=== PATIENT | female | born 1975 | race Caucasian/White ===

== ENCOUNTER 2018-11-28 20:16 | Emergency (ER) | payer OTHER, SELFPAY ==
[2018-11-28 20:19] VITALS: BP 180/113; PULSE 105; RESP 18; TEMP 37.1; O2SAT 98; BMI 35.2
[2018-11-28 20:44] LABS: Bacteria Urine None Seen; RBC Urine None Seen (0-5/HPF)
--- NOTE | 2018-11-28 20:52 | ED_ITS ---
HPI - Abdominal Pain General Chief Complaint: Abdominal Pain Stated Complaint: STOMACH PAIN Time Seen by Provider: 11/28/18 20:51 Source: patient Mode of arrival: ambulatory Limitations: no limitations History of Present Illness HPI narrative: 43-year-old female here for evaluation of right lower quadrant abdominal pain. Patient states that it has been going on for the past day or so. No urinary symptoms. No vaginal bleeding. Her last bowel movement was yesterday. Had some vomiting associated with the pain as well. No fevers. Has been taking Tylenol and ibuprofen for the symptoms prior to arrival. Related Data Previous Rx's Medication Instructions Recorded fluconazole [Diflucan] 100 mg PO DAILY #1 tab 11/28/18 ondansetron HCl [Zofran] 4 mg PO Q6-8H PRN #10 tab 11/28/18 Allergies Allergy/AdvReac Type Severity Reaction Status Date / Time Iodine and Iodide Containing Allergy Hives Verified 11/28/18 20:25 Produc latex Allergy Rash Verified 11/28/18 20:25 Penicillins Allergy Anaphylaxis Verified 11/28/18 20:25 hydromorphone [From Dilaudid] AdvReac Nausea Verified 11/28/18 20:25 Review of Systems Constitutional Denies fever(s) and Denies headache(s) ENT Ears, Nose, Mouth, and Throat: Denies headache(s) Cardiovascular Denies chest pain and Denies dyspnea Respiratory Denies dyspnea Gastrointestinal Gastrointestinal: Reports abdominal pain, Denies change in stool character, Reports nausea and Reports vomiting Genitourinary Denies dysuria and Denies vaginal discharge Musculoskeletal Denies myalgias and Denies arthralgias Integumentary/Breasts Denies rash Neurologic Denies headache(s) Hematologic/Lymphatic Denies easy bleeding and Denies easy bruising [facility] Medical History Patient denies medical problems (Acute) Social History Smoking Status: Former smoker Social History Smoking Status: Former smoker Exam Initial Vital Signs Initial Vital Signs: Vital Signs Temperature 98.8 F 11/28/18 20:19 Pulse Rate 105 H 11/28/18 20:19 Respiratory Rate 18 07/08/19 20:19 Blood Pressure 180/113 H 11/28/18 20:19 Pulse Oximetry 98 11/28/18 20:19 Const General: cooperative, comfortable, well developed, well groomed and No acute distress Orientation: alert, awake and oriented x3 HENMT Head: normal to inspection and normocephalic Resp Effort & Inspection: normal respiratory effort Auscultation: clear to auscultation bilaterally Cardio Rate: tachycardic Rhythm: regular rhythm Pulses: radial pulses present GI Inspection: non-distended Palpation: soft, No firm, No guarding and tender (Right lower quadrant) Back/Spine/Pelvis Back: No CVA tenderness Skin Lesions: no lesions Rashes: no rashes Neuro General: alert and awake Cognition: normal cognition Speech: speech normal Motor: muscle tone normal throughout Sensory Exam: no sensory deficits noted Extrem General: normal to inspection and capillary refill normal Course Orders Ordered: ED Orders 11/28/18 20:30 Urine Microscopic Stat 11/28/18 20:44 EKG-12 Lead Stat 11/28/18 21:09 CT abdomen pelvis wo con Stat 11/28/18 21:30 Complete Blood Count AUTO DIFF Stat Comprehensive Metabolic Panel Stat Lipase Stat Partial Thromboplastin Time Stat Prothrombin Time INR Stat Discontinued Medications Acetaminophen/Codeine Phosphate (Tylenol #3 Prepack) 1 bottle MISC SEEINSTR ONE Stop: 11/28/18 23:14 Sodium Chloride (Normal Saline 0.9%) 1,000 mls @ 1,000 mls/hr IV BOLUS ONE Stop: 11/28/18 21:54 Last Infusion: 11/28/18 23:04 Dose: 0 mls/hr Admin: 11/28/18 21:36 Dose: 1,000 mls/hr Morphine Sulfate (Morphine) 4 mg IV NOW ONE Stop: 11/28/18 20:56 Last Admin: 11/28/18 21:35 Dose: 4 mg Ondansetron HCl (Zofran) 4 mg IV NOW ONE Stop: 11/28/18 20:56 Last Admin: 11/28/18 21:35 Dose: 4 mg Ondansetron HCl (Zofran) 4 mg IV NOW ONE Stop: 11/28/18 22:58 Last Admin: 11/28/18 23:00 Dose: 4 mg Ondansetron HCl (Zofran Odt Prepack) 1 bottle MISC SEEINSTR ONE Stop: 11/28/18 23:14 Vital Signs - 8 hr 11/28/18 20:19 11/28/18 22:55 Temperature 98.8 F Pulse Rate 105 H 84 Respiratory Rate 18 19 Blood Pressure 180/113 H Blood Pressure [Left Arm] 167/98 H Pulse Oximetry 98 99 MDM - Abdominal Pain Lab Data Attestation: I reviewed the patient's lab results. Result diagrams: 11/28/18 21:30 11/28/18 21:30 Lab Results 11/28/18 11/28/18 11/28/18 Range/Units 20:30 21:30 21:30 WBC 9.3 (4.5-11.0) X10^3/uL RBC 4.88 (4.0-5.2) X10^6/uL Hgb 14.6 (12.0-16.0) g/dL Hct 42.5 (36-46) % MCV 87.2 (80-100) fL MCH 30.0 (26-34) PG MCHC 34.4 (30-36) % RDW 12.7 (11.6-14.8) % Plt Count 259 (150-400) X10^3/uL Neut % (Auto) 52.8 (50-75) % Lymph % (Auto) 37.9 (25-40) % [place] % (Auto) 7.3 (3-14) % Eos % (Auto) 1.4 L (2-4) % Baso % (Auto) 0.6 (0-2) % Neut # (Auto) 4900 (1583-0621) /uL Lymph # (Auto) 3500 (8599-8513) /uL [place] # (Auto) 700 (0-900) /uL Eos # (Auto) 100 (0-450) /uL Baso # (Auto) 100 (0-100) /uL PT 10.3 (10.1-12.7) SECONDS INR 0.9 (0.9-1.3) APTT 31 (26.4-36.2) SECONDS Sodium (137-145) mmol/L Potassium (3.4-5.1) mmol/L Chloride (98-107) mmol/L Carbon Dioxide (22-32) mmol/L BUN (7-17) mg/dL Creatinine (0.52-1.04) mg/dL Estimated GFR (>60) mL/min BUN/Creatinine Ratio (6-22) Glucose (70-100) mg/dL Calcium (8.4-10.2) mg/dL Total Bilirubin (0.2-1.3) mg/dL AST (14-36) IU/L ALT (9-52) IU/L Alkaline Phosphatase (38-126) U/L Total Protein (6.3-8.2) g/dL Albumin (3.5-5.0) g/dL Globulin (1.7-4.1) g/dL Albumin/Globulin Ratio (1.0-2.8) Lipase (23-300) U/L Urine RBC None seen (0-5/HPF) Urine WBC 0-1/hpf (0-5/HPF) Ur Squamous Epith Cells 0-1 /hpf (0-5/HPF) Urine Bacteria None seen (None) Urine Yeast 10-30/hpf H (None) Ur Culture Indicated? Cult not indicated 11/28/18 Range/Units 21:30 WBC (4.5-11.0) X10^3/uL RBC (4.0-5.2) X10^6/uL Hgb (12.0-16.0) g/dL Hct (36-46) % MCV (80-100) fL MCH (26-34) PG MCHC (30-36) % RDW (11.6-14.8) % Plt Count (150-400) X10^3/uL Neut % (Auto) (50-75) % Lymph % (Auto) (25-40) % [place] % (Auto) (3-14) % Eos % (Auto) (2-4) % Baso % (Auto) (0-2) % Neut # (Auto) (2526-8615) /uL Lymph # (Auto) (5123-6275) /uL [place] # (Auto) (0-900) /uL Eos # (Auto) (0-450) /uL Baso # (Auto) (0-100) /uL PT (10.1-12.7) SECONDS INR (0.9-1.3) APTT (26.4-36.2) SECONDS Sodium 133 L (137-145) mmol/L Potassium 4.3 (3.4-5.1) mmol/L Chloride 97 L (98-107) mmol/L Carbon Dioxide 27 (22-32) mmol/L BUN 14 (7-17) mg/dL Creatinine 0.60 (0.52-1.04) mg/dL Estimated GFR > 60.0 (>60) mL/min BUN/Creatinine Ratio 23.3 H (6-22) Glucose 434 H (70-100) mg/dL Calcium 9.5 (8.4-10.2) mg/dL Total Bilirubin 0.3 (0.2-1.3) mg/dL AST 29 (14-36) IU/L ALT 29 (9-52) IU/L Alkaline Phosphatase 158 H (38-126) U/L Total Protein 7.0 (6.3-8.2) g/dL Albumin 3.8 (3.5-5.0) g/dL Globulin 3.2 (1.7-4.1) g/dL Albumin/Globulin Ratio 1.2 (1.0-2.8) Lipase 381 H (23-300) U/L Urine RBC (0-5/HPF) Urine WBC (0-5/HPF) Ur Squamous Epith Cells (0-5/HPF) Urine Bacteria (None) Urine Yeast (None) Ur Culture Indicated? Point of care testing: Point of Care Testing Test Results Negative Urine Dip Bedside Urine Glucose 1000 mg/dl Bedside Urine Bilirubin - Negative Bedside Urine Ketone - Negative Urine Specific [place] 1.015 Bedside Urine Occult Blood +/- Bedside Urine pH 6.0 Bedside Urine Protein - Negative Bedside Urine Urobilinogen - Negative Bedside Urine Nitrite - Negative Imaging Data CT scan - abdomen: Radiologist's impression: Read by a real radiology Appendix within normal limits No renal calculi or hydronephrosis. 2.2 cm possibly complex small cyst right ovary posterior uterus. Ultrasound follow-up suggested. Moderate fecal retention. MDM Narrative Medical decision making narrative: Patient's CT scan does show a right-sided ovarian cyst which could be the potential cause of her symptoms. I do have a low suspicion for torsion given her exam. Her appendix is unremarkable. She does have yeast in her urine. She states she has had yeast infections in the past. Will prescribe a dose of Diflucan. Hold on any further workup for now. Patient also has moderate stool burden. Her last bowel movement was yesterday. She states she feel like she needs to have a bowel movement now. Patient was given return precautions and follow-up instructions she expressed understanding and agreement with plan. Discharge Plan Departure Patient Disposition: Home Clinical Impression: Abdominal pain Qualifiers: Abdominal location: right lower quadrant Qualified Code(s): R10.31 - Right lower quadrant pain Ovarian cyst Qualifiers: Laterality: right Qualified Code(s): N83.201 - Unspecified ovarian cyst, right side Instructions: DI for Abdominal Pain-Adult Activity Restrictions/Additional Instructions: Take the medications as directed. Contact her primary provider for follow-up. Return to the emergency department for any new or worsening symptoms Prescriptions: New fluconazole [Diflucan] 100 mg tablet 100 mg PO DAILY Qty: 1 RF: 0 ondansetron HCl [Zofran] 4 mg tablet 4 mg PO Q6-8H PRN (Reason: nausea and vomiting) Qty: 10 RF: 0
[2018-11-28 20:59] LABS: Culture Indicated Urine Cult Not Indicated; Squamous Epithelial Cell Urine 0-1 /HPF (0-5/HPF); WBC Urine 0-1/HPF (0-5/HPF)
--- NOTE | 2018-11-28 21:09 | DI.CT.S_ITS ---
PROCEDURE: CT ABDOMEN PELVIS WO CON INDICATIONS: Periumbilical right lower quadrant pain for 3 days TECHNIQUE: After the administration of oral contrast, 5 mm thick sections acquired from the diaphragms to the symphysis. 5 mm coronal and sagittal reformats were performed. For radiation dose reduction, the following was used: automated exposure control, adjustment of mA and/or kV according to patient size. COMPARISON: None. FINDINGS: Image quality: Excellent. ABDOMEN: Lung bases: Lung bases are clear. Heart size is normal. Solid organs: Liver is normal in size. Gallbladder is within normal limits. Pancreas is normal in size. Spleen is normal in size. No adrenal nodules. Both kidneys are normal in size, without hydronephrosis or nephrolithiasis. Peritoneum and bowel: Bowel loops demonstrate normal wall thickness and caliber. No free fluid or air. Appendix is visualized and is within normal limits the moderate amount of fecal stasis in the colon is seen. Nodes and vessels: No retroperitoneal or mesenteric adenopathy by size criteria. Aorta and inferior vena cava are normal in size. Miscellaneous: There is a small periumbilical hernia containing fat only.. PELVIS: Genitourinary: Bladder wall thickness is normal. 2.1 x 2.1 cm complex cystic structure in right adnexa is seen. Miscellaneous: No inguinal hernias or adenopathy. Bones: No suspicious bony lesions. No vertebral body compression fractures. IMPRESSION: 1. Normal appendix. No bowel obstruction. No free fluid or free air. Mild constipation. 2. No renal stone or hydronephrosis. 3. 2.1 cm complex cystic structure in right adnexa and may represent right ovarian cyst. No discrepancies. Dictated by: Marcos Mathur M.D. on 11/29/2018 at 8:19 Approved by: Marcos Mathur M.D. on 11/29/2018 at 8:22
[2018-11-28] MEDS: ONDANSETRON 4 MG/2 ML INJ IV ×2 (21:35→23:00)
[2018-11-28] MEDS: MORPHINE 4 MG/ML INJ IV (21:35)
[2018-11-28] MEDS: SODIUM CHLORIDE 0.9% 1,000 ML 1000 ML IV (21:36)
[2018-11-28 21:37] LABS: Add Manual Diff / Slide Review NO; Basophils Absolute Auto 100 /uL (0-100); Basophils Percent Auto 0.6 % (0-2); Eosinophils Absolute Auto 100 /uL (0-450); Eosinophils Percent Auto 1.4 % (2-4); Hematocrit 42.5 % (36-46); Hemoglobin 14.6 g/dL (12.0-16.0); Lymphocytes Absolute Auto 3500 /uL (1100-4500); Lymphocytes Percent Auto 37.9 % (25-40); Mean Corpuscular HGB Conc 34.4 % (30-36); Mean Corpuscular Volume 87.2 fL (80-100); Monocytes Absolute Auto 700 /uL (0-900); Monocytes Percent Auto 7.3 % (3-14); Neutrophils Absolute Auto 4900 /uL (1500-7000); Neutrophils Percent Auto 52.8 % (50-75); Platelet Count 259 X10^3/uL (150-400); Red Blood Cell Count 4.88 X10^6/uL (4.0-5.2); Red Cell Distribution Width 12.7 % (11.6-14.8); White Blood Cell Count 9.3 X10^3/uL (4.5-11.0)
[2018-11-28 21:43] LABS: INR 0.9 (0.9-1.3); Prothrombin Time 10.3 SECONDS (10.1-12.7)
[2018-11-28 21:46] LABS: PTT Partial Thromboplastin Tim 31 SECONDS (26.4-36.2)
[2018-11-28 21:48] LABS: Alanine Aminotransferase 29 IU/L (9-52); Albumin 3.8 g/dL (3.5-5.0); Albumin Globulin Ratio 1.2 (1.0-2.8); Alkaline Phosphatase 158 U/L (38-126); Aspartate Aminotransferase 29 IU/L (14-36); BUN Creatinine Ratio 23.3 (6-22); Bilirubin Total 0.3 mg/dL (0.2-1.3); Blood Urea Nitrogen 14 mg/dL (7-17); Calcium 9.5 mg/dL (8.4-10.2); Carbon Dioxide 27 mmol/L (22-32); Chloride 97 mmol/L (98-107); Estimated Glomerular Filt Rate > 60.0 mL/min (>60); Globulin 3.2 g/dL (1.7-4.1); Glucose 434 mg/dL (70-100); HEMOLYSIS < 15 (0-50); Lipase 381 U/L (23-300); Potassium 4.3 mmol/L (3.4-5.1); Sodium 133 mmol/L (137-145)
[2018-11-28 22:55] VITALS: BP 167/98; PULSE 84; RESP 19; O2SAT 99
[2018-11-28] MEDS: ONDANSETRON 4 MG ODT PREPACK 1 BOTTLE MISC (23:21)
[2018-11-28] MEDS: CODEINE/APAP 30/300 PREPACK 1 BOTTLE MISC (23:21)
[2018-11-28 23:32] VITALS: BP 167/98; PULSE 85; RESP 14; O2SAT 99
== END 2018-11-28 23:34 | disposition home or self-care (01) ==
PROVIDERS: Nurse Practitioner; Emergency Provider Emergency Medicine
DX: R10.31 Right lower quadrant pain (principal); N83.201 Unspecified ovarian cyst, right side; R00.0 Tachycardia, unspecified
CPT/HCPCS: 36591; 74176; 80053; 81003; 81015; 81025; 83690; 85025; 85610; 85730; 93005; 96361; 96374; 96375; 96376; 99283; 99285; J2270; J2405

== ENCOUNTER 2019-04-09 20:50 | Emergency (ER) | payer BC, SELFPAY ==
[2019-04-09 20:59] VITALS: BP 185/111; PULSE 100; RESP 18; TEMP 36.8; O2SAT 99
--- NOTE | 2019-04-09 21:10 | ED_ITS ---
HPI - Chest Pain General Chief Complaint: Skin/Abscess/Foreign Body Stated Complaint: pain in right breast and arm pit x 30 days Time Seen by Provider: 04/09/19 20:55 Source: patient Mode of arrival: Ambulatory Limitations: no limitations History of Present Illness HPI narrative: This is a 44-year-old female comes to the emergency department complaint of right breast pain radiating towards her armpit for the last 30 days. Patient states initially it is or was some pain in her chest and shortness of breath. The shortness of breath has improved but she continues to have pain in her right breast. She states that it gets quite tender to touch the pain has been increasing and spreading and sometimes even radiates into the nipple area. She has not had any drainage, no galactorrhea, no blood from the nipple. Patient has not appreciated any obvious redness but her boyfriend occasionally note some but not consistently. She has not noted any lumps or nodules. She denies fevers. She denies nausea or vomiting. She denies any issues with bowel movements or urination. She states that the pain does seem to radiate towards the back of chest. Related Data Previous Rx's Medication Instructions Recorded fluconazole [Diflucan] 100 mg PO DAILY #1 tab 11/28/18 ondansetron HCl [Zofran] 4 mg PO Q6-8H PRN #10 tab 11/28/18 clindamycin HCl 300 mg PO QID 10 Days #40 cap 04/09/19 ondansetron HCl [Zofran] 4 mg PO Q6H PRN #10 tab 04/09/19 oxycodone-acetaminophen [Percocet] 1 tab PO QID PRN #10 tab 04/09/19 Allergies Allergy/AdvReac Type Severity Reaction Status Date / Time Iodine and Iodide Containing Allergy Hives Verified 11/28/18 20:25 Produc latex Allergy Rash Verified 11/28/18 20:25 Penicillins Allergy Anaphylaxis Verified 11/28/18 20:25 hydromorphone [From Dilaudid] AdvReac Nausea Verified 11/28/18 20:25 Review of Systems Review of Systems ROS Unobtainable: All systems reviewed & are unremarkable except as noted in HPI and below Constitutional Constitutional: Denies chills, Denies fever(s), Denies lethargy and Denies weakness Cardiovascular Cardiovascular: Reports chest pain (right breast), Denies irregular heart rhythm, Denies lightheadedness, Denies palpitations, Denies dyspnea, Denies dyspnea on exertion and Denies orthopnea Respiratory Respiratory: Denies change in phlegm color, Denies chest congestion, Denies cough, Denies hemoptysis, Denies dyspnea, Denies dyspnea on exertion, Denies stridor and Denies wheezing Gastrointestinal Gastrointestinal: Denies abdominal pain, Denies change in bowel habits, Denies diarrhea, Denies nausea and Denies vomiting Genitourinary Genitourinary: Denies hematuria, Denies urinary frequency, Denies nipple discharge, Denies dysuria, Denies flank pain and Denies urinary urgency Musculoskeletal Musculoskeletal: Reports back pain (occasionally pain radiates to back.) and Denies limited range of motion Integumentary/Breasts Skin/Breast: Denies pruritus, Denies new lesions, Denies nipple discharge, Reports erythema (occasionally), Denies rash, Denies sores, Denies unusual bruising and Denies wounds Neurologic Neurologic: Denies focal weakness, Denies sensory deficit, Denies paresthesias and Denies weakness Endocrine Endocrine: Denies palpitations Allergic/Immunologic Allergic/Immunologic: Denies wheezing Patient History Medical History Patient denies medical problems (Acute) Social History Smoking Status: Former smoker alcohol intake frequency: 0-2 drinks per day Substance Use Type: marijuana Exam Narrative Exam Narrative: GENERAL: Alert and oriented x three, obese female in [id number] distress. HEENT: Head normocephalic, atraumatic, EOMI, pupils reactive, face symmetric, moist mucous membranes NECK: Supple, full range of motion CARDIOVASCULAR: Regular rate and rhythm without murmurs, rubs or gallops. Patient does have tenderness over the right breast particularly at the 12 o'clock position about 2 cm above the nipple but in general on the upper breast from 3:00 to 9:00 a.m. radiating toward the axilla. I am not able to palpate any discrete large lumps or fluctuant fluid collections. There is no swelling. There is no erythema or warmth. And unable to express any discharge from the nipple. There is no peau de orange. Patient does not have any right axillary lymphadenopathy. RESPIRATORY: Breath sounds equal bilaterally, no wheezes rales or rhonchi. ABDOMEN: Soft, nontender. Normoactive bowel sounds all 4 quadrants. No guarding or rebound, rigidity, no mass : No CVA tenderness EXTREMITIES: Normal range of motion, no clubbing or edema. Neurovascularly intact NEUROLOGICAL: Cranial nerves II through XII grossly intact. Moving all extremities SKIN: Warm, dry, no petechiae, no rashes or lesions. Initial Vital Signs Initial Vital Signs: Vital Signs Temperature 98.2 F 04/09/19 20:59 Pulse Rate 100 H 04/09/19 20:59 Respiratory Rate 18 04/09/19 20:59 Blood Pressure 185/111 H 04/09/19 20:59 Pulse Oximetry 99 04/09/19 20:59 Course Orders Ordered: ED Orders 04/09/19 21:10 XR chest 1V Stat 04/09/19 21:11 US breast RT limited Stat 04/09/19 21:23 Complete Blood Count AUTO DIFF Stat Comprehensive Metabolic Panel Stat Procalcitonin Stat Discontinued Medications Hydrocodone Bitart/Acetaminophen ([place] 5/325) 1 tab PO NOW ONE Stop: 04/09/19 21:55 Last Admin: 04/09/19 21:58 Dose: 1 tab Documented by: ZAC Clindamycin HCl (Cleocin) 300 mg PO NOW ONE Stop: 04/09/19 22:15 Last Admin: 04/09/19 22:21 Dose: 300 mg Documented by: ZAC Ketorolac Tromethamine (Toradol) 30 mg IM NOW ONE Stop: 04/09/19 21:11 Last Admin: 04/09/19 21:17 Dose: 30 mg Documented by: ZAC Ondansetron HCl (Zofran Odt) 4 mg SL NOW ONE Stop: 04/09/19 21:55 Last Admin: 04/09/19 21:57 Dose: 4 mg Documented by: ZAC Vital Signs Vital signs: Vital Signs - 8 hr 04/09/19 20:59 04/09/19 22:29 Temperature 98.2 F Pulse Rate 100 H 89 Respiratory Rate 18 20 Blood Pressure 185/111 H 185/117 H Pulse Oximetry 99 99 MDM - Chest Pain Lab Data Attestation: I reviewed the patient's lab results. Result diagrams: 04/09/19 21:23 04/09/19 21:23 Labs: Lab Results 04/09/19 04/09/19 04/09/19 Range/Units 21:23 21:23 21:23 WBC 11.6 H (4.5-11.0) X10^3/uL RBC 4.91 (4.0-5.2) X10^6/uL Hgb 14.9 (12.0-16.0) g/dL Hct 43.5 (36-46) % MCV 88.5 (80-100) fL MCH 30.3 (26-34) PG MCHC 34.2 (30-36) % RDW 12.7 (11.6-14.8) % Plt Count 329 (150-400) X10^3/uL Neut % (Auto) 60.9 (50-75) % Lymph % (Auto) 29.8 (25-40) % [place] % (Auto) 7.0 (3-14) % Eos % (Auto) 1.5 L (2-4) % Baso % (Auto) 0.8 (0-2) % Neut # (Auto) 7100 H (7224-3455) /uL Lymph # (Auto) 3500 (5413-4891) /uL [place] # (Auto) 800 (0-900) /uL Eos # (Auto) 200 (0-450) /uL Baso # (Auto) 100 (0-100) /uL Sodium 131 L (137-145) mmol/L Potassium 4.5 (3.4-5.1) mmol/L Chloride 95 L (98-107) mmol/L Carbon Dioxide 28 (22-32) mmol/L BUN 16 (7-17) mg/dL Creatinine 0.70 (0.52-1.04) mg/dL Estimated GFR > 60.0 (>60) mL/min BUN/Creatinine Ratio 22.9 H (6-22) Glucose 474 H (70-100) mg/dL Calcium 9.9 (8.4-10.2) mg/dL Total Bilirubin 0.5 (0.2-1.3) mg/dL AST 34 (14-36) IU/L ALT 34 (<35) IU/L Alkaline Phosphatase 178 H (38-126) U/L Total Protein 7.2 (6.3-8.2) g/dL Albumin 4.1 (3.5-5.0) g/dL Globulin 3.1 (1.7-4.1) g/dL Albumin/Globulin Ratio 1.3 (1.0-2.8) Procalcitonin < 0.05 (<0.5) ng/mL Point of Care Testing Test Results Negative Imaging Data Chest x-ray: Radiologist's impression: [address] [address] XRay Report Signed Patient: Ewa Gross MMR#: [id number] : 1975Acct:[id number] Age/Sex: 44 / FDate of Service: 04/09/19 Loc: ED Accession Number: [id number] Procedure: XR chest 1V Ordering Provider: Renetta Perry D.O. PROCEDURE: XR CHEST 1V INDICATIONS: right breast/chest pain TECHNIQUE: One view of the chest was acquired. COMPARISON: None. FINDINGS: Surgical changes and devices: None. Lungs and pleura: Lungs are clear. No pleural effusions or pneumothorax. Mediastinum: Mediastinal contours appear normal. Heart size is normal. Bones and chest wall: No suspicious bony lesions. Overlying soft tissues appear unremarkable. IMPRESSION: Normal chest. Dictated by: Aliya Smith M.D. on 04/09/2019 at 21:47 Approved by: Aliya Smith M.D. on 04/09/2019 at 21:47 breast US: Radiologist's impression: prelim negative for abscess. [address] [address] Ultrasound Report Signed Patient: Ewa Gross MMR#: [id number] : 1975Acct:[id number] Age/Sex: 44 / FDate of Service: 04/09/19 Loc: ED Accession Number: [id number] Procedure: US breast RT limited Ordering Provider: Renetta Perry D.O. PROCEDURE: US BREAST RT LIMITED COMPARISON: None. INDICATIONS: RIGHT BREAST PAIN, OCCASIONAL REDNESS x 30 DAYS WORSENING TECHNIQUE: Grayscale and color Doppler sonographic imaging of the upper inner quadrant of the right breast was performed. FINDINGS: Normal tissue without cystic or solid mass, fluid collection, or suspicious shadow. No increased vascularity. IMPRESSION: 1. No sonographic abnormality in the area of pain. 2. Completion of the workup with a diagnostic mammogram is recommended. 3. BI-RADS one-negative. Dictated by: Aliya Smith M.D. on 04/09/2019 at 21:58 Approved by: Aliya Smith M.D. on 04/09/2019 at 22:01 [facility] Narrative Medical decision making narrative: Patient has discrete tenderness in her right breast on palpation she does not have out any assist erythema or signs of mastitis but we did discuss doing a short course of antibiotics. Ultrasound did not show abscess. X-ray did not show any other changes behind the breast and lab work does not show major abnormalitiesA mildly elevated white count 11.6, sodium is 131 chloride 95. Glucose is 474 and alk-phos is 178, procalcitonin is less than 0.05 making the likelihood of bacterial infection less. I discussed with patient she does need a mammogram to rule out cancer. Patient is aware that if her symptoms resolve with the antibiotics she still needs to follow up and get a mammogram. Patient was given pain medication Toradol was not helpful although she does have the ultrasound immediately afterwards. She did request something by mouth in de ferred anything IM. She had politely refused an IV and preferred blood draw. She states she has had [place] and Percocet in the past they make her nauseated but do not cause other issues. We tried 1 dose of [place] which was mildly helpful. She requested to try Percocet for her prescription as she states it does not make her quite as nauseated but did ask for Zofran prescription. She continues to be hypertensive which she states is her normal. she is feeling more comfortable at this time. All questions were answered. Discharge Plan Departure Patient Disposition: Home Clinical Impression: Breast pain, right Discharge Date/Time: 04/09/19 22:30 Instructions: DI for Breast Pain (Mastalgia) Activity Restrictions/Additional Instructions: Follow up with your primary care physician in the next 24-48 hours for recheck and to get set up for mammogram. You need additional imaging for evaluation of your right breast pain. Even if symptoms resolve with antibiotics you need to follow up and have a mammogram. Take antibiotics until gone. Take pain medication as prescribed. This medication can make you sleepy do not drive, perform hazardous activities or make any major decisions while taking it. Return to the emergency department for fevers greater 100.4 F, new swelling, new redness, new masses, nodules, new numbness, weakness or tingling in your extremities, shortness of breath, lightheadedness or passing-out, persistent vomiting or other new or concerning symptoms. Prescriptions: New ondansetron HCl [Zofran] 4 mg tablet 4 mg PO Q6H PRN (Reason: nausea and vomiting) Qty: 10 RF: 0 oxycodone-acetaminophen [Percocet] 5-325 mg tablet 1 tab PO QID PRN (Reason: pain) Qty: 10 RF: 0 clindamycin HCl 300 mg capsule 300 mg PO QID 10 Days Qty: 40 RF: 0 No Action fluconazole [Diflucan] 100 mg tablet 100 mg PO DAILY Qty: 1 RF: 0 ondansetron HCl [Zofran] 4 mg tablet 4 mg PO Q6-8H PRN (Reason: nausea and vomiting) Qty: 10 RF: 0 Referrals: Eva Cadena PA-C [Non-Staff] - Stand Alone Forms: Work Release Note
[2019-04-09] MEDS: KETOROLAC 60 MG/2 ML VIAL 30 MG IM (21:17)
[2019-04-09 21:35] LABS: Add Manual Diff / Slide Review NO; Basophils Absolute Auto 100 /uL (0-100); Basophils Percent Auto 0.8 % (0-2); Eosinophils Absolute Auto 200 /uL (0-450); Eosinophils Percent Auto 1.5 % (2-4); Hematocrit 43.5 % (36-46); Hemoglobin 14.9 g/dL (12.0-16.0); Lymphocytes Absolute Auto 3500 /uL (1100-4500); Lymphocytes Percent Auto 29.8 % (25-40); Mean Corpuscular HGB Conc 34.2 % (30-36); Mean Corpuscular Hemoglobin 30.3 PG (26-34); Mean Corpuscular Volume 88.5 fL (80-100); Monocytes Absolute Auto 800 /uL (0-900); Neutrophils Absolute Auto 7100 /uL (1500-7000); Neutrophils Percent Auto 60.9 % (50-75); Platelet Count 329 X10^3/uL (150-400); Red Blood Cell Count 4.91 X10^6/uL (4.0-5.2); Red Cell Distribution Width 12.7 % (11.6-14.8); White Blood Cell Count 11.6 X10^3/uL (4.5-11.0)
[2019-04-09 21:46] LABS: Alanine Aminotransferase 34 IU/L (<35); Albumin 4.1 g/dL (3.5-5.0); Albumin Globulin Ratio 1.3 (1.0-2.8); Alkaline Phosphatase 178 U/L (38-126); Aspartate Aminotransferase 34 IU/L (14-36); BUN Creatinine Ratio 22.9 (6-22); Bilirubin Total 0.5 mg/dL (0.2-1.3); Blood Urea Nitrogen 16 mg/dL (7-17); Calcium 9.9 mg/dL (8.4-10.2); Carbon Dioxide 28 mmol/L (22-32); Chloride 95 mmol/L (98-107); Estimated Glomerular Filt Rate > 60.0 mL/min (>60); Globulin 3.1 g/dL (1.7-4.1); Glucose 474 mg/dL (70-100); HEMOLYSIS 15 (0-50); Potassium 4.5 mmol/L (3.4-5.1); Sodium 131 mmol/L (137-145); Total Protein 7.2 g/dL (6.3-8.2)
[2019-04-09] MEDS: ONDANSETRON 4 MG ODT SL (21:57)
[2019-04-09] MEDS: HYDROCODONE/ACET 5/325 TABLET 1 TAB PO (21:58)
[2019-04-09 22:04] LABS: Procalcitonin < 0.05 ng/mL (<0.5)
[2019-04-09] MEDS: CLINDAMYCIN 150 MG CAPSULE 300 MG PO (22:21)
[2019-04-09 22:29] VITALS: BP 185/117; PULSE 89; RESP 20; O2SAT 99
== END 2019-04-09 22:30 | disposition home or self-care (01) ==
PROVIDERS: Emergency Provider Emergency Medicine
DX: N64.4 Mastodynia (principal)
CPT/HCPCS: 36415; 71045; 76642; 80053; 81025; 84145; 85025; 96372; 99282; 99284; J1885

== ENCOUNTER 2019-12-08 14:24 | Observation (INO) | payer BC, SELFPAY ==
[2019-12-08] VITALS (20 sets, daily range): BP systolic 119–173; BP diastolic 73–99; PULSE 94–114; RESP 11–24; TEMP 36.8; O2SAT 93–100
--- NOTE | 2019-12-08 15:11 | DI.RAD.S_ITS ---
PROCEDURE: XR CHEST 1V INDICATIONS: Chest pain TECHNIQUE: One view of the chest was acquired. COMPARISON: [facility], CR, XR CHEST 1V, 04/09/2019, 21:15. FINDINGS: Surgical changes and devices: None. Lungs and pleura: Lungs are clear. No pleural effusions or pneumothorax. Mediastinum: Mediastinal contours appear normal. Heart size is normal. Bones and chest wall: No suspicious bony lesions. Overlying soft tissues appear unremarkable. IMPRESSION: No acute cardiopulmonary process demonstrated radiographically. Dictated by: Gabriel Cuenca M.D. on 12/08/2019 at 16:03 Approved by: Gabriel Cuenca M.D. on 12/08/2019 at 16:03
--- NOTE | 2019-12-08 15:35 | ED.NAVMDI ---
HPI - Nausea/Vomiting/Diarrhea <Dede Harvey DO - Last Filed: 12/09/19 07:20> General Chief complaint: Nausea/Vomiting/Diarrhea Stated complaint: Dizzy Spells, Nausea, Vomitting Time Seen by Provider: 12/08/19 15:19 Source: patient Mode of arrival: Family Vehicle Limitations: no limitations History of Present Illness HPI Narrative: Patient is a 44-year-old female who presents with sudden-onset dizziness no it started 2 nights ago. It is definitely worse when she opens her eyes and moves she has been extremely nauseous and vomited a few times. She denies chest pain or palpitations no numbness tingling or weakness. This never happened to her in the past. It has been quite persistent and not getting any better which is why they came to the emergency department today. Most of the history is from her he is only able to mumble is and give yes and no answers MD complaint: nausea Related Data Home Medications Medication Instructions Recorded Confirmed albuterol sulfate 2 puff INHALATION Q4-6H PRN 12/09/19 12/09/19 cyclobenzaprine 10 mg PO TID PRN 12/09/19 12/09/19 fluticasone propionate [Flovent 1 puff INHALATION BID PRN 12/09/19 12/09/19 HFA] glimepiride 4 mg PO DAILY 12/09/19 12/09/19 lisinopril 20 mg PO BID 12/09/19 12/09/19 Allergies Allergy/AdvReac Type Severity Reaction Status Date / Time Iodine and Iodide Containing Allergy Hives Verified 12/08/19 15:09 Produc latex Allergy Rash Verified 12/08/19 15:09 Penicillins Allergy Anaphylaxis Verified 12/08/19 15:09 hydromorphone [From Dilaudid] AdvReac Nausea Verified 12/08/19 15:09 Review of Systems <DO Tereza Bojorquez Last Filed: 12/09/19 07:20> Review of Systems Narrative: GENERAL: Denies chills, fatigue, malaise, fever, sweats, travel HEENT: Denies sinus pain, ear pain, sore throat, difficulty swallowing, neck pain RESPIRATORY: Denies dyspnea, cough, wheezing, hemoptysis, sputum. CARDIOVASCULAR: Denies chest pain, palpitations, orthopnea, edema GASTROINTESTINAL: See HPI Denies abdominal pain, diarrhea, constipation, melena. : Denies dysuria, frequency, incontinence, hematuria, urinary retention, flank pain. MUSCULOSKELETAL: Denies weakness, joint pain, or bony pain SKIN: No rash, no erythema, no pruritus NEUROLOGIC: Dizziness see HPI PSYCHIATRIC: No concerning psychosocial issues. 12 point review of systems is negative except for those stated above and HPI Patient History <Dede Harvey DO - Last Filed: 12/09/19 07:20> Medical History (Updated 12/09/19 @ 01:05 by PAIGE Clancy) Asthma (Acute) Bipolar 1 disorder (Acute) Colon polyps (Acute) Fibromyalgia (Acute) Hypertension (Acute) Type 2 diabetes mellitus (Acute) Surgical History (Updated 12/09/19 @ 01:05 by PAIGE Clancy) History of colonoscopy (Acute) Family History (Updated 12/09/19 @ 01:09 by PAIGE Clancy) Father Hypertension Bipolar disorder Mother Cancer Diabetes mellitus Daughter No significant medical problems Social History household members: significant other, family and children Smoking Status: Former smoker alcohol intake: current Smoking Status: Former smoker alcohol intake frequency: 0-2 drinks per day Substance Use Type: marijuana Exam <Dede Harvey DO - Last Filed: 12/09/19 07:20> Initial Vital Signs Initial Vital Signs: Vital Signs Temperature 98.2 F 12/08/19 15:04 Pulse Rate 114 H 12/08/19 15:04 Respiratory Rate 19 12/08/19 15:04 Blood Pressure 145/99 H 12/08/19 15:04 Pulse Oximetry 99 12/08/19 15:04 GENERAL: Overweight female with eyes closed appears to not feel well HEENT: Head atraumatic, pupils reactive, face symmetric, CARDIOVASCULAR: Tachycardic regular rhythm without murmurs, rubs or gallops. RESPIRATORY: Breath sounds equal bilaterally, no wheezes rales or rhonchi. ABDOMEN: Soft, nontender. Normoactive bowel sounds all 4 quadrants. No guarding or rebound. EXTREMITIES: Normal range of motion, no clubbing or edema. Neurovascularly intact NEUROLOGICAL: Alert tandem mill roller strength bilaterally SKIN: Warm, dry, no laceration, no petechiae, no rashes or lesions. <Mary Cooper MD - Last Filed: 12/08/19 23:04> Initial Vital Signs Initial Vital Signs: Vital Signs Temperature 98.2 F 12/08/19 15:04 Pulse Rate 114 H 12/08/19 15:04 Respiratory Rate 19 12/08/19 15:04 Blood Pressure 145/99 H 12/08/19 15:04 Pulse Oximetry 99 12/08/19 15:04 Course <Dede Harvey DO - Last Filed: 12/09/19 07:20> Orders Ordered: Albuterol (Ventolin Hfa) 2 puff INH RTQ4HR PRN PRN Reason: Shortness Of Breath Dextrose (D50w) 25 gm IV PRN PRN; Protocol PRN Reason: Hypoglycemia Dextrose (D50w) 25 gm IV PRN PRN; Protocol PRN Reason: Hypoglycemia Diphenhydramine HCl (Benadryl) 50 mg IV Q6HR PRN PRN Reason: Vertigo Heparin Sodium (Porcine) (Heparin) 5,000 unit SUBCUT BID UMU Sodium Chloride (Normal Saline 0.9%) 1,000 mls @ 125 mls/hr IV CONT UMU Last Admin: 12/09/19 01:26 Dose: 125 mls/hr Documented by: LORETTA Insulin Aspart (Novolog Flexpen) 0 unit SUBCUT Q6H UMU; Protocol Last Admin: 12/09/19 06:22 Dose: 4 unit Documented by: LORETTA Cosigned by: CAMDEN Insulin Glargine (Lantus Solostar (Pen)) 10 unit SUBCUT BID UMU Lorazepam (Ativan) 1 mg IV Q4HR PRN PRN Reason: Nausea Last Admin: 12/09/19 01:49 Dose: 1 mg Documented by: LORETTA Meclizine HCl (Antivert) 25 mg PO Q8H PRN PRN Reason: Vertigo Methylprednisolone (Solu-Medrol 125 Mg Vial) 80 mg IV Q8H UMU Metoclopramide HCl (Reglan) 10 mg IV Q6HR PRN PRN Reason: Nausea And Vomiting Naloxone HCl (Narcan) 0.2 mg IV Q2MIN PRN PRN Reason: Opiate Reversal Ondansetron HCl (Zofran) 8 mg IV Q8HR PRN PRN Reason: Nausea And Vomiting Promethazine HCl (Phenadoz) 12.5 mg PA Q6HR PRN PRN Reason: Nausea And Vomiting Discontinued Medications Diazepam (Valium) 2 mg IV NOW ONE Stop: 12/08/19 17:45 Last Admin: 12/08/19 18:00 Dose: 2 mg Documented by: JOSELITO Diphenhydramine HCl (Benadryl) 50 mg IV NOW ONE Stop: 12/08/19 19:13 Last Admin: 12/08/19 19:24 Dose: 50 mg Documented by: JOSELITO Sodium Chloride (Normal Saline 0.9%) 1,000 mls @ 1,000 mls/hr IV BOLUS ONE Stop: 12/08/19 17:39 Last Infusion: 12/08/19 22:59 Dose: 0 mls/hr Documented by: Admin: 12/08/19 16:53 Dose: 1,000 mls/hr Documented by: JOSELITO Sodium Chloride (Normal Saline 0.9%) 1,000 mls @ 1,000 mls/hr IV BOLUS ONE Stop: 12/08/19 17:57 Last Infusion: 12/08/19 18:07 Dose: 0 mls/hr Documented by: Admin: 12/08/19 18:06 Dose: 1,000 mls/hr Documented by: JOSELITO Ondansetron HCl 8 mg/ Sodium (Chloride) 54 mls @ 216 mls/hr IV NOW ONE Stop: 12/08/19 19:13 Last Infusion: 12/08/19 20:37 Dose: 0 mls/hr Documented by: Admin: 12/08/19 19:38 Dose: 216 mls/hr Documented by: YANDY Insulin Aspart (Novolog Flexpen) 0 unit SUBCUT ACHS UMU; Protocol Last Admin: 12/09/19 01:26 Dose: 9 unit Documented by: LORETTA Cosigned by: JADA Insulin Aspart (Novolog Flexpen) 5 unit SUBCUT NOW ONE Stop: 12/09/19 01:01 Last Admin: 12/09/19 02:55 Dose: Not Given Documented by: LORETTA Insulin Glargine (Lantus Solostar (Pen)) 10 unit SUBCUT BEDTIME UMU Lorazepam (Ativan) 1 mg IV NOW ONE Stop: 12/08/19 19:35 Last Admin: 12/08/19 19:38 Dose: 1 mg Documented by: YANDY Lorazepam (Ativan) 1 mg IV Q6HR PRN PRN Reason: Nausea Meclizine HCl (Antivert) 25 mg PO NOW ONE Stop: 12/08/19 16:41 Last Admin: 12/08/19 16:53 Dose: 25 mg Documented by: JOSELITO Methylprednisolone (Solu-Medrol 125 Mg Vial) 125 mg IV NOW ONE Stop: 12/08/19 19:13 Last Admin: 12/08/19 19:25 Dose: 125 mg Documented by: JOSELITO Ondansetron HCl (Zofran) 4 mg IV NOW ONE Stop: 12/08/19 16:41 Last Admin: 12/08/19 16:53 Dose: 4 mg Documented by: JOSELITO Ondansetron HCl (Zofran) 8 mg IV Q8HR PRN PRN Reason: Nausea And Vomiting Pantoprazole Sodium (Protonix) 40 mg IV NOW ONE Stop: 12/08/19 23:35 Last Admin: 12/09/19 01:33 Dose: 40 mg Documented by: LORETTA Vital Signs Vital signs: Vital Signs - 8 hr 12/08/19 15:04 12/08/19 15:27 12/08/19 15:28 Temperature 98.2 F Pulse Rate 114 H 105 H 105 H Respiratory Rate 19 13 14 Blood Pressure 145/99 H 158/98 H Pulse Oximetry 99 93 98 12/08/19 15:30 12/08/19 16:00 12/08/19 16:30 Temperature Pulse Rate 105 H 99 H 98 H Respiratory Rate 18 16 18 Blood Pressure 164/97 H 173/97 H Pulse Oximetry 98 99 97 12/08/19 17:00 12/08/19 17:30 12/08/19 18:11 Temperature Pulse Rate 104 H 101 H 94 H Respiratory Rate 22 19 Blood Pressure Pulse Oximetry 97 97 12/08/19 18:12 12/08/19 18:30 12/08/19 19:00 Temperature Pulse Rate 94 H 97 H 102 H Respiratory Rate 18 16 Blood Pressure 125/78 Pulse Oximetry 99 97 97 12/08/19 19:30 12/08/19 20:32 12/08/19 20:33 Temperature Pulse Rate 106 H 99 H 100 H Respiratory Rate 23 24 Blood Pressure 119/73 Pulse Oximetry 100 97 12/08/19 21:00 12/08/19 21:30 12/08/19 22:00 Temperature Pulse Rate 97 H 96 H 105 H Respiratory Rate 22 17 21 Blood Pressure 131/80 136/91 H Pulse Oximetry 98 97 97 12/08/19 22:30 Temperature Pulse Rate 104 H Respiratory Rate 17 Blood Pressure Pulse Oximetry 99 <Mary Cooper MD - Last Filed: 12/08/19 23:04> Orders Ordered: Albuterol (Ventolin Hfa) 2 puff INH RTQ4HR PRN PRN Reason: Shortness Of Breath Dextrose (D50w) 25 gm IV PRN PRN; Protocol PRN Reason: Hypoglycemia Dextrose (D50w) 25 gm IV PRN PRN; Protocol PRN Reason: Hypoglycemia Diphenhydramine HCl (Benadryl) 50 mg IV Q6HR PRN PRN Reason: Vertigo Heparin Sodium (Porcine) (Heparin) 5,000 unit SUBCUT BID UMU Sodium Chloride (Normal Saline 0.9%) 1,000 mls @ 125 mls/hr IV CONT UMU Last Admin: 12/09/19 01:26 Dose: 125 mls/hr Documented by: LORETTA Insulin Aspart (Novolog Flexpen) 0 unit SUBCUT Q6H UMU; Protocol Last Admin: 12/09/19 06:22 Dose: 4 unit Documented by: LORETTA Cosigned by: CAMDEN Insulin Glargine (Lantus Solostar (Pen)) 10 unit SUBCUT BID [facility] Lorazepam (Ativan) 1 mg IV Q4HR PRN PRN Reason: Nausea Last Admin: 12/09/19 01:49 Dose: 1 mg Documented by: LORETTA Meclizine HCl (Antivert) 25 mg PO Q8H PRN PRN Reason: Vertigo Methylprednisolone (Solu-Medrol 125 Mg Vial) 80 mg IV Q8H UMU Metoclopramide HCl (Reglan) 10 mg IV Q6HR PRN PRN Reason: Nausea And Vomiting Naloxone HCl (Narcan) 0.2 mg IV Q2MIN PRN PRN Reason: Opiate Reversal Ondansetron HCl (Zofran) 8 mg IV Q8HR PRN PRN Reason: Nausea And Vomiting Promethazine HCl (Phenadoz) 12.5 mg PA Q6HR PRN PRN Reason: Nausea And Vomiting Discontinued Medications Diazepam (Valium) 2 mg IV NOW ONE Stop: 12/08/19 17:45 Last Admin: 12/08/19 18:00 Dose: 2 mg Documented by: JOSELITO Diphenhydramine HCl (Benadryl) 50 mg IV NOW ONE Stop: 12/08/19 19:13 Last Admin: 12/08/19 19:24 Dose: 50 mg Documented by: JOSELITO Sodium Chloride (Normal Saline 0.9%) 1,000 mls @ 1,000 mls/hr IV BOLUS ONE Stop: 12/08/19 17:39 Last Infusion: 12/08/19 22:59 Dose: 0 mls/hr Documented by: Admin: 12/08/19 16:53 Dose: 1,000 mls/hr Documented by: JOSELITO Sodium Chloride (Normal Saline 0.9%) 1,000 mls @ 1,000 mls/hr IV BOLUS ONE Stop: 12/08/19 17:57 Last Infusion: 12/08/19 18:07 Dose: 0 mls/hr Documented by: Admin: 12/08/19 18:06 Dose: 1,000 mls/hr Documented by: JOSELITO Ondansetron HCl 8 mg/ Sodium (Chloride) 54 mls @ 216 mls/hr IV NOW ONE Stop: 12/08/19 19:13 Last Infusion: 12/08/19 20:37 Dose: 0 mls/hr Documented by: Admin: 12/08/19 19:38 Dose: 216 mls/hr Documented by: YANDY Insulin Aspart (Novolog Flexpen) 0 unit SUBCUT ACHS UMU; Protocol Last Admin: 12/09/19 01:26 Dose: 9 unit Documented by: LORETTA Cosigned by: JADA Insulin Aspart (Novolog Flexpen) 5 unit SUBCUT NOW ONE Stop: 12/09/19 01:01 Last Admin: 12/09/19 02:55 Dose: Not Given Documented by: LORETTA Insulin Glargine (Lantus Solostar (Pen)) 10 unit SUBCUT BEDTIME UMU Lorazepam (Ativan) 1 mg IV NOW ONE Stop: 12/08/19 19:35 Last Admin: 12/08/19 19:38 Dose: 1 mg Documented by: YANDY Lorazepam (Ativan) 1 mg IV Q6HR PRN PRN Reason: Nausea Meclizine HCl (Antivert) 25 mg PO NOW ONE Stop: 12/08/19 16:41 Last Admin: 12/08/19 16:53 Dose: 25 mg Documented by: JOSELITO Methylprednisolone (Solu-Medrol 125 Mg Vial) 125 mg IV NOW ONE Stop: 12/08/19 19:13 Last Admin: 12/08/19 19:25 Dose: 125 mg Documented by: JOSELITO Ondansetron HCl (Zofran) 4 mg IV NOW ONE Stop: 12/08/19 16:41 Last Admin: 12/08/19 16:53 Dose: 4 mg Documented by: JOSELITO Ondansetron HCl (Zofran) 8 mg IV Q8HR PRN PRN Reason: Nausea And Vomiting Pantoprazole Sodium (Protonix) 40 mg IV NOW ONE Stop: 12/08/19 23:35 Last Admin: 12/09/19 01:33 Dose: 40 mg Documented by: LORETTA Vital Signs Vital signs: Vital Signs - 8 hr 12/08/19 15:04 12/08/19 15:27 12/08/19 15:28 Temperature 98.2 F Pulse Rate 114 H 105 H 105 H Respiratory Rate 19 13 14 Blood Pressure 145/99 H 158/98 H Pulse Oximetry 99 93 98 12/08/19 15:30 12/08/19 16:00 12/08/19 16:30 Temperature Pulse Rate 105 H 99 H 98 H Respiratory Rate 18 16 18 Blood Pressure 164/97 H 173/97 H Pulse Oximetry 98 99 97 12/08/19 17:00 12/08/19 17:30 12/08/19 18:11 Temperature Pulse Rate 104 H 101 H 94 H Respiratory Rate 22 19 Blood Pressure Pulse Oximetry 97 97 12/08/19 18:12 12/08/19 18:30 12/08/19 19:00 Temperature Pulse Rate 94 H 97 H 102 H Respiratory Rate 18 16 Blood Pressure 125/78 Pulse Oximetry 99 97 97 12/08/19 19:30 12/08/19 20:32 12/08/19 20:33 Temperature Pulse Rate 106 H 99 H 100 H Respiratory Rate 23 24 Blood Pressure 119/73 Pulse Oximetry 100 97 12/08/19 21:00 12/08/19 21:30 12/08/19 22:00 Temperature Pulse Rate 97 H 96 H 105 H Respiratory Rate 22 17 21 Blood Pressure 131/80 136/91 H Pulse Oximetry 98 97 97 12/08/19 22:30 Temperature Pulse Rate 104 H Respiratory Rate 17 Blood Pressure Pulse Oximetry 99 MDM - Nausea/Vomiting/Diarrhea <Dede Harvey DO - Last Filed: 12/09/19 07:20> Lab Data Attestation: I reviewed the patient's lab results. Result diagrams: 12/09/19 06:30 12/09/19 06:30 Labs: Lab Results 12/08/19 12/08/19 12/08/19 Range/Units 16:15 16:15 16:15 WBC 12.3 H (4.5-11.0) X10^3/uL RBC 4.47 (4.0-5.2) X10^6/uL Hgb 13.6 (12.0-16.0) g/dL Hct 40.0 (36-46) % MCV 89.4 (80-100) fL MCH 30.4 (26-34) PG MCHC 34.0 (30-36) % RDW 12.9 (11.6-14.8) % Plt Count 348 (150-400) X10^3/uL Neut % (Auto) 76.0 H (50-75) % Lymph % (Auto) 18.1 L (25-40) % Sheridan % (Auto) 4.6 (3-14) % Eos % (Auto) 0.2 L (2-4) % Baso % (Auto) 1.1 (0-2) % Neut # (Auto) 9300 H (3206-6377) /uL Lymph # (Auto) 2200 (4882-6563) /uL Sheridan # (Auto) 600 (0-900) /uL Eos # (Auto) 0 (0-450) /uL Baso # (Auto) 100 (0-100) /uL PT 11.3 (10.1-12.7) SECONDS INR 1.0 (0.9-1.3) APTT 29 D (26.4-36.2) SECONDS Sodium 134 L (137-145) mmol/L Potassium 4.8 (3.4-5.1) mmol/L Chloride 102 (98-107) mmol/L Carbon Dioxide 19 L (22-32) mmol/L BUN 16 (7-17) mg/dL Creatinine 0.59 (0.52-1.04) mg/dL Estimated GFR > 60.0 (>60) mL/min BUN/Creatinine Ratio 27.1 H (6-22) Glucose 359 H (70-100) mg/dL Calcium 9.3 (8.4-10.2) mg/dL Magnesium (1.6-2.3) mg/dL Total Bilirubin 0.5 (0.2-1.3) mg/dL AST 28 (14-36) IU/L ALT 26 (<35) IU/L Alkaline Phosphatase 123 (38-126) U/L Total Creatine Kinase 43 (30-135) U/L CK-MB (CK-2) TNP CK-MB (CK-2) Rel Index TNP Troponin I < 0.012 (0.01-0.034) ng/mL Total Protein 7.0 (6.3-8.2) g/dL Albumin 4.0 (3.5-5.0) g/dL Globulin 3.0 (1.7-4.1) g/dL Albumin/Globulin Ratio 1.3 (1.0-2.8) Lipase 20 L (23-300) U/L Serum , Qual (Negative) 12/08/19 12/08/19 Range/Units 16:15 16:15 WBC (4.5-11.0) X10^3/uL RBC (4.0-5.2) X10^6/uL Hgb (12.0-16.0) g/dL Hct (36-46) % MCV (80-100) fL MCH (26-34) PG MCHC (30-36) % RDW (11.6-14.8) % Plt Count (150-400) X10^3/uL Neut % (Auto) (50-75) % Lymph % (Auto) (25-40) % Sheridan % (Auto) (3-14) % Eos % (Auto) (2-4) % Baso % (Auto) (0-2) % Neut # (Auto) (3540-0055) /uL Lymph # (Auto) (2688-3209) /uL Sheridan # (Auto) (0-900) /uL Eos # (Auto) (0-450) /uL Baso # (Auto) (0-100) /uL PT (10.1-12.7) SECONDS INR (0.9-1.3) APTT (26.4-36.2) SECONDS Sodium (137-145) mmol/L Potassium (3.4-5.1) mmol/L Chloride (98-107) mmol/L Carbon Dioxide (22-32) mmol/L BUN (7-17) mg/dL Creatinine (0.52-1.04) mg/dL Estimated GFR (>60) mL/min BUN/Creatinine Ratio (6-22) Glucose (70-100) mg/dL Calcium (8.4-10.2) mg/dL Magnesium 1.9 (1.6-2.3) mg/dL Total Bilirubin (0.2-1.3) mg/dL AST (14-36) IU/L ALT (<35) IU/L Alkaline Phosphatase (38-126) U/L Total Creatine Kinase (30-135) U/L CK-MB (CK-2) CK-MB (CK-2) Rel Index Troponin I (0.01-0.034) ng/mL Total Protein (6.3-8.2) g/dL Albumin (3.5-5.0) g/dL Globulin (1.7-4.1) g/dL Albumin/Globulin Ratio (1.0-2.8) Lipase (23-300) U/L Serum , Qual Negative (Negative) Point of Care Testing Glucose POC [address] scan - head: Radiologist's Impression: PROCEDURE: CT HEAD/BRAIN WO CON INDICATIONS: severe dizziness TECHNIQUE: Noncontrast 4.5 mm thick angled axial sections acquired from the foramen magnum to the vertex, with coronal and sagittal reformats. For radiation dose reduction, the following was used: automated exposure control, adjustment of mA and/or kV according to patient size. COMPARISON: None. FINDINGS: Image quality: Diagnostic. CSF spaces: Basal cisterns are patent. No extra-axial fluid collections. Ventricles are normal in size and shape. Brain: No midline shift. No intracranial masses or hemorrhage. Gordillo-white matter interface is normal. Skull and face: Calvarium and visualized facial bones are intact, without suspicious lesions. Sinuses: Visualized sinuses and mastoids are clear. IMPRESSION: Negative head CT. No acute intracranial hemorrhage. Dictated by: Ramin Dueñas M.D. on 12/08/2019 at 16:32 Approved by: Ramin Dueñas M.D. on 12/08/2019 at 16:33 Chest x-ray: Radiologist's Impression: PROCEDURE: XR CHEST 1V INDICATIONS: Chest pain TECHNIQUE: One view of the chest was acquired. COMPARISON: [facility], , XR CHEST 1V, 04/09/2019, 21:15. FINDINGS: Surgical changes and devices: None. Lungs and pleura: Lungs are clear. No pleural effusions or pneumothorax. Mediastinum: Mediastinal contours appear normal. Heart size is normal. Bones and chest wall: No suspicious bony lesions. Overlying soft tissues appear unremarkable. IMPRESSION: No acute cardiopulmonary process demonstrated radiographically. Dictated by: Gabriel Cuenca M.D. on 12/08/2019 at 16:03 [facility] Narrative Medical decision making narrative: The patient appears to be quite dizzy unable to open her eyes or participate an NIH stroke scale however she seems to be moving all of her extremities. Medications and fluids were given however then she was taken to CT and is now vomiting secondary to all movement. She remains extremely dizzy. She is given Valium. She is currently sleeping. Patient signed out to Dr. Delgado for further medical management <Mary Cooper MD - Last Filed: 12/08/19 23:04> Medical Records Attestation: I reviewed the patient's medical records. Lab Data Attestation: I reviewed the patient's lab results. Labs: Lab Results 12/08/19 12/08/19 12/08/19 Range/Units 16:15 16:15 16:15 WBC 12.3 H (4.5-11.0) X10^3/uL RBC 4.47 (4.0-5.2) X10^6/uL Hgb 13.6 (12.0-16.0) g/dL Hct 40.0 (36-46) % MCV 89.4 (80-100) fL MCH 30.4 (26-34) PG MCHC 34.0 (30-36) % RDW 12.9 (11.6-14.8) % Plt Count 348 (150-400) X10^3/uL Neut % (Auto) 76.0 H (50-75) % Lymph % (Auto) 18.1 L (25-40) % Sheridan % (Auto) 4.6 (3-14) % Eos % (Auto) 0.2 L (2-4) % Baso % (Auto) 1.1 (0-2) % Neut # (Auto) 9300 H (2965-2192) /uL Lymph # (Auto) 2200 (9613-0872) /uL Sheridan # (Auto) 600 (0-900) /uL Eos # (Auto) 0 (0-450) /uL Baso # (Auto) 100 (0-100) /uL PT 11.3 (10.1-12.7) SECONDS INR 1.0 (0.9-1.3) APTT 29 D (26.4-36.2) SECONDS Sodium 134 L (137-145) mmol/L Potassium 4.8 (3.4-5.1) mmol/L Chloride 102 (98-107) mmol/L Carbon Dioxide 19 L (22-32) mmol/L BUN 16 (7-17) mg/dL Creatinine 0.59 (0.52-1.04) mg/dL Estimated GFR > 60.0 (>60) mL/min BUN/Creatinine Ratio 27.1 H (6-22) Glucose 359 H (70-100) mg/dL Calcium 9.3 (8.4-10.2) mg/dL Magnesium (1.6-2.3) mg/dL Total Bilirubin 0.5 (0.2-1.3) mg/dL AST 28 (14-36) IU/L ALT 26 (<35) IU/L Alkaline Phosphatase 123 (38-126) U/L Total Creatine Kinase 43 (30-135) U/L CK-MB (CK-2) TNP CK-MB (CK-2) Rel Index TNP Troponin I < 0.012 (0.01-0.034) ng/mL Total Protein 7.0 (6.3-8.2) g/dL Albumin 4.0 (3.5-5.0) g/dL Globulin 3.0 (1.7-4.1) g/dL Albumin/Globulin Ratio 1.3 (1.0-2.8) Lipase 20 L (23-300) U/L Serum , Qual (Negative) 07/17/20 07/17/20 Range/Units 16:15 16:15 WBC (4.5-11.0) X10^3/uL RBC (4.0-5.2) X10^6/uL Hgb (12.0-16.0) g/dL Hct (36-46) % MCV (80-100) fL MCH (26-34) PG MCHC (30-36) % RDW (11.6-14.8) % Plt Count (150-400) X10^3/uL Neut % (Auto) (50-75) % Lymph % (Auto) (25-40) % Sheridan % (Auto) (3-14) % Eos % (Auto) (2-4) % Baso % (Auto) (0-2) % Neut # (Auto) (8338-6783) /uL Lymph # (Auto) (3805-1558) /uL Sheridan # (Auto) (0-900) /uL Eos # (Auto) (0-450) /uL Baso # (Auto) (0-100) /uL PT (10.1-12.7) SECONDS INR (0.9-1.3) APTT (26.4-36.2) SECONDS Sodium (137-145) mmol/L Potassium (3.4-5.1) mmol/L Chloride (98-107) mmol/L Carbon Dioxide (22-32) mmol/L BUN (7-17) mg/dL Creatinine (0.52-1.04) mg/dL Estimated GFR (>60) mL/min BUN/Creatinine Ratio (6-22) Glucose (70-100) mg/dL Calcium (8.4-10.2) mg/dL Magnesium 1.9 (1.6-2.3) mg/dL Total Bilirubin (0.2-1.3) mg/dL AST (14-36) IU/L ALT (<35) IU/L Alkaline Phosphatase (38-126) U/L Total Creatine Kinase (30-135) U/L CK-MB (CK-2) CK-MB (CK-2) Rel Index Troponin I (0.01-0.034) ng/mL Total Protein (6.3-8.2) g/dL Albumin (3.5-5.0) g/dL Globulin (1.7-4.1) g/dL Albumin/Globulin Ratio (1.0-2.8) Lipase (23-300) U/L Serum , Qual Negative (Negative) Point of Care Testing Glucose POC 370 Imaging Data Brain MRI: Radiologist's Impression: IMPRESSION: BRAIN MRI: Unremarkable. No evidence acute stroke, hemorrhage. BRAIN MR ANGIOGRAM: Unremarkable NECK MR ANGIOGRAM: Ectopic medial deviation the right internal carotid behind the pharynx. Otherwise unremarkable. No stenosis. Dictated by: Ancelmo Wallace M.D. on 12/08/2019 at 20:38 MDM Narrative Medical decision making narrative: Care is assumed. Chart is reviewed inpatient is independently examined. She still has such severe nausea that she is unable to open her eyes to fully evaluate any nystagmus. She has been medicated with IV Valium, meclizine, 4 mg of Zofran and fluid. CT scan and labs are reassuring. However clinical presentation remains dramatic. Will order stroke protocol With the possibility that this is vestibular neuritis will give her 125 mg of IV Solu-Medrol, IV Benadryl and 8 mg of Zofran to see if we can combat her vertiginous symptoms enough that she is able to lie still and on her back to tolerate the MRI. 1050pm MRI is reviewed with patient. She is re-examined. She is somewhat improved with all of the IV medications we have given her however still significantly dizzy. She is able to open her eyes enough to note that she has rotatory nystagmus with significant right lateral gaze. Just sitting up she is clearly dizzy and unable to maintain a sitting position without holding the edges of the bed. There are no other focal neurologic signs. Given the severe vertigo that she is unable to sit up, barely able to keep ice chips down and has difficulty with even opening her eyes my recommendation is hospitalization with fluids IV anti emetics benzos as needed until she is able to sit and make sure she can at least eat and drink without vomiting. At this time best diagnosis is this tubular neuritis with severe vertigo. There is no evidence of stroke, intracranial tumors masses blood clots or infection. Will plan on hospital admission. 1100pm Case if reviewed with PAIGE Frye. care is accepted. Discharge Plan Departure Patient Disposition: Admitted as Observation Clinical Impression: Vertigo Acute vestibular neuritis Qualifiers: Laterality: unspecified laterality Qualified Code(s): H81.20 - Vestibular neuronitis, unspecified ear Discharge Date/Time: 12/09/19 00:20 Referrals: Eva Cadena PA-C [Primary Care Provider] - Admit Date/Time: 12/08/19 23:04 Admit Provider: Godfrey Rodriguez
[2019-12-08 16:30] LABS: Add Manual Diff / Slide Review NO; Basophils Absolute Auto 100 /uL (0-100); Basophils Percent Auto 1.1 % (0-2); Eosinophils Absolute Auto 0 /uL (0-450); Eosinophils Percent Auto 0.2 % (2-4); Hemoglobin 13.6 g/dL (12.0-16.0); Lymphocytes Absolute Auto 2200 /uL (1100-4500); Lymphocytes Percent Auto 18.1 % (25-40); Mean Corpuscular Hemoglobin 30.4 PG (26-34); Mean Corpuscular Volume 89.4 fL (80-100); Monocytes Absolute Auto 600 /uL (0-900); Monocytes Percent Auto 4.6 % (3-14); Neutrophils Absolute Auto 9300 /uL (1500-7000); Platelet Count 348 X10^3/uL (150-400); Red Blood Cell Count 4.47 X10^6/uL (4.0-5.2); Red Cell Distribution Width 12.9 % (11.6-14.8); White Blood Cell Count 12.3 X10^3/uL (4.5-11.0)
[2019-12-08 16:36] LABS: Prothrombin Time 11.3 SECONDS (10.1-12.7)
[2019-12-08 16:39] LABS: PTT Partial Thromboplastin Tim 29 SECONDS (26.4-36.2)
--- NOTE | 2019-12-08 16:40 | DI.CT.S_ITS ---
PROCEDURE: CT HEAD/BRAIN WO CON INDICATIONS: severe dizziness TECHNIQUE: Noncontrast 4.5 mm thick angled axial sections acquired from the foramen magnum to the vertex, with coronal and sagittal reformats. For radiation dose reduction, the following was used: automated exposure control, adjustment of mA and/or kV according to patient size. COMPARISON: None. FINDINGS: Image quality: Diagnostic. CSF spaces: Basal cisterns are patent. No extra-axial fluid collections. Ventricles are normal in size and shape. Brain: No midline shift. No intracranial masses or hemorrhage. Gordillo-white matter interface is normal. Skull and face: Calvarium and visualized facial bones are intact, without suspicious lesions. Sinuses: Visualized sinuses and mastoids are clear. IMPRESSION: Negative head CT. No acute intracranial hemorrhage. Dictated by: Ramin Dueñas M.D. on 12/08/2019 at 16:32 Approved by: Ramin Dueñas M.D. on 12/08/2019 at 16:33
[2019-12-08 16:42] LABS: Alanine Aminotransferase 26 IU/L (<35); Albumin Globulin Ratio 1.3 (1.0-2.8); Alkaline Phosphatase 123 U/L (38-126); Aspartate Aminotransferase 28 IU/L (14-36); BUN Creatinine Ratio 27.1 (6-22); Bilirubin Total 0.5 mg/dL (0.2-1.3); Blood Urea Nitrogen 16 mg/dL (7-17); Calcium 9.3 mg/dL (8.4-10.2); Carbon Dioxide 19 mmol/L (22-32); Chloride 102 mmol/L (98-107); Creatine Kinase 43 U/L (30-135); Estimated Glomerular Filt Rate > 60.0 mL/min (>60); Glucose 359 mg/dL (70-100); HEMOLYSIS 27 (0-50); Lipase 20 U/L (23-300); Potassium 4.8 mmol/L (3.4-5.1); Sodium 134 mmol/L (137-145)
[2019-12-08] MEDS: ONDANSETRON 4 MG/2 ML INJ IV (16:53)
[2019-12-08] MEDS: MECLIZINE HCL 12.5 MG TABLET 25 MG PO (16:53)
[2019-12-08] MEDS: SODIUM CHLORIDE 0.9% 1,000 ML 1000 ML IV ×2 (16:53→18:06)
[2019-12-08 16:54] LABS: Troponin I < 0.012 ng/mL (0.01-0.034)
[2019-12-08 17:06] LABS: Pregnancy Test Serum,Qual Negative (Negative)
[2019-12-08] MEDS: diazePAM 10 MG/2 ML SYRINGE 2 MG IV (18:00)
--- NOTE | 2019-12-08 19:13 | DI.MRI.S_ITS ---
PROCEDURE: MR STROKE Pre- and post-contrast brain MRI, non-contrast brain MR angiogram, pre- and postcontrast neck MR angiogram INDICATIONS: severe vertigo, ? stroke reports hives with CT contrast TECHNIQUE: Brain: Noncontrast axial T1 spin echo, axial T2 fast spin echo, sagittal and axial FLAIR, coronal T2 fast spin echo, axial gradient echo, axial diffusion and ADC through the brain. After the administration of contrast, axial 3D VIBE of the cranial vasculature and brain. Brain MRA: Non-contrast 3-D time of flight MR angiogram, with multiple jmuoict-pnldhzsxs-dbtrovgwtr (MIP) reformats performed. Neck MRA: Axial and sagittal TruFISP through the neck. Coronal dynamic MR angiogram during administration of contrast in the arterial and venous phases, with 3-dimenstional afwwpgq-swnioosfh-dbxhwrjwqg (MIP) reformats constructed from subtraction images. COMPARISON: None. FINDINGS: Image quality: Excellent. BRAIN: CSF spaces: Ventricles are normal in size and shape. Basal cisterns are patent. No extra-axial fluid collections. Brain: No intracranial bleeds or mass effects. Gordillo-white matter interface is normal. Diffusion weighted images show no acute ischemic insults. Brainstem appears normal. Normal intravascular flow voids are present. No abnormal intracranial enhancement. Skull and face: Calvarial marrow signal is normal. Orbits appear normal. Sinuses: Sinuses and mastoids are clear. BRAIN MR ANGIOGRAM: Anterior circulation: Intracranial internal carotid arteries are normal in size and enhancement. The flow within the paired anterior cerebral arteries is normal and symmetric. The flow within the middle cerebral arteries is normal and symmetric. The anterior communicating artery is seen. No stenoses, occlusions, or aneurysms. Posterior circulation: The visualized portions of the vertebral arteries demonstrate normal caliber, and join to form a normal appearing basilar artery. The flow within the posterior cerebral arteries is normal and symmetric. No stenoses, occlusions, or aneurysms. NECK MR ANGIOGRAM: Carotids: Great vessels demonstrate a conventional anatomy as they arise from the aortic arch. The origins of the common carotid arteries appear patent. The calibers and courses of both common carotid arteries are normal. The bifurcation regions appear normal bilaterally. The internal carotid arteries demonstrate normal caliber. Incidental note is made medial deviation I cervical carotid into midline, behind pharyngeal tissues. Posterior circulation: The origins of the vertebral arteries appear patent. More superior portions of both vertebral arteries demonstrate normal course and caliber, and join to form a normal appearing basilar artery. Miscellaneous: Subclavian arteries appear patent. Pre-contrast images through the neck show no soft tissue abnormalities. IMPRESSION: BRAIN MRI: Unremarkable. No evidence acute stroke, hemorrhage. BRAIN MR ANGIOGRAM: Unremarkable NECK MR ANGIOGRAM: Ectopic medial deviation the right internal carotid behind the pharynx. Otherwise unremarkable. No stenosis. Dictated by: Ancelmo Wallace M.D. on 12/08/2019 at 20:38 Approved by: Ancelmo Wallace M.D. on 12/08/2019 at 20:48
[2019-12-08] MEDS: diphenhydrAMINE 50 MG/ML VIAL IV (19:24)
[2019-12-08] MEDS: methylPREDNISolone 125 MG/2 ML VIAL IV (19:25)
[2019-12-08] MEDS: ONDANSETRON 8 MG in SODIUM CHLORIDE 0.9% 50 ML 216 ML IV (19:38)
[2019-12-08] MEDS: LORazepam 2 MG/ML INJ 1 MG IV (19:38)
[2019-12-09 00:05] LABS: Magnesium 1.9 mg/dL (1.6-2.3)
--- NOTE | 2019-12-09 00:05 | P.HP_ITS ---
History of Present Illness History of Present Illness Date Patient Seen: 12/09/19 Time Patient Seen: 00:35 Chief complaint: Dizzy Spells, Nausea, Vomitting Narrative: Ms. Ewa Gross is a 44-year-old female with a past medical history significant for type 2 diabetes with poor control, hypertension, mild persistent asthma, fibromyalgia and bipolar 1 disorder who presents to the ER with severe dizziness. The patient presents to the ER with her significant other following abrupt onset of dizziness 2 evenings ago quickly followed by nausea and vomiting. Her symptoms have remained persistent and incapacitating. Her symptoms are made worse by opening her eyes or moving. Nothing seems to make her symptoms better. She has had prior episodes of dizziness the they have been short in duration and not requiring treatment. She reports no recent ill ness with no fevers and chills, no complaints of nasal congestion or sore throat. She does endorse a generalized headache she attributes to her vomiting. Denies complaints of ear or neck pain. She has no chest pain or palpitations. She reports no shortness of breath and has a history of asthma for which she uses albuterol and Flovent on as needed basis her last use over a week ago. Denies cough or wheezing. She has abdominal wall pain from vomiting. She endorses constipation and will use MiraLax as needed, her last bowel movement was yesterday. She reports urinary frequency but denies urgency burning or hematuria. Her last menstrual period was 1 week ago. She reports ankle swelling by the end of the day when working. Upon arrival to the ER the patient is afebrile with temperature of 98.2?, tachycardic at 114, blood pressure of 145 over 99, respirations of 18 saturating 97% on room air. A CT of the head was obtained which finds no acute inter cranial pathology. MR stroke was obtained finding no acute stroke or hemorrhage, angiogram was unremarkable, medial deviation of the right internal carotid artery behind the pharynx is noted without stenosis. Twelve lead EKG finds sinus tach at 106 without ectopy or block, no ischemic changes or infarct. On laboratory analysis she has white count of 12.3, hemoglobin of 13.6, hematocrit of 40.0 and platelets of 348. Her PT is 11.3 with an INR of 1.0 and PTT of 29. Her sodium is 143 and potassium is 4.8. She has a BUN of 16 and creatinine 0.59 her nonfasting glucose is 359. Her liver functions are all within normal limits with a lipase of 20 in an albumin of 4.0. Her total CK is 43 and her troponin is negative at less than 0.012. In the ER the patient received multiple medications for nausea including meclizine 25 mg, Valium 2 mg x 2, Benadryl 50 mg x 1, Zofran 4 mg and later 8 mg as well as normal saline bolus. The patient is admitted to the medicine team with vestibular neuritis with intractable nausea vomiting. Patient History Medical History (Updated 12/09/19 @ 01:05 by PAIGE Clancy) Asthma (Acute) Bipolar 1 disorder (Acute) Colon polyps (Acute) Fibromyalgia (Acute) Hypertension (Acute) Type 2 diabetes mellitus (Acute) Surgical History (Updated 12/09/19 @ 01:05 by PAIGE Clancy) History of colonoscopy (Acute) Family & Social History Family History (Updated 12/09/19 @ 01:09 by PAIGE Clancy) Father Hypertension Bipolar disorder Mother Cancer Diabetes mellitus Daughter No significant medical problems Safety & Behavioral: Feels Safe in Current Unwilling to Answer Environment Been Physically Hurt or Unwilling to Answer Threatened By a Person Tobacco & Substance use: Smoking Status Former smoker alcohol intake frequency 0-2 drinks per day Substance Use Type marijuana Comment: Patient has been currently living with her boyfriend in a single family home in [place]. 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 Alcohol: Patient endorses an occasional beer. Substance use: The patient endorses use of THC edibles that she has with her fi bromyalgia is unbearable the last use was a couple weeks ago. Advanced directives: The patient states her wish to be DNR but is presently under the affective multiple medications. At this time the patient's code status will be entered as FULL CODE TO BE FOLLOWED UP ON FOR CLARIFICATION. The patient designates her mother to be her surrogate decision maker. Meds Home Medications and Allergies Home Medications Medication Instructions Recorded Confirmed Type albuterol sulfate 2 puff INHALATION Q4-6H PRN 12/09/19 12/09/19 History fluticasone propionate [Flovent 1 puff INHALATION BID PRN 12/09/19 12/09/19 History HFA] glimepiride 4 mg PO DAILY 12/09/19 12/09/19 History lisinopril 20 mg PO BID 12/09/19 12/09/19 History Allergies Allergy/AdvReac Type Severity Reaction Status Date / Time Iodine and Iodide Containing Allergy Hives Verified 12/08/19 15:09 Produc latex Allergy Rash Verified 12/08/19 15:09 Penicillins Allergy Anaphylaxis Verified 12/08/19 15:09 hydromorphone [From Dilaudid] AdvReac Nausea Verified 12/08/19 15:09 Review of Systems Review of Systems ROS: Yes All systems reviewed with the patient and are negative except as otherwise documented Exam Vital Signs (past 8 hours): - 12/08/19 16:30 12/08/19 17:00 12/08/19 17:30 Pulse Rate 98 H 104 H 101 H Respiratory Rate 18 22 19 Blood Pressure Pulse Oximetry 97 97 12/08/19 18:11 12/08/19 18:12 12/08/19 18:30 Pulse Rate 94 H 94 H 97 H Respiratory Rate 18 Blood Pressure 125/78 Pulse Oximetry 97 99 97 12/08/19 19:00 12/08/19 19:30 12/08/19 20:32 Pulse Rate 102 H 106 H 99 H Respiratory Rate 16 23 Blood Pressure Pulse Oximetry 97 100 12/08/19 20:33 12/08/19 21:00 12/08/19 21:30 Pulse Rate 100 H 97 H 96 H Respiratory Rate 24 22 17 Blood Pressure 119/73 131/80 Pulse Oximetry 97 98 97 12/08/19 22:00 12/08/19 22:30 12/08/19 23:00 Pulse Rate 105 H 104 H 104 H Respiratory Rate 21 17 11 L Blood Pressure 136/91 H 130/86 Pulse Oximetry 97 99 97 Oxygen Delivery Method Room Air Narrative Exam Narrative: GENERAL APPEARANCE: well developed, obese female with a BMI of 35.2 who is ill- appearing. HEENT: Normocephalic, PERRLA, conjunctiva clear, patient with midline nystagmus with head of bed at 30?, pronounced vertigo when placed supine improved by laying left lateral and resolving with elevation of the head of the bed, slight left maxillary sinus tenderness to percussion, no rhinorrhea, slight tenderness over the left mastoid, mucous membranes are moist and pink without lesions or exudate. NECK/THYROID: neck supple, no JVD, no thyromegaly, trachea midline. LYMPH NODES: no cervical or supraclavicular lymphadenopathy. SKIN: [place], warm and dry, no visible lesions, rashes, ulcerations or petechiae. HEART: Tachycardic rate and rhythm, S1-S2, no murmur, no rubs or gallops, brisk capillary refill, no edema LUNGS: clear to auscultation bilaterally, no coarseness crackles or wheezing, no cough present CHEST: Symmetrical movement, no accessory muscle use, good tidal volume. ABDOMEN: Soft, no distention, no abdominal tenderness, no guarding or peritoneal signs, no organomegaly, no flank or suprapubic tenderness, active bowel tones. BACK: Normal curvature, nontender to palpation, no CVA tenderness on percussion EXTREMITIES: moves all extremities, strength is 5/5 and symmetrical, no deformities or joint effusions. NEUROLOGIC: AAO to person place and time, marked vertigo when lying flat, cranial nerves II-XII grossly intact, decreased sensation right foot light touch, hearing grossly normal bilaterally to speech. PSYCH: Patient resting quietly with eyes closed speaking in very soft voice with flat affect, cooperative, stable behavior Objective Labs Result Diagrams: 12/08/19 16:15 12/08/19 16:15 Labs: Laboratory Results - last 24 hr 12/08/19 12/08/19 12/08/19 16:15 16:15 16:15 WBC 12.3 H RBC 4.47 Hgb 13.6 Hct 40.0 MCV 89.4 MCH 30.4 MCHC 34.0 RDW 12.9 Plt Count 348 Neut % (Auto) 76.0 H Lymph % (Auto) 18.1 L [place] % (Auto) 4.6 Eos % (Auto) 0.2 L Baso % (Auto) 1.1 Neut # (Auto) 9300 H Lymph # (Auto) 2200 [place] # (Auto) 600 Eos # (Auto) 0 Baso # (Auto) 100 PT 11.3 INR 1.0 APTT 29 D Sodium 134 L Potassium 4.8 Chloride 102 Carbon Dioxide 19 L BUN 16 Creatinine 0.59 Estimated GFR > 60.0 BUN/Creatinine Ratio 27.1 H Glucose 359 H Calcium 9.3 Total Bilirubin 0.5 AST 28 ALT 26 Alkaline Phosphatase 123 Total Creatine Kinase 43 CK-MB (CK-2) TNP CK-MB (CK-2) Rel Index TNP Troponin I < 0.012 Total Protein 7.0 Albumin 4.0 Globulin 3.0 Albumin/Globulin Ratio 1.3 Lipase 20 L Serum , Qual 12/08/19 16:15 WBC RBC Hgb Hct MCV MCH MCHC RDW Plt Count Neut % (Auto) Lymph % (Auto) [place] % (Auto) Eos % (Auto) Baso % (Auto) Neut # (Auto) Lymph # (Auto) [place] # (Auto) Eos # (Auto) Baso # (Auto) PT INR APTT Sodium Potassium Chloride Carbon Dioxide BUN Creatinine Estimated GFR BUN/Creatinine Ratio Glucose Calcium Total Bilirubin AST ALT Alkaline Phosphatase Total Creatine Kinase CK-MB (CK-2) CK-MB (CK-2) Rel Index Troponin I Total Protein Albumin Globulin Albumin/Globulin Ratio Lipase Serum , Qual Negative Assessment & Plan Assessment & Plan narrative: This is a 44-year-old female patient with history of diabetes, hypertension and asthma who experienced an acute onset of his tubular neuritis 2 days ago that has persisted with intractable nausea and vomit ing since. 1. Vestibular neuritis, acute, present on admission, active. -upon arrival to the ER the patient was unable open eyes without vomiting describes room is spinning to the left. -both CT of the head and MR stroke protocol find no acute intracranial pathology. -in the ER the patient received Valium 2 mg x 2, meclizine 25 mg and methylprednisolone 125 mg with improvement but not resolution of symptoms. -ordered methylprednisolone 80 mg every 8 hours. -ordered meclizine 25 mg every 8 hours as needed. -ordered Benadryl 50 mg every 6 hours as needed. -ordered Ativan 1 mg every 4 hours as needed. -requested PT evaluation for vestibular evaluation. 2. Acute nausea vomiting secondary to severe vertigo, present on admission, active. -the patient states she has been unable to keep food or fluid down. -blood sugar on admission is elevated at 359, BUN is 16 and creatinine is 0.59. Sodium is slightly low 134 with a CO of 19. The patient's dehydrated with urine specific gravity 1.020 and 2+ ketones. -in the ER the patient received 2 L normal saline, will continue hydration at 125 cc/hour. -in the ER the patient received Zofran 4 mg followed by Zofran 8 mg as well as Benadryl 50 mg and Valium 2 mg x 2. -ordered Zofran 8 mg every 8 hours as needed. -ordered metoclopramide 10 mg every 6 hours as needed. -ordered promethazine 12.5 mg p.r. every 6 hours as needed. -patient is NPO except ice chips. 3. Diabetes type 2 uncontrolled with hyperglycemia, present on admission, active -The patient has a history of markedly elevated blood sugars and has been previously on insulin therapy but could not afford the medication. The patient is currently taking glimepiride 4 mg daily. -blood sugar on admission labs is 359, urine has 3+ glucose and 2+ protein. -ordered fingerstick blood sugars every 6 hours with low range correctional insulin. -ordered Lantus 10 mg daily. -requested social work consult for medication resources for diabetic control. 4. Essential hypertension, chronic, present on admission, stable. -blood pressure on admission is 145/99 and admission to the floor is 147/91. -will continue home regimen of lisinopril 20 mg twice daily. 5. Mild persistent asthma, chronic, stable -patient uses albuterol inhaler and Flovent inhaler on as needed basis. Her last use was 1 week ago. -no shortness of breath, cough or wheezing. -patient is presently receiving IV steroids, order albuterol inhaler MDI as needed. 6. Bipolar 1 disorder, chronic, stable. -patient is received Valium and Benadryl in the ER for vertigo and nausea. -patient has a flat affect related to multiple medication administration. -she takes no routine psychotropic medication. Will monitor and observe. VTE prophylaxis: SCDs, heparin. IV fluid: Normal saline 125 cc/hour. Diet: NPO except ice chips. Code status: Presently entered as FULL CODE, the patient has stated her wish to be do not resuscitate however received multiple medications with impaired decision-making. Resuscitation status will need to be clarified. She designates her mother [address] to be her surrogate decision maker. The patient is admitted to the hospital due to the severity of symptoms and required ongoing intervention and evaluation. Patient is admitted as observation status with expected length of stay to be less than 2 midnights. Scores GCS Stefanie coma scale eye opening: Spontaneous Stefanie coma scale verbal response: Orientated Stefanie coma scale motor response: Obey commands [place] coma scale total score: 15
[2019-12-09 00:15] VITALS: BP 147/91; PULSE 104; RESP 18; TEMP 36.5; O2SAT 96
[2019-12-09 00:16] VITALS: BMI 35.2
[2019-12-09 00:24] LABS: COVID19 -Nasal RAPID Negative (Negative)
[2019-12-09 00:31] LABS: Bilirubin Urine UA NEGATIVE (NEGATIVE); Color Urine UA YELLOW; Glucose Urine UA 3+ g/dL (Negative); Ketones Urine UA 2+ (NEGATIVE); Leukocyte Esterase Urine UA NEGATIVE (NEGATIVE); Nitrite Urine UA NEGATIVE (Negative); Occult Blood Urine UA 1+ (Negative); Protein Urine UA 2+ (Negative); Urobilinogen Urine UA 0.2 E.U./dL (0.2)
[2019-12-09 00:35] LABS: Appearance Urine UA Slightly Cloudy
[2019-12-09 00:43] LABS: Bacteria Urine Many (>30); RBC Urine 5-10/HPF (0-5/HPF); Squamous Epithelial Cell Urine 1-5 /HPF (0-5/HPF); WBC Urine 1-5/HPF (0-5/HPF)
[2019-12-09 00:44] LABS: Culture Indicated Urine Specimen Cultured
[2019-12-09] MEDS: INSULIN ASPART 100 UNIT/ML INSULN PEN SUBCUT ×2 (01:26→06:22)
[2019-12-09] MEDS: SODIUM CHLORIDE 0.9% 1,000 ML 125 ML IV ×2 (01:26→09:15)
[2019-12-09] MEDS: PANTOPRAZOLE 40 MG VIAL IV (01:33)
[2019-12-09] MEDS: LORazepam 2 MG/ML INJ 1 MG IV ×2 (01:49→12:17)
[2019-12-09 03:38] VITALS: BP 140/81; PULSE 106; RESP 18; TEMP 36.3; O2SAT 99
--- NOTE | 2019-12-09 04:58 | PC.ADMIT ---
[address] [facility] Admission Note: Safe hand off from Selam RN, ED. Patient came to the floor via portable stretcher at 0055. Patient alert and orientated but very dizzy and nauseated. Patient had a hard time transferring and is a 1 person assist w/ FWW. Patient is unsteady on her feet. Lung sounds clear, Patient is tachycardic and BP is elevated and hypertensive. Patient was educated about the use of call light, bed is low and locked and bed alarm is activated. The patient,Ewa Gross,44 y/o, was given written information regarding hospital policies, unit procedures and contact persons. Patient's smoking status: Former smoker. Vital Signs - 8 hr 12/08/19 21:00 12/08/19 21:30 12/08/19 22:00 Temperature Pulse Rate 97 H 96 H 105 H Respiratory Rate 22 17 21 Blood Pressure 131/80 136/91 H Pulse Oximetry 98 97 97 12/08/19 22:30 12/08/19 23:00 12/09/19 00:15 Temperature 97.7 F Pulse Rate 104 H 104 H 104 H Respiratory Rate 17 11 L 18 Blood Pressure 130/86 147/91 H Pulse Oximetry 99 97 96 12/09/19 03:38 Temperature 97.4 F L Pulse Rate 106 H Respiratory Rate 18 Blood Pressure 140/81 Pulse Oximetry 99
[2019-12-09 06:41] LABS: Add Manual Diff / Slide Review NO; Basophils Absolute Auto 100 /uL (0-100); Basophils Percent Auto 0.7 % (0-2); Eosinophils Absolute Auto 0 /uL (0-450); Hemoglobin 12.1 g/dL (12.0-16.0); Lymphocytes Absolute Auto 1800 /uL (1100-4500); Lymphocytes Percent Auto 10.6 % (25-40); Mean Corpuscular HGB Conc 32.8 % (30-36); Mean Corpuscular Hemoglobin 29.6 PG (26-34); Mean Corpuscular Volume 90.5 fL (80-100); Monocytes Absolute Auto 300 /uL (0-900); Monocytes Percent Auto 1.9 % (3-14); Neutrophils Absolute Auto 14600 /uL (1500-7000); Neutrophils Percent Auto 86.8 % (50-75); Platelet Count 352 X10^3/uL (150-400); Red Blood Cell Count 4.09 X10^6/uL (4.0-5.2); Red Cell Distribution Width 12.8 % (11.6-14.8); White Blood Cell Count 16.9 X10^3/uL (4.5-11.0)
[2019-12-09 06:51] LABS: BUN Creatinine Ratio 29.4 (6-22); Blood Urea Nitrogen 20 mg/dL (7-17); Calcium 8.5 mg/dL (8.4-10.2); Carbon Dioxide 17 mmol/L (22-32); Chloride 106 mmol/L (98-107); Estimated Glomerular Filt Rate > 60.0 mL/min (>60); Glucose 320 mg/dL (70-100); HEMOLYSIS < 15 (0-50); Potassium 4.4 mmol/L (3.4-5.1); Sodium 132 mmol/L (137-145)
[2019-12-09 07:35] VITALS: O2SAT 96
[2019-12-09 08:00] VITALS: BP 137/74; PULSE 101; RESP 16; TEMP 36.8; O2SAT 99
[2019-12-09] MEDS: HEPARIN 5,000 UNIT/ML VIAL 5000 UNIT SUBCUT (09:03)
[2019-12-09] MEDS: INSULIN GLARGINE 100 UNIT/ML 3ML PEN 10 UNIT SUBCUT (09:04)
[2019-12-09] MEDS: ONDANSETRON 4 MG/2 ML INJ 8 MG IV (09:06)
--- NOTE | 2019-12-09 10:39 | PT.IIE ---
Surgical History (Last Updated 12/09/19 @ 01:05 by PAIGE Clancy) History of colonoscopy (Acute) Medical History (Last Updated 12/09/19 @ 01:05 by PAIGE Clancy) Asthma (Acute) Bipolar 1 disorder (Acute) Colon polyps (Acute) Fibromyalgia (Acute) Hypertension (Acute) Type 2 diabetes mellitus (Acute) Physical Therapy Inpatient Evaluation/Re-Eval M1 PT/OT-IP Prior Functional Status Start: 12/09/19 10:01 Freq: NEEDED Status: Active Protocol: Document 12/09/19 10:02 [facility] (Rec: 12/09/19 10:39 [facility] [id number]) Medical Review Prior Functional Status Medical History Reviewed Yes Communication communication with nursing prior to treatment, pt has been up a few times to use the bathroom, is doing a little better and has been trying to eat some pudding this am. Her partner is present with her today and states that he helps her at home and often gives her support when walking. Mobility and Gait Pt reports that she does not use a assistive device to ambulate but often uses her partner as support Activities of Daily Living and IADL's PT states she is limited due to dizzyness, she notes she will often become very dizzy in the shower and has difficulty making it up her stairs following Social History Household Members significant other,family, children Living Arrangements RV Number of Floors (Floors) Two Floors Additional Social History Comment pt lives at home in [place] with her M2 PT-IP Current Condition Start: 12/09/19 10:01 Freq: NEEDED Status: Active Protocol: Document 12/09/19 10:02 [facility] (Rec: 12/09/19 10:39 [facility] [id number]) Physical Therapy Current Condition Current Condition Evaluation Date 12/09/19 Weight Bearing Status Weight Bearing Status Full Weight Bearing M3 PT-IP Subjective Start: 12/09/19 10:01 Freq: NEEDED Status: Active Protocol: Document 12/09/19 10:02 [facility] (Rec: 12/09/19 10:39 [facility] [id number]) Subjective Physical Therapy Visit Type Type Initial Evaluation Visit Start Time 09:40 Visit Stop Time 10:00 Total Visit Minutes 20 Notes pt's was present in the room for evaluation Physical Therapy Visit Comments Patient Comments Ewa is sitting up in bed with her rubbing her back when I walked in the room , she notes she had gotten up a few times to use the bathroom. She was able to have a conversation with me regarding her house and if she had any safety concerns about returing home. She reported often feeling dizzy when showering and that following showers she has difficulty making it up the stairs to her room. She denies using any assistive devices and her states that he often steadies her with gait. She agrees to PT this am Patient Goals Goals include returning home with her M4 PT-IP Mobility and Gait Start: 12/09/19 10:01 Freq: NEEDED Status: Active Protocol: Document 12/09/19 10:02 [facility] (Rec: 12/09/19 10:39 [facility] [id number]) PT-Bed Mobility Assessment Rolling Type of Rolling Bilateral Level of Assist Independent Supine to Sit Supine to Sit Independent Scooting Scooting to Edge of Bed Standby Assistance PT-Transfer Assessment Sit to and From Stand Sit to and from Stand Standby Assistance Equipment Transfer Assistive Device Gait Belt,Front Wheeled Walker Transfer Ability Level of Assist Contact Guard Assistance Comments Mobility Comments The patient was already sitting up in bed when PT started. She was able to transfer to sitting at the edge of the bed ind and sat to have a conversation with me. A gait belt was placed around her and she demonstrated SBA for sit-stand . No loss of balance was noted. The patient was given a FWW for ambulation and was CGA for ambulating out into the hallway. She walked approx 30 feet when she stopped and noted she was too dizzy to go on. A wheel chair was brought to her by RADIO DIRECTOR and she was wheeled back to her room. At that point she was max assist to transfer back to sitting at the edge of the bed and Max x 2 to transfer into bed. She was positioned on her right side. Nursing was present to help transfer her back to bed. Gait Assessment Gait Gait Assistance Required: Contact Guard Assist Distance (Feet) 30 Able to Maintain Weight Bearing Status Yes During Gait Assistive Devices Assistive Device Gait Belt,Front Wheeled Walker Gait Deviations General Gait Pattern Wide Based Gait Comments Gait Comments Pt became dizzy quickly with gait after 30 feet and needed a wheelchair to return back to her room. She became lethargic as if she was going to pass out and was held up by PT with gait belt while clinical nursing intern brought a wheel chair. Pt was safely transferred to the wheel chair and then transferred back to bed. PT-Balance Assessment Sitting Balance and Reactions Static Sitting Balance Ability Good Dynamic Sitting Balance Ability Good Comments Other Balance Tests/Deviations/Treatment Balance was initially good in : standing and pt was SBA only, dizziness came on quickly and then pt was not able to balance on her own M5 PT-IP Objective Assessments Start: 12/09/19 10:01 Freq: NEEDED Status: Active Protocol: Document 12/09/19 10:02 [facility] (Rec: 12/09/19 10:39 [facility] [id number]) Orientation Orientation/Cognition Level of Alertness Alert Orientation Name,Age,Situation Language Function Ability No Deficits Noted Gross Range of Motion Upper Extremity ROM Assessment Within Functional Limits Lower Extremity ROM Assessment Within Functional Limits Strength Upper Extremity Strength Assessment Within Functional Limits Lower Extremity Strength Assessment Within Functional Limits M7 PT-IP Assessment and Plan Start: 12/09/19 10:01 Freq: NEEDED Status: Active Protocol: Document 12/09/19 10:02 [facility] (Rec: 12/09/19 10:39 [facility] [id number]) PT Summary Assessment and Plan Potential Rehabilitation Potential Fair Status of Condition at Evaluation Unstable Summary Impairments Balance,Gait,Activity Tolerance Assessment Summary The patient is a 44 year old female who presented to the ER with sudden onset dizziness that began 12/06/19. She was admitted with tubular neuritis and severe vertigo. MRI is negative for stroke. She was improved this am and was sitting up in bed when PT entered the room. Her was giving her a back rub and she was long sitting in bed. She noted she was a little better this am and had been able to ambulate to the bathroom a few times. She been able to eat a small amount. She agreed to PT and was able to sit at the edge of the bed with IND. She sat at the edge of the bed without any c/o increased symptoms. A gait belt was placed around her and she was given a fww. She transfered from sit-stand with SBA and no increased c/o symptoms. She agreed to ambulation with the fww and her also came along. At 30 feet she suddenly became dizzy and went limp. I was able to support her with a gait belt. insurance sales assistant brought a wheel chair quickly and she was safely transferred to the chair. She then needed max assist to return to bed. As mentioned able pt had stated she does not use a assistive device however her notes he often supports her with gait. Further assessment is needed to determine safe return to home. Goals Bed Mobility Goal Independent Transfer Goal Independent Gait Goal Standby Assistance Gait Distance 100 feet Days to Meet Goals 5 Frequency of Treatment Frequency Of Treatment Twice a Day Treatment Plan Physical Therapy Treatment Plan Gait Training,Balance Retraining Other Recommendations and Next Treatment continue to assess balance and Focus gait Discharge Recommendations Other Discharge Recommendations further assessment needed, I did talk with patient about use of a fww for home as well as a shower chair as she had noted she often becomes dizzy in the shower. Per patient and her there is no room in their shower for a bench.
--- NOTE | 2019-12-09 10:46 | P.DS_ITS ---
History of Present Illness History of Present Illness Chief complaint: Dizzy Spells, Nausea, Vomitting Narrative: Ms. Ewa Gross is a 44-year-old female with a past medical history significant for type 2 diabetes with poor control, hypertension, mild persistent asthma, fibromyalgia and bipolar 1 disorder who presents to the ER with severe dizziness. The patient presents to the ER with her significant other following abrupt onset of dizziness 2 evenings ago quickly followed by nausea and vomiting. Her symptoms have remained persistent and incapacitating. Her symptoms are made worse by opening her eyes or moving. Nothing seems to make her symptoms better. She has had prior episodes of dizziness the they have been short in duration and not requiring treatment. She reports no recent illn ess with no fevers and chills, no complaints of nasal congestion or sore throat. She does endorse a generalized headache she attributes to her vomiting. Denies complaints of ear or neck pain. She has no chest pain or palpitations. She reports no shortness of breath and has a history of asthma for which she uses albuterol and Flovent on as needed basis her last use over a week ago. Denies cough or wheezing. She has abdominal wall pain from vomiting. She endorses constipation and will use MiraLax as needed, her last bowel movement was yesterday. She reports urinary frequency but denies urgency burning or hematuria. Her last menstrual period was 1 week ago. She reports ankle swelling by the end of the day when working. Upon arrival to the ER the patient is afebrile with temperature of 98.2?, tachycardic at 114, blood pressure of 145 over 99, respirations of 18 saturating 97% on room air. A CT of the head was obtained which finds no acute inter cranial pathology. MR stroke was obtained finding no acute stroke or hemorrhage, angiogram was unremarkable, medial deviation of the right internal carotid artery behind the pharynx is noted without stenosis. Twelve lead EKG finds sinus tach at 106 without ectopy or block, no ischemic changes or infarct. On laboratory analysis she has white count of 12.3, hemoglobin of 13.6, hematocrit of 40.0 and platelets of 348. Her PT is 11.3 with an INR of 1.0 and PTT of 29. Her sodium is 143 and potassium is 4.8. She has a BUN of 16 and creatinine 0.59 her nonfasting glucose is 359. Her liver functions are all within normal limits with a lipase of 20 in an albumin of 4.0. Her total CK is 43 and her troponin is negative at less than 0.012. In the ER the patient received multiple medications for nausea including meclizine 25 mg, Valium 2 mg x 2, Benadryl 50 mg x 1, Zofran 4 mg and later 8 mg as well as normal saline bolus. The patient is admitted to the medicine team with vestibular neuritis with intractable nausea vomiting. Discharge Providers Provider Date of admission: 12/08/19 23:04 Discharge Date: 12/09/19 Primary care physician: Eva Cadena PA-C Consults: 12/08/19 23:37 Consult to Discharge Planning Routine Comment: 12/09/19 01:07 Consult to Physical Therapy Evaluate & Treat Comment: Vestibular evaluation. Physician Instructions: Evaluate and Treat 12/09/19 01:57 Consult to WASH TUB MACHINE OPERATOR - Tool Maintenance Worker Routine Comment: Assist patient with medication access to insulin Discharge provider: Fabian Donahue MD Summary Hospital Course Discharge Diagnosis: 1. Vestibular neuritis 2. Intractable nausea and vomiting 3. Type 2 diabetes, uncontrolled with hyperglycemia 4. Essential hypertension 5. Mild persistent asthma 6. Bipolar 1 disorder, history of Hospital Course: This is a 44-year-old female patient with history of diabetes, hypertension and asthma who experienced an acute onset of vertigo 2 days ago that has persisted with intractable nausea and vomiting since. 1. Vestibular neuritis, acute, present on admission, active, improving -upon arrival to the ER the patient was unable open eyes without vomiting describes room is spinning to the left. -both CT of the head and MR stroke protocol find no acute intracranial pathology. -in the ER the patient received Valium 2 mg x 2, meclizine 25 mg and methylprednisolone 125 mg with improvement but not resolution of symptoms. -patient with modest improvement to where she can discharge home on prednisone taper, meclizine and ondansetron as needed -she is instructed to see ENT if symptoms are not improving over the next 3-4 days although she may have some degree of symptoms for the next few weeks 2. Acute nausea vomiting secondary to severe vertigo, present on admission, resolved -patient able to tolerate breakfast prior to discharge 3. Diabetes type 2 uncontrolled with hyperglycemia, present on admission, active -The patient has a history of markedly elevated blood sugars and has been previously on insulin therapy but could not afford the medication. The patient is currently taking glimepiride 4 mg daily. -blood sugar on admission labs is 359, urine has 3+ glucose and 2+ protein. -hemoglobin A1c 13.0 -agrees to discharge on insulin NPH vial 20 units subcu b.i.d. which can be obtained OTC if insurance does not cover it 4. Essential hypertension, chronic, present on admission, stable. -continue home regimen of lisinopril 5. Mild persistent asthma, chronic, stable 6. Bipolar 1 disorder, chronic, stable. -she takes no routine psychotropic medication. Status at Discharge Cognitive/behavioral status at discharge: oriented Functional status at discharge: independent ambulation Overall status at discharge: patient is progressing back to baseline Time Spent with Patient Time spent: Less than 30 minutes Exam Vital Signs (past 8 hours): - 12/09/19 03:38 12/09/19 07:35 12/09/19 08:00 Temperature 97.4 F L 98.2 F Pulse Rate 106 H 101 H Respiratory Rate 18 16 Blood Pressure 140/81 137/74 Pulse Oximetry 99 96 99 Oxygen Delivery Method Room Air Oxygen Flow Rate 0 Objective Labs Result Diagrams: 12/09/19 06:30 12/09/19 06:30 Labs: Laboratory Results - last 24 hr 12/08/19 12/08/19 12/08/19 16:15 16:15 16:15 WBC 12.3 H RBC 4.47 Hgb 13.6 Hct 40.0 MCV 89.4 MCH 30.4 MCHC 34.0 RDW 12.9 Plt Count 348 Neut % (Auto) 76.0 H Lymph % (Auto) 18.1 L Leslie % (Auto) 4.6 Eos % (Auto) 0.2 L Baso % (Auto) 1.1 Neut # (Auto) 9300 H Lymph # (Auto) 2200 Leslie # (Auto) 600 Eos # (Auto) 0 Baso # (Auto) 100 PT 11.3 INR 1.0 APTT 29 D Sodium 134 L Potassium 4.8 Chloride 102 Carbon Dioxide 19 L BUN 16 Creatinine 0.59 Estimated GFR > 60.0 BUN/Creatinine Ratio 27.1 H Glucose 359 H Hemoglobin A1c Calcium 9.3 Magnesium Total Bilirubin 0.5 AST 28 ALT 26 Alkaline Phosphatase 123 Total Creatine Kinase 43 CK-MB (CK-2) TNP CK-MB (CK-2) Rel Index TNP Troponin I < 0.012 Total Protein 7.0 Albumin 4.0 Globulin 3.0 Albumin/Globulin Ratio 1.3 Lipase 20 L Serum , Qual Urine Color Urine Appearance Urine pH Ur Specific [place] Urine Protein Urine Glucose (UA) Urine Ketones Urine Occult Blood Urine Nitrate Urine Bilirubin Urine Urobilinogen Ur Leukocyte Esterase Urine RBC Urine WBC Ur Squamous Epith Cells Urine Bacteria Urine Yeast Ur Culture Indicated? COVID-19 PCR 12/08/19 12/08/19 12/08/19 16:15 16:15 23:21 WBC RBC Hgb Hct MCV MCH MCHC RDW Plt Count Neut % (Auto) Lymph % (Auto) Leslie % (Auto) Eos % (Auto) Baso % (Auto) Neut # (Auto) Lymph # (Auto) Leslie # (Auto) Eos # (Auto) Baso # (Auto) PT INR APTT Sodium Potassium Chloride Carbon Dioxide BUN Creatinine Estimated GFR BUN/Creatinine Ratio Glucose Hemoglobin A1c Calcium Magnesium 1.9 Total Bilirubin AST ALT Alkaline Phosphatase Total Creatine Kinase CK-MB (CK-2) CK-MB (CK-2) Rel Index Troponin I Total Protein Albumin Globulin Albumin/Globulin Ratio Lipase Serum , Qual Negative Urine Color Urine Appearance Urine pH Ur Specific [place] Urine Protein Urine Glucose (UA) Urine Ketones Urine Occult Blood Urine Nitrate Urine Bilirubin Urine Urobilinogen Ur Leukocyte Esterase Urine RBC Urine WBC Ur Squamous Epith Cells Urine Bacteria Urine Yeast Ur Culture Indicated? COVID-19 PCR Negative 12/09/19 12/09/19 12/09/19 00:15 06:30 06:30 WBC 16.9 H RBC 4.09 Hgb 12.1 Hct 37.0 MCV 90.5 MCH 29.6 MCHC 32.8 RDW 12.8 Plt Count 352 Neut % (Auto) 86.8 H Lymph % (Auto) 10.6 L Leslie % (Auto) 1.9 L Eos % (Auto) 0.0 L Baso % (Auto) 0.7 Neut # (Auto) 49999 H Lymph # (Auto) 1800 Leslie # (Auto) 300 Eos # (Auto) 0 Baso # (Auto) 100 PT INR APTT Sodium 132 L Potassium 4.4 Chloride 106 Carbon Dioxide 17 L BUN 20 H Creatinine 0.68 Estimated GFR > 60.0 BUN/Creatinine Ratio 29.4 H Glucose 320 H Hemoglobin A1c Calcium 8.5 Magnesium Total Bilirubin AST ALT Alkaline Phosphatase Total Creatine Kinase CK-MB (CK-2) CK-MB (CK-2) Rel Index Troponin I Total Protein Albumin Globulin Albumin/Globulin Ratio Lipase Serum , Qual Urine Color Yellow Urine Appearance Slightly cloudy Urine pH 6.0 Ur Specific [place] 1.020 Urine Protein 2+ H Urine Glucose (UA) 3+ H Urine Ketones 2+ H Urine Occult Blood 1+ H Urine Nitrate Negative Urine Bilirubin Negative Urine Urobilinogen 0.2 Ur Leukocyte Esterase Negative Urine RBC 5-10/hpf H Urine WBC 1-5/hpf Ur Squamous Epith Cells 1-5 /hpf Urine Bacteria Many (>30) H Urine Yeast >100/hpf Ur Culture Indicated? Specimen cultured COVID-19 PCR 12/09/19 06:30 WBC RBC Hgb Hct MCV MCH MCHC RDW Plt Count Neut % (Auto) Lymph % (Auto) Leslie % (Auto) Eos % (Auto) Baso % (Auto) Neut # (Auto) Lymph # (Auto) Leslie # (Auto) Eos # (Auto) Baso # (Auto) PT INR APTT Sodium Potassium Chloride Carbon Dioxide BUN Creatinine Estimated GFR BUN/Creatinine Ratio Glucose Hemoglobin A1c 13.0 H Calcium Magnesium Total Bilirubin AST ALT Alkaline Phosphatase Total Creatine Kinase CK-MB (CK-2) CK-MB (CK-2) Rel Index Troponin I Total Protein Albumin Globulin Albumin/Globulin Ratio Lipase Serum , Qual Urine Color Urine Appearance Urine pH Ur Specific [place] Urine Protein Urine Glucose (UA) Urine Ketones Urine Occult Blood Urine Nitrate Urine Bilirubin Urine Urobilinogen Ur Leukocyte Esterase Urine RBC Urine WBC Ur Squamous Epith Cells Urine Bacteria Urine Yeast Ur Culture Indicated? COVID-19 PCR Discharge Plan Discharge Plan Patient Disposition: Home Discharge orders & Medications Prescriptions: New prednisone 10 mg tablet See Rx Instructions .ROUTE .COMPLEX Qty: 27 RF: 0 meclizine 25 mg tablet 25 mg PO TID PRN (Reason: dizziness) Qty: 30 RF: 0 ondansetron 8 mg tablet,disintegrating 8 mg PO Q8H PRN (Reason: nausea and vomiting) Qty: 20 RF: 0 insulin NPH isoph U-100 human 100 unit/mL suspension 20 unit SUBCUT BID Qty: 10 RF: 0 (DME) insulin syringe-needle U-100 [BD Insulin Syringe Ultra-Fine] 1 mL 31 gauge x 5/16 syringe See Rx Instructions .ROUTE .MEDSUPPLY Qty: 100 RF: 0 Continued lisinopril 20 mg tablet 20 mg PO BID RF: 0 glimepiride 4 mg tablet 4 mg PO DAILY RF: 0 albuterol sulfate 90 mcg/actuation Hfa Aerosol Inhaler 2 puff INHALATION Q4-6H PRN (Reason: Shortness Of Breath Or Wheezing) RF: 0 Flovent HFA 110 mcg/actuation Hfa Aerosol Inhaler 1 puff INHALATION BID PRN (Reason: Shortness Of Breath Or Wheezing) RF: 0 cyclobenzaprine 10 mg tablet 10 mg PO TID PRN (Reason: Muscle Spasm) RF: 0 Follow up/Referrals: Eva Cadena PA-C [Primary Care Provider] - (PLEASE CALL DR. CADENA'S OFFICE TO SCHEDULE YOUR FOLLOW UP APPOINTMENT.) Visit Report/Discharge Packet Instructions: DI for Vertigo, How to Prevent Falls Visit Report Forms: Patient Portal/API, Stroke Signs & Symptoms Discharge Data Primary Care Provider: Eva Cadena Attending Provider: Godfrey Rodriguez Admeloisa Date/Time: 12/08/19 23:04
[2019-12-09 12:00] VITALS: BP 131/73; PULSE 93; RESP 16; TEMP 36.3; O2SAT 97
--- NOTE | 2019-12-09 12:54 | PC.NURSE ---
Discharge instructions, medications, and home care handouts reviewed with patient and her significant other, they state understanding and have no further questions or concerns at this time. IV removed intact. Patient escorted out via wheelchair with all belongings by SET UP AND CHARGER. Patient will call on Wednesday to schedule her follow up appointment.
--- NOTE | 2019-12-09 16:00 | CM.DPNOTE ---
INTERVENTIONAL PHYSIATRIST Note INTERVENTIONAL PHYSIATRIST consult received on this 44 yo female, PMH includes type II diabetes, presents to the ED with dizziness. INTERVENTIONAL PHYSIATRIST consult request states assist w/obtaining insulin. Spoke w/ Dr Donahue who explains the issue of getting insurance coverage for patient's medication is being worked on extensively by patient and her PCP office, Dr Donahue feels patient has no needs this INTERVENTIONAL PHYSIATRIST can address today and patient will return home w/her bf. Met w/patient and her bf introduced role and reviewed DCP. Patient agrees that she has no needs from this INTERVENTIONAL PHYSIATRIST but admits it has been a struggle to get the correct medication and she feels exhausted by it. Bf able to be present w/patient over the w/e to assist as needed, assist w/med management. Home with no INTERVENTIONAL PHYSIATRIST needs as expected JW
== END 2019-12-09 13:00 | disposition home or self-care (01) ==
LOC: ED 22:55 → AC 23:06
PROVIDERS: Emergency Medicine; Admitting Provider Nurse Practitioner Adult Health; Emergency Provider Emergency Medicine; PCP Physician Assistant Medical; Visit Provider Nurse Practitioner Adult Health
DX: H81.20 Vestibular neuronitis, unspecified ear (principal); R11.2 Nausea with vomiting, unspecified; R19.7 Diarrhea, unspecified; I10 Essential (primary) hypertension; J45.909 Unspecified asthma, uncomplicated; M79.7 Fibromyalgia; F31.9 Bipolar disorder, unspecified; E11.65 Type 2 diabetes mellitus with hyperglycemia; Z79.4 Long term (current) use of insulin; Z11.59 Encounter for screening for other viral diseases
CPT/HCPCS: 36415; 70450; 70548; 70553; 71045; 80048; 80053; 81001; 82550; 82962; 83036; 83690; 83735; 84484; 84703; 85025; 85610; 85730; 87086; 87635; 93005; 93010; 94762; 96361; 96365; 96372; 96375; 96376; 97161; 99285; G0378; A9579; C9113; J1200; J1644; J2060; J2405; J2930; J3360

== ENCOUNTER 2019-12-20 17:07 | Observation (INO) | payer BC, SELFPAY ==
[2019-12-20 17:15] VITALS: BP 133/58; PULSE 124; RESP 16; TEMP 36.5; O2SAT 99; BMI 36.0
[2019-12-20 20:12] VITALS: BP 122/74; PULSE 105; RESP 17; O2SAT 100
--- NOTE | 2019-12-20 21:13 | ED.DIZZY ---
HPI - Dizziness General Chief Complaint: Dizziness Stated Complaint: vertigo Time Seen by Provider: 12/20/19 21:12 Source: patient Mode of arrival: Wheelchair History of Present Illness HPI Narrative: 44-year-old woman with a history of poorly controlled type 2 diabetes, hyperlipidemia, mild persistent asthma, fibromyalgia, bipolar type 1 seen on December 07 with similar symptoms and diagnosed with vestibular neuritis. CT and MRI did not show acute stroke. She was admitted overnight with steroids Valium and fluid hydration. Discharged home the next day with a steroid taper, started insulin, oral meclizine and oral ondansetron. She states that since going home she has continued to have significant vertigo can get out of bed and vomits anything that she is eating including all of her medication. She is utterly miserable and comes back for further evaluation. Related Data Home Medications Medication Instructions Recorded Confirmed Flovent HFA 1 puff INHALATION BID PRN 12/09/19 12/09/19 albuterol sulfate 2 puff INHALATION Q4-6H PRN 12/09/19 12/09/19 cyclobenzaprine 10 mg PO TID PRN 12/09/19 12/09/19 glimepiride 4 mg PO DAILY 12/09/19 12/09/19 lisinopril 20 mg PO BID 12/09/19 12/09/19 Previous Rx's Medication Instructions Recorded insulin NPH isoph U-100 human 20 unit SUBCUT BID #10 ml 12/09/19 insulin syringe-needle U-100 [BD #100 each 12/09/19 Insulin Syringe Ultra-Fine] meclizine 25 mg PO TID PRN #30 tab 12/09/19 ondansetron 8 mg PO Q8H PRN #20 tab 12/09/19 prednisone See Rx Instructions .ROUTE 12/09/19 .COMPLEX #27 tab Allergies Allergy/AdvReac Type Severity Reaction Status Date / Time Iodine and Iodide Containing Allergy Hives Verified 12/20/19 17:15 Produc latex Allergy Rash Verified 12/20/19 17:15 Penicillins Allergy Anaphylaxis Verified 12/20/19 17:15 hydromorphone [From Dilaudid] AdvReac Nausea Verified 12/20/19 17:15 Review of Systems Review of Systems Narrative: Pertinent positive and negative findings as per HPI Remainder of review of systems is otherwise unremarkable for Constitutional: Fevers, chills, ENT: No sore throat, neck pain, ear pain CV: Chest pain, palpitations, dyspnea on exertion Respiratory: Cough, wheeze, dyspnea : Dysuria, hematuria, flank pain Skin: Rashes, nonhealing lesions Patient History Medical History Acute vestibular neuritis (Acute) Asthma (Acute) Bipolar 1 disorder (Acute) Colon polyps (Acute) Fibromyalgia (Acute) Hypertension (Acute) Type 2 diabetes mellitus (Acute) Surgical History History of colonoscopy (Acute) Family History Father Hypertension Bipolar disorder Mother Cancer Diabetes mellitus Daughter No significant medical problems Social History household members: significant other, family and children Smoking Status: Former smoker alcohol intake: current Smoking Status: Former smoker alcohol intake frequency: 0-2 drinks per day Substance Use Type: marijuana Exam Narrative Exam Narrative: General: Lying on her side with eyes closed as cooperative as she is able to be but unable to elaborate on history details HEENT: Moist mucous membranes, normal sclera with reactive pupils, mild rotatory nystagmus with significant leftward gaze Neck: supple Respiratory: Lungs are clear to auscultation, no wheezing no rales no rhonchi. Full and symmetrical air movement Cardiac: Regular rate and rhythm no murmurs no bruits Abdomen: Soft nontender good bowel tones, no flank pain Skin: Warm and dry, no rashes Neurologic: Grossly neurologically intact aside from noted nystagmus with no obvious asymmetries or abnormalities Extremities: No trauma, well perfused Initial Vital Signs Initial Vital Signs: Vital Signs Temperature 97.7 F 12/20/19 17:15 Pulse Rate 124 H 12/20/19 17:15 Respiratory Rate 16 12/20/19 17:15 Blood Pressure 133/58 L 12/20/19 17:15 Pulse Oximetry 99 12/20/19 17:15 Course Orders Ordered: ED Orders 12/20/19 21:40 Complete Blood Count AUTO DIFF Stat Comprehensive Metabolic Panel Stat Discontinued Medications Diazepam (Valium) 2 mg IV NOW ONE Stop: 12/20/19 21:25 Last Admin: 12/20/19 21:36 Dose: 2 mg Documented by: NANCIE Sodium Chloride (Normal Saline 0.9%) 1,000 mls @ 1,000 mls/hr IV BOLUS ONE Stop: 12/20/19 22:23 Last Infusion: 12/20/19 22:24 Dose: 0 mls/hr Documented by: Admin: 12/20/19 21:36 Dose: 1,000 mls/hr Documented by: NANCIE Ondansetron HCl (Zofran) 4 mg IV NOW ONE Stop: 12/20/19 21:25 Last Admin: 12/20/19 21:36 Dose: 4 mg Documented by: NANCIE Prochlorperazine (Compazine) 10 mg IV NOW ONE Stop: 12/20/19 21:25 Last Admin: 12/20/19 21:36 Dose: 10 mg Documented by: NANCIE Vital Signs Vital signs: Vital Signs - 8 hr 12/20/19 17:15 12/20/19 20:12 12/20/19 23:30 Temperature 97.7 F Pulse Rate 124 H 105 H 99 H Respiratory Rate 16 17 15 Blood Pressure 133/58 L 122/74 126/73 Pulse Oximetry 99 100 99 MDM - Dizziness Lab Data Result diagrams: 12/20/19 21:40 12/20/19 21:40 Labs: Lab Results 12/20/19 12/20/19 Range/Units 21:40 21:40 WBC 15.8 H (4.5-11.0) X10^3/uL RBC 4.33 (4.0-5.2) X10^6/uL Hgb 13.2 (12.0-16.0) g/dL Hct 39.3 (36-46) % MCV 90.7 (80-100) fL MCH 30.4 (26-34) PG MCHC 33.5 (30-36) % RDW 12.7 (11.6-14.8) % Plt Count 304 (150-400) X10^3/uL Neut % (Auto) 73.3 (50-75) % Lymph % (Auto) 18.2 L (25-40) % [place] % (Auto) 6.8 (3-14) % Eos % (Auto) 0.8 L (2-4) % Baso % (Auto) 0.9 (0-2) % Neut # (Auto) 79213 H (9584-0644) /uL Lymph # (Auto) 2900 (3418-0298) /uL [place] # (Auto) 1100 H (0-900) /uL Eos # (Auto) 100 (0-450) /uL Baso # (Auto) 100 (0-100) /uL Sodium 132 L (137-145) mmol/L Potassium 4.0 (3.4-5.1) mmol/L Chloride 99 (98-107) mmol/L Carbon Dioxide 24 (22-32) mmol/L BUN 26 H (7-17) mg/dL Creatinine 1.93 H (0.52-1.04) mg/dL Estimated GFR 28.5 L (>60) mL/min BUN/Creatinine Ratio 13.5 (6-22) Glucose 273 H (70-100) mg/dL Calcium 8.7 (8.4-10.2) mg/dL Total Bilirubin 0.5 (0.2-1.3) mg/dL AST 19 (14-36) IU/L ALT 19 (<35) IU/L Alkaline Phosphatase 125 (38-126) U/L Total Protein 6.7 (6.3-8.2) g/dL Albumin 3.6 (3.5-5.0) g/dL Globulin 3.1 (1.7-4.1) g/dL Albumin/Globulin Ratio 1.2 (1.0-2.8) MDM Narrative Medical decision making narrative: 44-year-old woman with acute vestibular neuritis and vertigo unable to eat and drink due to the nausea from the vertigo. She has been vomiting so much that over the last 10 days her creatinine has jumped from 0.68-1.93. She will need to be admitted for hydration for acute renal insufficiency secondary to dehydration as well as more aggressive management of her vertigo symptoms. There is no evidence for infection or other neurologic pathology at this time. Case is reviewed with Jatinder Alvarenga, hospitalist nurse-practitioner will accept the patient for admission. Discharge Plan Departure Patient Disposition: Admitted as Observation Clinical Impression: Acute vestibular neuritis Qualifiers: Laterality: unspecified laterality Qualified Code(s): H81.20 - Vestibular neuronitis, unspecified ear Acute renal failure Qualifiers: Acute renal failure type: unspecified Qualified Code(s): N17.9 - Acute kidney failure, unspecified Intractable vomiting Qualifiers: Vomiting type: unspecified Nausea presence: with nausea Qualified Code(s): R11.2 - Nausea with vomiting, unspecified Admit Date/Time: 12/21/19 00:16 Admit Provider: Briana Alvarenga
[2019-12-20] MEDS: PROCHLORPERAZINE 10 MG/2 ML VIAL IV (21:36)
[2019-12-20] MEDS: diazePAM 10 MG/2 ML SYRINGE 2 MG IV (21:36)
[2019-12-20] MEDS: ONDANSETRON 4 MG/2 ML INJ IV (21:36)
[2019-12-20] MEDS: SODIUM CHLORIDE 0.9% 1,000 ML 1000 ML IV (21:36)
[2019-12-20 21:52] LABS: Add Manual Diff / Slide Review NO; Basophils Absolute Auto 100 /uL (0-100); Basophils Percent Auto 0.9 % (0-2); Eosinophils Absolute Auto 100 /uL (0-450); Eosinophils Percent Auto 0.8 % (2-4); Hematocrit 39.3 % (36-46); Hemoglobin 13.2 g/dL (12.0-16.0); Lymphocytes Absolute Auto 2900 /uL (1100-4500); Lymphocytes Percent Auto 18.2 % (25-40); Mean Corpuscular HGB Conc 33.5 % (30-36); Mean Corpuscular Hemoglobin 30.4 PG (26-34); Mean Corpuscular Volume 90.7 fL (80-100); Monocytes Absolute Auto 1100 /uL (0-900); Monocytes Percent Auto 6.8 % (3-14); Neutrophils Absolute Auto 11600 /uL (1500-7000); Neutrophils Percent Auto 73.3 % (50-75); Platelet Count 304 X10^3/uL (150-400); Red Blood Cell Count 4.33 X10^6/uL (4.0-5.2); Red Cell Distribution Width 12.7 % (11.6-14.8); White Blood Cell Count 15.8 X10^3/uL (4.5-11.0)
[2019-12-20 22:08] LABS: Alanine Aminotransferase 19 IU/L (<35); Albumin 3.6 g/dL (3.5-5.0); Albumin Globulin Ratio 1.2 (1.0-2.8); Alkaline Phosphatase 125 U/L (38-126); Aspartate Aminotransferase 19 IU/L (14-36); BUN Creatinine Ratio 13.5 (6-22); Bilirubin Total 0.5 mg/dL (0.2-1.3); Blood Urea Nitrogen 26 mg/dL (7-17); Calcium 8.7 mg/dL (8.4-10.2); Carbon Dioxide 24 mmol/L (22-32); Chloride 99 mmol/L (98-107); Estimated Glomerular Filt Rate 28.5 mL/min (>60); Globulin 3.1 g/dL (1.7-4.1); Glucose 273 mg/dL (70-100); HEMOLYSIS < 15 (0-50); Sodium 132 mmol/L (137-145); Total Protein 6.7 g/dL (6.3-8.2)
[2019-12-20 23:30] VITALS: BP 126/73; PULSE 99; RESP 15; O2SAT 99
[2019-12-21 00:30] VITALS: BP 125/66; PULSE 101; RESP 17; O2SAT 99
[2019-12-21 01:05] VITALS: BP 135/72; PULSE 103; RESP 18; TEMP 36.8; O2SAT 99
[2019-12-21] MEDS: SODIUM CHLORIDE 0.45% 1,000 ML 100 ML IV (01:30)
[2019-12-21 01:32] VITALS: BMI 35.4
[2019-12-21 01:37] LABS: COVID19 -Nasal RAPID Negative (Negative)
[2019-12-21] MEDS: INSULIN ASPART 100 UNIT/ML INSULN PEN SUBCUT ×3 (01:51→13:37)
[2019-12-21] MEDS: ONDANSETRON 4 MG/2 ML INJ IV (02:05)
[2019-12-21] MEDS: MECLIZINE HCL 12.5 MG TABLET 25 MG PO ×2 (02:10→10:08)
[2019-12-21 02:18] LABS: Influenza A - CEPHEID Flu A NEGATIVE (NEGATIVE); Influenza B - CEPHEID Flu B NEGATIVE (NEGATIVE)
--- NOTE | 2019-12-21 02:24 | PC.ADMIT ---
Addendum entered by Danna Santos R.N. 12/21/19 06:09: Denies nausea this morning so given ice chips and will order clear liquids for breakfast. Still complains of dizziness Addendum entered by Danna Santos R.N. 12/21/19 05:52: Correction of previous documentation: earlier voided only 50cc not 100cc. Original Note: Patient admitted to room 217 per stretcher from ER. Patient very drowsy and keeps eyes closed throughout assessment. Significant other, Brian, helped to provide answers to assessment questions. Patient came in to ER due to intractable nausea/vomiting and dizziness. States she has not been able to keep anything down for several days. Describes a ringing/whoosing sound in left ear. Breath sounds CTA with RA sat of 98%; placed on continuous oximetry. HRR but tachy in low 100's. Complains of continued nausea but without emesis and medicated with Zofran. BT hypoactive; abdomen is soft and non tender. States she has not had much for urinary output and describes some burning with urination. Up to BSC with 1 assist and voided 100cc with PVR of 11cc on bladder scan. No open, red or rash areas noted. Bilateral calf SCD's applied. CBG was 190 and SS coverage administered per order. Fall risk score is moderate; bed alarm is activated. Significant other instructed to bring in list of patient home meds as neither knew dosages. Oriented to call light and bed controls. [address] [facility] Admission Note: The patient,Ewa Gross,44 y/o, was given written information regarding hospital policies, unit procedures and contact persons. Patient's smoking status: Current every day smoker. Vital Signs - 8 hr 12/20/19 20:12 12/20/19 23:30 12/21/19 00:30 Temperature Pulse Rate 105 H 99 H 101 H Respiratory Rate 17 15 17 Blood Pressure 122/74 126/73 125/66 Pulse Oximetry 100 99 99 12/21/19 01:05 Temperature 98.2 F Pulse Rate 103 H Respiratory Rate 18 Blood Pressure 135/72 Pulse Oximetry 99
[2019-12-21 02:26] LABS: Appearance Urine UA SL CLOUDY; Color Urine UA YELLOW; Glucose Urine UA 1+ g/dL (Negative); Ketones Urine UA TRACE (NEGATIVE); Leukocyte Esterase Urine UA TRACE (NEGATIVE); Nitrite Urine UA NEGATIVE (Negative); Occult Blood Urine UA 1+ (Negative); Protein Urine UA 2+ (Negative); Specific Gravity Urine UA >=1.030 (1.000-1.035); Urobilinogen Urine UA 0.2 E.U./dL (0.2)
[2019-12-21 02:42] LABS: RBC Urine 5-10/HPF (0-5/HPF); WBC Urine 1-5/HPF (0-5/HPF)
[2019-12-21 02:43] LABS: Amorphous Sediment Urine 1+; Bacteria Urine Moderate (10-30); Squamous Epithelial Cell Urine 5-10 /HPF (0-5/HPF)
[2019-12-21 02:46] LABS: Ictotest Urine Negative (Negative)
[2019-12-21 02:47] LABS: Bilirubin Urine UA 1+ (NEGATIVE); Culture Indicated Urine Cult Not Indicated
--- NOTE | 2019-12-21 04:26 | P.HP_ITS ---
History of Present Illness History of Present Illness Date Patient Seen: 12/21/19 Time Patient Seen: 02:00 Chief complaint: vertigo Narrative: Ms. Ewa Gross is a 44-year-old female with a past medical history significant for type 2 diabetes with poor control, hypertension, mild persistent asthma, fibromyalgia and bipolar 1 disorder discharged on December 08 for severe dizziness associated with acute vestibular neuritis. The patient is providing much of the history. When she was discharged she improved over 2 days and had been taking a prednisone taper which she completed yesterday. And then after 2 days she started to decline again having incapacitating dizzy spells, nausea and vomiting. Her symptoms have remained persistent and incapacitating. Her symptoms are made worse by opening her eyes or moving. Nothing seems to make her symptoms better. She has had prior episodes of dizziness the they have been short in duration and not requiring treatment. She reports no recent illness with no fevers and chills, no complaints of nasal congestion or sore throat. She continues to complain of a generalized headache she attributes to her vomiting. Denies complaints of ear or neck pain. Denies chest pain or palpitations, shortness of breath but has a history of asthma for which she uses albuterol and Flovent on as needed basis. Denies fever, chills, sweats, cough or wheezing. She has abdominal wall pain from vomiting. She endorses constipation and will use MiraLax as needed, her last bowel movement was yesterday. She reports urinary frequency and did endorse burning. In the ED, they morgan her labs and she does have a jump in her creatinine from a normal range to 1.9 likely caused by dehydration. Patient has it is reported that she has been unable to keep anything down. No imaging studies were done during this visit in the ED . Patient is afebrile with a temp of 98.2?, blood pressure 135/72, heart rate of 1 03, respiratory rate of 18, oxygen saturation of 99%, she weighs 102.5 kilos with a BMI of 35.4. WBC is 15.8 with a left shift, RBC 4.33, hemoglobin 13.2, hematocrit 39.3, platelet count 304, sodium 132, potassium 4.0, chloride 99, CO2 24, creatinine 1.93, BUN 26, GFR 28.5, glucose 273, calcium 8.7, liver enzymes are normal, she had moderate bacteria and yeast however, culture was not indicated, COVID-19 and flu was negative. Patient History Medical History Acute vestibular neuritis (Acute) Asthma (Acute) Bipolar 1 disorder (Acute) Colon polyps (Acute) Fibromyalgia (Acute) Hypertension (Acute) Type 2 diabetes mellitus (Acute) Surgical History History of colonoscopy (Acute) Family & Social History Family History Father Hypertension Bipolar disorder Mother Cancer Diabetes mellitus Daughter No significant medical problems Social History: household members significant other,family,children Prior Living Arrangements RV Safety & Behavioral: Feels Safe in Current Yes Environment Been Physically Hurt or No Threatened By a Person Suicidal Ideation Description None Tobacco & Substance use: Smoking Status Current every day smoker alcohol intake current alcohol intake frequency holiday/special occasion Substance Use Type marijuana Meds Home Medications and Allergies Home Medications Medication Instructions Recorded Confirmed Type Flovent HFA 1 puff INHALATION BID PRN 12/09/19 12/21/19 History albuterol sulfate 2 puff INHALATION Q4-6H PRN 12/09/19 12/21/19 History cyclobenzaprine 10 mg PO TID PRN 12/09/19 12/21/19 History glimepiride 4 mg PO DAILY 12/09/19 12/21/19 History insulin NPH isoph U-100 human 20 unit SUBCUT BID #10 ml 12/09/19 12/21/19 Rx insulin syringe-needle U-100 [BD #100 each 12/09/19 12/21/19 Rx Insulin Syringe Ultra-Fine] lisinopril 20 mg PO BID 12/09/19 12/21/19 History meclizine 25 mg PO TID PRN #30 tab 12/09/19 12/21/19 Rx ondansetron 8 mg PO Q8H PRN #20 tab 12/09/19 12/21/19 Rx Allergies Allergy/AdvReac Type Severity Reaction Status Date / Time Iodine and Iodide Containing Allergy Hives Verified 12/20/19 17:15 Produc latex Allergy Rash Verified 12/20/19 17:15 Penicillins Allergy Anaphylaxis Verified 12/20/19 17:15 hydromorphone [From Dilaudid] AdvReac Nausea Verified 12/20/19 17:15 Review of Systems Review of Systems ROS: Yes All systems reviewed with the patient and are negative except as otherwise documented Exam Vital Signs (past 8 hours): - 12/20/19 23:30 12/21/19 00:30 12/21/19 01:05 Temperature 98.2 F Pulse Rate 99 H 101 H 103 H Respiratory Rate 15 17 18 Blood Pressure 126/73 125/66 135/72 Pulse Oximetry 99 99 99 Oxygen Delivery Method Room Air Oxygen Flow Rate 0 Narrative Exam Narrative: Gen: Alert, oriented, obese 44 y.o. female, appears ill HEENT: normocephalic, atraumatic, conjunctiva clear, sclera non-icteric, oral mucosa pink and moist Neck: supple, full ROM, no JVD, trachea is midline Resp: Lungs CTA, non-labored breathing CV: RRR, no murmur or rubs Abd: soft, non-tender, normoactive BTs Skin: no lesions or rashes, dry and intact Neuro: Alert and oriented X 4 w/no focal deficits. Speech clear and coherent. Extremities: moves all 4 extremities, is ambulatory, negative Ronak?s sign Psyche: Flat affect. Objective Labs Result Diagrams: 12/20/19 21:40 12/20/19 21:40 Labs: Laboratory Results - last 24 hr 12/20/19 12/20/19 12/21/19 21:40 21:40 00:32 WBC 15.8 H RBC 4.33 Hgb 13.2 Hct 39.3 MCV 90.7 MCH 30.4 MCHC 33.5 RDW 12.7 Plt Count 304 Neut % (Auto) 73.3 Lymph % (Auto) 18.2 L [place] % (Auto) 6.8 Eos % (Auto) 0.8 L Baso % (Auto) 0.9 Neut # (Auto) 33107 H Lymph # (Auto) 2900 [place] # (Auto) 1100 H Eos # (Auto) 100 Baso # (Auto) 100 Sodium 132 L Potassium 4.0 Chloride 99 Carbon Dioxide 24 BUN 26 H Creatinine 1.93 H Estimated GFR 28.5 L BUN/Creatinine Ratio 13.5 Glucose 273 H Calcium 8.7 Total Bilirubin 0.5 AST 19 ALT 19 Alkaline Phosphatase 125 Total Protein 6.7 Albumin 3.6 Globulin 3.1 Albumin/Globulin Ratio 1.2 Urine Color Urine Appearance Urine pH Ur Specific [place] Urine Protein Urine Glucose (UA) Urine Ketones Urine Occult Blood Urine Nitrate Urine Bilirubin Ur Bilirubin Confirm Urine Urobilinogen Ur Leukocyte Esterase Urine RBC Urine WBC Ur Squamous Epith Cells Amorphous Sediment Urine Bacteria Urine Yeast Ur Culture Indicated? COVID-19 PCR Influenza A (RT-PCR) Flu a negative Influenza B (RT-PCR) Flu b negative 12/21/19 12/21/19 00:32 02:15 WBC RBC Hgb Hct MCV MCH MCHC RDW Plt Count Neut % (Auto) Lymph % (Auto) [place] % (Auto) Eos % (Auto) Baso % (Auto) Neut # (Auto) Lymph # (Auto) [place] # (Auto) Eos # (Auto) Baso # (Auto) Sodium Potassium Chloride Carbon Dioxide BUN Creatinine Estimated GFR BUN/Creatinine Ratio Glucose Calcium Total Bilirubin AST ALT Alkaline Phosphatase Total Protein Albumin Globulin Albumin/Globulin Ratio Urine Color Yellow Urine Appearance Sl cloudy Urine pH 5.0 Ur Specific [place] >=1.030 H Urine Protein 2+ H Urine Glucose (UA) 1+ H Urine Ketones Trace H Urine Occult Blood 1+ H Urine Nitrate Negative Urine Bilirubin 1+ H Ur Bilirubin Confirm Negative Urine Urobilinogen 0.2 Ur Leukocyte Esterase Trace H Urine RBC 5-10/hpf H Urine WBC 1-5/hpf Ur Squamous Epith Cells 5-10 /hpf H Amorphous Sediment 1+ Urine Bacteria Moderate (10-30) H Urine Yeast 10-30/hpf H Ur Culture Indicated? Cult not indicated COVID-19 PCR Negative Influenza A (RT-PCR) Influenza B (RT-PCR) Assessment & Plan Assessment & Plan narrative: Ewa Gross will be placed into observation for symptomatic control of her nausea and vomiting associated with acute vestibular neuritis Acute vestibular neuritis, present on admission -patient had completed a prednisone taper the day before admission and will receive a current dose of prednisone 60 mg in the morning -Zofran, IV Compazine for nausea and vomiting -patient did state that she takes oral THC buds however per her she has not had any THC for month and a half so it is unlikely this is a cyclical vomiting syndrome picture -recommend referral to Ear Nose and Throat prior to discharge. This was done at [facility] however they had not heard back from ENT. Acute kidney injury, present on admission with a creatinine of 1.93, and a GFR of 28 -patient had normal creatinines and a normal GFR prior to this admission -the patient will be hydrated with normal saline at 125 mL/hour. She did receive half-normal saline for several hours due to incorrect entry -monitor electrolytes daily Diabetes type 2 poorly controlled, present on admission -currently she is NPO advanced to clears in the morning -Q 6 hour glucose checks with medium correctional dosing -holding oral anti diabetics -it is unclear upon discharge whether she was able to obtain generic insulin Essential hypertension chronic, present on admission -due to her acute kidney injury of held her lisinopril and have administered metoprolol Leukocytosis unknown if acute, present on admission -WBC was 15.8, this may be elevated due to the patient taking steroids over the past week -continue monitoring for signs of infection, this does not appear to be the case at this point Consults: Recommend setting up patient with outpatient appointment with the ENT unless ENT can see her here in the hospital Patient is observation status as her stay is not likely to exceed 2 midnights. FEN: Normal saline at 125 mL/hour, NPO to clears this morning, BMP and magnesium in the am. VTE prophylaxis: Bilateral SCDs Dispo: Probable discharge home Code Status: as discussed with surrogate,
[2019-12-21 05:00] VITALS: BP 115/70; PULSE 103; RESP 18; TEMP 36.7; O2SAT 97
[2019-12-21] MEDS: SODIUM CHLORIDE 0.9% 1,000 ML 125 ML IV (05:41)
[2019-12-21 08:39] LABS: Add Manual Diff / Slide Review NO; Basophils Absolute Auto 0 /uL (0-100); Basophils Percent Auto 0.4 % (0-2); Eosinophils Absolute Auto 200 /uL (0-450); Eosinophils Percent Auto 1.4 % (2-4); Hematocrit 32.3 % (36-46); Lymphocytes Absolute Auto 3300 /uL (1100-4500); Mean Corpuscular HGB Conc 33.9 % (30-36); Mean Corpuscular Hemoglobin 30.4 PG (26-34); Mean Corpuscular Volume 89.8 fL (80-100); Monocytes Absolute Auto 1000 /uL (0-900); Monocytes Percent Auto 8.1 % (3-14); Neutrophils Absolute Auto 8100 /uL (1500-7000); Neutrophils Percent Auto 64.1 % (50-75); Platelet Count 265 X10^3/uL (150-400); Red Cell Distribution Width 12.6 % (11.6-14.8); White Blood Cell Count 12.7 X10^3/uL (4.5-11.0)
[2019-12-21 08:45] VITALS: BP 121/68
[2019-12-21] MEDS: METOPROLOL ER 25 MG TABLET 12.5 MG PO (08:45)
[2019-12-21 08:47] LABS: BUN Creatinine Ratio 20.3 (6-22); Blood Urea Nitrogen 26 mg/dL (7-17); Calcium 7.7 mg/dL (8.4-10.2); Carbon Dioxide 21 mmol/L (22-32); Chloride 106 mmol/L (98-107); Estimated Glomerular Filt Rate 45.7 mL/min (>60); Glucose 133 mg/dL (70-100); HEMOLYSIS < 15 (0-50); Magnesium 1.7 mg/dL (1.6-2.3); Potassium 3.5 mmol/L (3.4-5.1); Sodium 132 mmol/L (137-145)
[2019-12-21] MEDS: predniSONE 20 MG TABLET 60 MG PO (08:47)
[2019-12-21 09:00] VITALS: BP 121/68; PULSE 101; RESP 16; TEMP 37.7; O2SAT 96
[2019-12-21] MEDS: POTASSIUM CHLORIDE 40 MEQ in SODIUM CHLORIDE 0.9% 500 ML 130 ML IV (09:14)
[2019-12-21] MEDS: INSULIN NPH 100 UNIT/ML VIAL 20 UNIT SUBCUT (09:22)
[2019-12-21] MEDS: ACETAMINOPHEN 325 MG TABLET 650 MG PO (09:50)
[2019-12-21] MEDS: MAGNESIUM CHLORIDE 64 MG TABLET 128 MG PO (11:32)
[2019-12-21] MEDS: POTASSIUM CHLORIDE 20 MEQ TAB 40 MEQ PO (11:32)
--- NOTE | 2019-12-21 12:15 | OT.IP.TRT ---
Occupational Therapy Treatment Note M3 OT- IP Subjective and Pain Start: 12/21/19 12:48 Freq: Status: Active Protocol: Document 12/21/19 12:48 [facility] (Rec: 12/21/19 12:55 [facility] [id number]) OT- Subjective Occupational Therapy Visit Type Type Treatment Note Visit Start Time 12:05 Visit Stop Time 12:15 Total Visit Minutes 10 Notes Pt's in the room during OT treatment. Pt eating lunch and open to talking to OT regarding OT needs. Pt was here here in mid November and discharged on December 08 for similar complaints of nausea and dizziness. PT seth at the time had suggested her to get a FWW and shower chair. When asked about the prior safety suggestions,pt states would rather use her to assist to walk versus FWW and also did not look into getting a shower chair yet. M4 OT- IP ADL's Start: 12/21/19 12:48 Freq: Status: Active Protocol: Document 12/21/19 12:48 [facility] (Rec: 12/21/19 12:55 [facility] [id number]) OT ADL-Bathing Comments OT Bathing Comments Recommended that pt get a tub bench for showering as would be safer when pt having dizzy spells. Pt's states is always there to assist. Pt given information regarding places to obtain equipment. M9 OT- IP Assessment and Plan Start: 12/21/19 12:48 Freq: Status: Active Protocol: Suggested pt may benefit from FWW especially when feeling dizzy and unsteady, pt states she would rather use her to assist and feels the fWW would be too small for the RV. Pt states does not feel that she needs any LB dressing equipment as her will assist her as needed. Pt states is the process of going to see an ENT for needs and feels at this time OT not needed as her or mother will just assist with all her needs as needed. PT to assess pt for vestibular needs. Document 12/21/19 12:48 [facility] (Rec: 12/21/19 12:55 [facility] [id number]) OT Summary Assessment and Plan Discharge Recommendations OT Discharge Recommendations Home with Assistance Transportation Needs at Discharge Private Vehicle
--- NOTE | 2019-12-21 12:55 | OT.IP.TRT ---
Occupational Therapy Treatment Note M3 OT- IP Subjective and Pain Start: 12/21/19 12:48 Freq: Status: Active Protocol: Document 12/21/19 12:48 [facility] (Rec: 12/21/19 12:55 [facility] [id number]) OT- Subjective Occupational Therapy Visit Type Type Treatment Note Visit Start Time 12:05 Visit Stop Time 12:15 Total Visit Minutes 10 Notes Pt's in the room during OT treatment. Pt eating lunch and open to talking to OT regarding OT needs. M4 OT- IP ADL's Start: 12/21/19 12:48 Freq: Status: Active Protocol: Document 12/21/19 12:48 [facility] (Rec: 12/21/19 12:55 [facility] [id number]) OT ADL-Bathing Comments OT Bathing Comments Recommended that pt get a tub bench for showering as would be safer when pt having dizzy spells. Pt's states is always there to assist. Pt given information regarding places to obtain equipment. Spoke of use of LB dressing equipment and pt states will just have assist with her needs. M9 OT- IP Assessment and Plan Start: 12/21/19 12:48 Freq: Status: Active Protocol: Document 12/21/19 12:48 [facility] (Rec: 12/21/19 12:55 [facility] [id number]) OT Summary Assessment and Plan Discharge Recommendations Pt here due to acute vestibular neuritis and states not needing any OT as pt's will assist as needed for all needs especially when having dizzy spells. Pt open to safety suggestion of obtaining a tub bench for showering. Pt not wanting FWW and states prefers just to hang onto he instead. Therefore pt's to assist pt for all ADL needs as needed and no further OT needed at this time. Therefore discharge pt for OT services. PT to assess pt for vestibular impairments. OT Discharge Recommendations Home with Assistance Transportation Needs at Discharge Private Vehicle
--- NOTE | 2019-12-21 12:58 | CM.DANOTE ---
Addendum entered by Kimberley Vincent LPN 12/21/19 14:59: OT did also see pt today and noted pt's desire to forgoe many of OT recommedations in terms of DME etc and did note the plan was for the home setting where pt would also have prn assist from her mother. Addendum entered by Kimberley Vincent LPN 12/21/19 14:48: Met now with pt and her boyfriend Isai Herzog after seeing finalized d/c orders from Dr. Gordillo and speaking with PIPE Preston. Pt is found lying in bed in the dark, Brian at bedside. She is smiling and says I am feeling good about going home today. She said she was exeriencing a migraine earlier today so that was not helping her symtoms but she said Dr. Gordillo said it would take some time to recover and she could followup up with ENT and PT vestibular therapists in the outpt setting once she obtained a referral from the PCP: Eva Cadena. Pt said she had been able to be up in the room by herself and PIPE Preston confirmed this. Do see that she did not do as well with PT: the recommedation from PT in the initial eval this afternoon was for snf setting. Pt confirms her plan is for home with Isai's support and Dr. Gordillo agrees with same. Pt expects to leave as soon as d/c paperwork is completed. Addendum entered by Kimberley Vincent LPN 12/21/19 13:11: PAIGE Alvarenga has recommended ENT consult: am unclear if this will be done when pt is in the hospital. Original Note: Discharge Planning/Care Management DCP; assessment: case received, EMR reviewed. Went to room during Bedside Team Rounds with intent to see pt but Dr. Gordillo stated it best not to go into pt's room at this time. She stated that she planned to d/c pt home today but that she would be back to see pt later. At this time a d/c order is in place but not yet finalized. Pt is a 44 year old female who admitted to care of hospitalist team early this mornin: 16 and was seen by night hospitalist Mike Alvarenga. Dr. Gordillo is seeing her today. READMIT: noted: was was just here 7/18 and with a d/c to home later that day. Treated for symptoms of vestibular neuritis and on prednisone taper which ended yesterday. Per documentation, her symptoms then returned. Payer: [facility] out of [facility] Admission status: OBS: confirmed by UR PIPE Pratt. Pt also carries diagnoses of type II diabetes and Bipolar 1 disorder. PCP: Eva Cadena. P: follow as POC unfolds and met pt when she is in less distress and Dr. Gordillo has had a chance to see her. Will also confer with nurse caring for her today to see when might be best time for a visit. CM Discharge Assessment Start: 12/21/19 10:13 Freq: Status: Active Protocol: Document 12/21/19 12:57 ITV (Rec: 12/21/19 12:58 ITV [id number]) Discharge Planning Assessment Advance Directives? No Prior Living Arrangements House Household Members significant other,family, children Review Status In Process
--- NOTE | 2019-12-21 14:18 | PT.IIE ---
Surgical History (Last Reviewed 12/21/19 @ 04:37 by PAIGE Encarnacion) History of colonoscopy (Acute) Medical History (Last Reviewed 12/21/19 @ 04:37 by PAIGE Encarnacion) Acute vestibular neuritis (Acute) Asthma (Acute) Bipolar 1 disorder (Acute) Colon polyps (Acute) Fibromyalgia (Acute) Hypertension (Acute) Type 2 diabetes mellitus (Acute) Physical Therapy Inpatient Evaluation/Re-Eval M1 PT/OT-IP Prior Functional Status Start: 12/21/19 12:48 Freq: NEEDED Status: Active Protocol: Document 12/21/19 12:48 [facility] (Rec: 12/21/19 12:55 [facility] [id number]) Medical Review Prior Functional Status Medical History Reviewed Yes Communication Independent. Mobility and Gait Pt needing hand held assist from or family members at times. Activities of Daily Living and IADL's Pending on her severrity of dizziness at times able to do all ADL's on her own otherwise assists as needed. Social History Household Members significant other,family, children Living Arrangements House Number of Stairs To Enter/Railing? Pt has 3 steps with left hand rail going into the RV which they sleep in. Pt has to go into the house for the bathroom and shower. Pt has 2-3 step to the proch with no rails to get int othe house and 12 steps - 6 with left rail up , landing and another 6 steps with right rail to get to second floor where the tub/shower is at. Home Environment Standard Height Toilet,Tub/ Shower Doors Home Equipment Hand Held Shower M1 PT/OT-IP Prior Functional Status Start: 12/21/19 14:01 Freq: NEEDED Status: Active Protocol: Document 12/21/19 14:04 MB (Rec: 12/21/19 14:17 MB [id number]) Medical Review Prior Functional Status Medical History Reviewed Yes Communication Independent. Mobility and Gait Pt needing hand held assist from or family members at times. Activities of Daily Living and IADL's Pending on her severrity of dizziness at times able to do all ADL's on her own otherwise assists as needed. Social History Household Members significant other,family, children Living Arrangements House M2 PT-IP Current Condition Start: 12/21/19 14:01 Freq: NEEDED Status: Active Protocol: Document 12/21/19 14:04 MB (Rec: 12/21/19 14:17 MB [id number]) Physical Therapy Current Condition Current Condition Evaluation Date 12/21/19 Treatment Diagnosis Dizziness, imbalance, light- headedness Precautions Other Precautions Fall risk M3 PT-IP Subjective Start: 12/21/19 14:01 Freq: NEEDED Status: Active Protocol: Document 12/21/19 14:04 MB (Rec: 12/21/19 14:17 MB [id number]) Subjective Physical Therapy Visit Type Type Initial Evaluation Visit Start Time 12:40 Visit Stop Time 12:55 Total Visit Minutes 15 Notes Vestibular PT screen for central vs peripheral dysfunction. Was able to assess mobility to pt tolerance but unable to assess orthostatics, VOR Head Thrust or for BPPV Number of PROMOTIONS TEAM LEADER Visits 0 Physical Therapy Visit Comments Patient Comments Pt states that she feels dizzy and sick when she gets up. She tells this therapist that she has never had this dizziness before. She reports some left aural fullness but denies hearing changes. Patient Goals To decreased symptoms Therapy Pain Assessment Pain When Pain Assessed At Rest Pain Present Pain Present Denied Pain M4 PT-IP Mobility and Gait Start: 12/21/19 14:01 Freq: NEEDED Status: Active Protocol: Document 12/21/19 14:04 MB (Rec: 12/21/19 14:17 MB [id number]) PT-Bed Mobility Assessment Rolling Type of Rolling Roll to Left Level of Assist Standby Assistance Supine to Sit Supine to Sit Standby Assistance Sit to Supine Sit to Supine Standby Assistance Scooting Scooting to Edge of Bed Standby Assistance Scooting Up and Down in Bed Standby Assistance PT-Transfer Assessment Sit to and From Stand Sit to and from Stand Minimal Assistance Transfer Ability Level of Assist Minimal Assistance Comments Mobility Comments LOB to the left when attempting to take a step and so PT assist pt to sit back on the bed Gait Assessment Comments Gait Comments Unable to gait this date d/t LOB to the left when attempting to start walking to commode and pt reports dizziness/imbalance and light- headedness. PT-Balance Assessment Sitting Balance and Reactions Static Sitting Balance Ability Poor Dynamic Sitting Balance Ability Poor Standing Balance and Reactions Static Standing Balance Ability Poor Dynamic Standing Balance Ability Poor Comments Other Balance Tests/Deviations/Treatment UE support with static and : dynamic sitting. PT assist to prevent fall to the left with standing. Functional Assessments Other Functional Tests Performed Unable to perform today. 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 Unable to perform further MMT d/t left elbow IV infiltrating and PT triaging assessment for coordination and vestibular/central findings after determining that strength is grossly functional Coordination Assessment Gross Coordination Gross Coordination Impaired Assessment Finger to Nose Test Severe Impairment Pronation/Supination Test Severe Impairment Heel on Rose Test Minimal Impairment Coordination Comments Pt supine with head still: Left finger to nose more greatly impaired than the right. Rapid supination and pronation is severely impaired on the left. Right normal. Heel to rose mildly impaired on the left. Right is normal. In sitting, tapping foot over opposite foot mildly impaired on the left. Sensation Assessment Sensation Gross Sensation Left UE Impaired Comments Sensation Comments Pt reports tingling in her left arm and does not follow sensory cues well. Muscle Tone Muscle Tone WNL Yes Other Assessments Other Other Assessments No spontaneous nystagmus. Oculomotor exam horizontal and vertical smooth pursuits normal and then pt closes eyes and cannot tolerate further testing d/t symptoms. Pt unable to tolerate VOR Head Thrust or BPPV testing at eval time. Orthostatic testing deferred to [facility] staff. BP and HR in right UE in supine after treatment: 159/84, 110 M7 PT-IP Assessment and Plan Start: 12/21/19 14:01 Freq: NEEDED Status: Active Protocol: Document 12/21/19 14:04 MB (Rec: 12/21/19 14:17 MB [id number]) PT Summary Assessment and Plan Potential Rehabilitation Potential Fair Status of Condition at Evaluation Evolving Summary Impairments Balance,Coordination,Bed Mobility,Transfers,Gait, Activity Tolerance Assessment Summary Pt is a 44 y/o female presenting with dizziness, imbalance and light-headedness . See findings above. No spontaneous nystagmus today. Pt has increased symptoms with oculomotor testing. Unable to perform VOR Head Thrust and BPPV testing. Recommend orthostatic testing by nsg. Pt presents with severe impairments left UE coordination in supine with head still. She has LOB to left with getting up and requires asst to prevent fall. Recommend nsg assess orthostatics and ongoing PT and OT. Pt has a history of obesity, uncontrolled DM and HTN. PT is concerned about coordination abnormalities given these issues in a 44 y/o female, concerning for central problem. Goals Bed Mobility Goal Independent Transfer Goal Independent Gait Goal Independent Gait Distance 100 Frequency of Treatment Frequency Of Treatment Once a Day Treatment Plan Physical Therapy Treatment Plan Bed Mobility Training,Transfer Training,Gait Training, Therapeutic Exercise,Balance Retraining,Neuromuscular Re-ed ,Coordination Retraining Recommendations To Nursing Amount of Assist Needed 1 Person Assist Discharge Recommendations PT Discharge Recommendations SNF Rehab Transportation Needs at Discharge Wheelchair/Cabulance
--- NOTE | 2019-12-21 14:24 | P.DS_ITS ---
History of Present Illness History of Present Illness Date Patient Seen: 12/21/19 Chief complaint: vertigo Narrative: Written by Briana GIBSON: Ms. Ewa Gross is a 44-year-old female with a past medical history significant for type 2 diabetes with poor control, hypertension, mild persistent asthma, fibromyalgia and bipolar 1 disorder discharged on December 08 for severe dizziness associated with acute vestibular neuritis. The patient is providing much of the history. When she was discharged she improved over 2 days and had been taking a prednisone taper which she completed yesterday. And then after 2 days she started to decline again having incapacitating dizzy spells, nausea and vomiting. Her symptoms have remained persistent and incapacitating. Her symptoms are made worse by opening her eyes or moving. Nothing seems to make her symptoms better. She has had prior episodes of dizziness the they have been short in duration and not requiring treatment. She reports no recent illness with no fevers and chills, no complaints of nasal congestion or sore throat. She continues to complain of a generalized headache she attributes to her vomiting. Denies complaints of ear or neck pain. Denies chest pain or palpitations, shortness of breath but has a history of asthma for which she uses albuterol and Flovent on as needed basis. Denies fever, chills, sweats, cough or wheezing. She has abdominal wall pain from vomiting. She endorses constipation and will use MiraLax as needed, her last bowel movement was yesterday. She reports urinary frequency and did endorse burning. In the ED, they morgan her labs and she does have a jump in her creatinine from a normal range to 1.9 likely caused by dehydration. Patient has it is reported that she has been unable to keep anything down. No imaging studies were done during this visit in the ED . Patient is afebrile with a temp of 98.2?, blood pressure 135/72, heart rate of 103, respiratory rate of 18, oxygen saturation of 99%, she weighs 102.5 kilos with a BMI of 35.4. WBC is 15.8 with a left shift, RBC 4.33, hemoglobin 13.2, hematocrit 39.3, platelet count 304, sodium 132, potassium 4.0, chloride 99, CO2 24, creatinine 1.93, BUN 26, GFR 28.5, glucose 273, calcium 8.7, liver enzymes are normal, she had moderate bacteria and yeast however, culture was not indicated, COVID-19 and flu was negative. Discharge Providers Provider Date of admission: 12/21/19 00:16 Discharge Date: 12/21/19 Primary care physician: Eva Cadena PA-C Consults: 12/21/19 08:57 Consult to Occupational Therapy Evaluate & Treat Comment: vestibular neuritis Physician Instructions: Evaluate and treat Consult to Physical Therapy Evaluate & Treat Comment: vestibular neuritis Physician Instructions: Evaluate and Treat Discharge provider: Ct Gordillo DO Summary Hospital Course Discharge Diagnosis: 1. Acute vestibular neuritis, present on admission. Improved. 2. Acute kidney injury, present on admission. Resolving. 3. Diabetes mellitus type 2, insulin-using, present on admission. Stable. 4. Hypertension chronic, present on admission. Stable. 5. Leukocytosis, likely glucocorticoid induced, present on admission. Hospital Course: Ewa Gross is a 44-year-old female with a past medical history significant for diabetes mellitus type 2, insulin using, with poor control, hypertension, mild persistent asthma, fibromyalgia and bipolar 1 disorder readmitted with symptomatic severe dizziness, nausea and vomiting associated with acute vestibular neuritis. 1. Acute vestibular neuritis, present on admission. Improved. -Patient had completed a prednisone taper the day prior to admission. -Received prednisone 60 mg x 1 and discontinued per ENT as this is not indicated. Continued symptom management with Zofran and Compazine for nausea and vomiting. -Patient reports oral THC, however, per her she has not had any THC for month and a half so it is unlikely this is hyperemesis cannabis with cyclical vomiting syndrome. -Discussed case with on-call ENT and will expedite an appointment for patient to be evaluated. Recommended continued symptom management and physical and occupational therapy which was continued. 2. Acute kidney injury, present on admission. Resolving. -Initial creatinine 1.93. Baseline creatinine 0.7. Creatinine trended down with IV fluid hydration and resolution of N/V to 1.28. -Continued IV fluid hydration until patient well hydrated and able to take in PO. -Avoided nephrotoxic agents. -Continued to monitor creatnine daily. 3. Diabetes mellitus type 2, insulin-using, present on admission. Stable. -Hemoglobin A1C 13.0% inidicative of poor glycemic control. -Held oral antihyperglycemics. -Continued every 6 hour blood glucose while NPO and then switched to ACHS as patients N/V resolved and able to take in PO. Continued medium dose correctional scale insulin and discharged on home NPH. 4. Hypertension chronic, present on admission. Stable. -Held lisinopril due to her acute kidney injury until time of discharge. Continued metoprolol succinate 12.5 twice daily. 5. Leukocytosis, likely glucocorticoid induced, present on admission. -Initial WBC 15.8. Patient has been on glucocorticoids over the past week and likely cause also possibly reactive. -Continued to monitor for signs of infection of which no signs or symptoms. Exam Vital Signs (past 8 hours): - 12/21/19 08:45 12/21/19 09:00 Temperature 99.8 F H Pulse Rate 101 H Respiratory Rate 16 Blood Pressure 121/68 121/68 Pulse Oximetry 96 Oxygen Delivery Method Room Air Oxygen Flow Rate 0 Narrative Exam Narrative: General: Middle-aged female lying in bed and in no acute distress, well- developed, well-nourished, appropriately interactive. HEENT: Normocephalic, atraumatic. External ears without defect. Pupils equal, round, and reactive to light and accommodation. Anicteric sclerae, moist conjunctivae, and no lid lag. Oropharynx free of erythema and cobble stoning with moist mucosa. Neck: Supple with full range of motion. No lymphadenopathy or thyromegaly. Cardiovascular: Regular rate and rhythm without murmurs, rubs, or gallops appreciated. Pulmonary: Clear to auscultation bilaterally without crackles, wheezes, or rhonchi. Normal respiratory effort with no use of accessory muscles. Abdomen: Soft, obese, bowel sounds present, nontender, nondistended. No hepatosplenomegaly or masses appreciated. Extremities: No clubbing, cyanosis, or edema. Skin: Normal temperature, turgor, and texture; no rash, ulcers, or subcutaneous nodules appreciated. Neurological: Cranial nerves grossly intact. Normal muscle strength, tone, and bulk. Reflexes, coordination, and sensory function within normal limits. No known gait impairment. No nystagmus. No focal neurological deficits. Psychiatric: Normal mood and affect. Alert and oriented to person, place, and time. Objective Labs Result Diagrams: 12/21/19 08:09 12/21/19 08:09 Labs: Laboratory Results - last 24 hr 12/20/19 12/20/19 12/21/19 21:40 21:40 00:32 WBC 15.8 H RBC 4.33 Hgb 13.2 Hct 39.3 MCV 90.7 MCH 30.4 MCHC 33.5 RDW 12.7 Plt Count 304 Neut % (Auto) 73.3 Lymph % (Auto) 18.2 L [place] % (Auto) 6.8 Eos % (Auto) 0.8 L Baso % (Auto) 0.9 Neut # (Auto) 65409 H Lymph # (Auto) 2900 [place] # (Auto) 1100 H Eos # (Auto) 100 Baso # (Auto) 100 Sodium 132 L Potassium 4.0 Chloride 99 Carbon Dioxide 24 BUN 26 H Creatinine 1.93 H Estimated GFR 28.5 L BUN/Creatinine Ratio 13.5 Glucose 273 H Calcium 8.7 Magnesium Total Bilirubin 0.5 AST 19 ALT 19 Alkaline Phosphatase 125 Total Protein 6.7 Albumin 3.6 Globulin 3.1 Albumin/Globulin Ratio 1.2 Urine Color Urine Appearance Urine pH Ur Specific Dawson Urine Protein Urine Glucose (UA) Urine Ketones Urine Occult Blood Urine Nitrate Urine Bilirubin Ur Bilirubin Confirm Urine Urobilinogen Ur Leukocyte Esterase Urine RBC Urine WBC Ur Squamous Epith Cells Amorphous Sediment Urine Bacteria Urine Yeast Ur Culture Indicated? COVID-19 PCR Influenza A (RT-PCR) Flu a negative Influenza B (RT-PCR) Flu b negative 12/21/19 12/21/19 12/21/19 00:32 02:15 08:09 WBC 12.7 H RBC 3.60 L Hgb 11.0 L Hct 32.3 L MCV 89.8 MCH 30.4 MCHC 33.9 RDW 12.6 Plt Count 265 Neut % (Auto) 64.1 Lymph % (Auto) 26.0 [place] % (Auto) 8.1 Eos % (Auto) 1.4 L Baso % (Auto) 0.4 Neut # (Auto) 8100 H Lymph # (Auto) 3300 [place] # (Auto) 1000 H Eos # (Auto) 200 Baso # (Auto) 0 Sodium Potassium Chloride Carbon Dioxide BUN Creatinine Estimated GFR BUN/Creatinine Ratio Glucose Calcium Magnesium Total Bilirubin AST ALT Alkaline Phosphatase Total Protein Albumin Globulin Albumin/Globulin Ratio Urine Color Yellow Urine Appearance Sl cloudy Urine pH 5.0 Ur Specific Dawson >=1.030 H Urine Protein 2+ H Urine Glucose (UA) 1+ H Urine Ketones Trace H Urine Occult Blood 1+ H Urine Nitrate Negative Urine Bilirubin 1+ H Ur Bilirubin Confirm Negative Urine Urobilinogen 0.2 Ur Leukocyte Esterase Trace H Urine RBC 5-10/hpf H Urine WBC 1-5/hpf Ur Squamous Epith Cells 5-10 /hpf H Amorphous Sediment 1+ Urine Bacteria Moderate (10-30) H Urine Yeast 10-30/hpf H Ur Culture Indicated? Cult not indicated COVID-19 PCR Negative Influenza A (RT-PCR) Influenza B (RT-PCR) 12/21/19 08:09 WBC RBC Hgb Hct MCV MCH MCHC RDW Plt Count Neut % (Auto) Lymph % (Auto) Def[place] % (Auto) Eos % (Auto) Baso % (Auto) Neut # (Auto) Lymph # (Auto) [place] # (Auto) Eos # (Auto) Baso # (Auto) Sodium 132 L Potassium 3.5 Chloride 106 Carbon Dioxide 21 L BUN 26 H Creatinine 1.28 H Estimated GFR 45.7 L BUN/Creatinine Ratio 20.3 Glucose 133 H D Calcium 7.7 L Magnesium 1.7 Total Bilirubin AST ALT Alkaline Phosphatase Total Protein Albumin Globulin Albumin/Globulin Ratio Urine Color Urine Appearance Urine pH Ur Specific Dawson Urine Protein Urine Glucose (UA) Urine Ketones Urine Occult Blood Urine Nitrate Urine Bilirubin Ur Bilirubin Confirm Urine Urobilinogen Ur Leukocyte Esterase Urine RBC Urine WBC Ur Squamous Epith Cells Amorphous Sediment Urine Bacteria Urine Yeast Ur Culture Indicated? COVID-19 PCR Influenza A (RT-PCR) Influenza B (RT-PCR) Discharge Plan Discharge Plan Patient Disposition: Home Discharge comment: Your being discharged home. You had a flare-up of your vestibular neuritis and the treatment for this is symptomatic control and vestibular training with physical therapy. ENT has been contacted and will try to get you in for an appointment in the near future. Please try to stay well hydrated, have regular bowel movements as constipation may contribute to nausea and vomiting, and control your diabetes more tightly and under supervision of your primary care provider. Please follow-up with your primary care provider, Eva Cadena PA-C regarding your hospitalization for vestibular neuritis and referral to physical therapy for vestibular training, as well as, diabetic management. If you have chronic daily headaches would recommend treatment for migraine headache as before since vestibular headache may be contributing to sym ptoms of dizziness, nausea and vomiting. Discharge orders & Medications Prescriptions: New prochlorperazine maleate [Compazine] 10 mg tablet 10 mg PO Q6H PRN (Reason: nausea and vomiting) Qty: 20 RF: 0 Continued lisinopril 20 mg tablet 20 mg PO BID RF: 0 glimepiride 4 mg tablet 4 mg PO DAILY RF: 0 albuterol sulfate 90 mcg/actuation Hfa Aerosol Inhaler 2 puff INHALATION Q4-6H PRN (Reason: Shortness Of Breath Or Wheezing) RF: 0 Flovent HFA 110 mcg/actuation Hfa Aerosol Inhaler 1 puff INHALATION BID PRN (Reason: Shortness Of Breath Or Wheezing) RF: 0 cyclobenzaprine 10 mg tablet 10 mg PO TID PRN (Reason: Muscle Spasm) RF: 0 meclizine 25 mg tablet 25 mg PO TID PRN (Reason: dizziness) Qty: 30 RF: 0 ondansetron 8 mg tablet,disintegrating 8 mg PO Q8H PRN (Reason: nausea and vomiting) Qty: 20 RF: 0 insulin NPH isoph U-100 human 100 unit/mL suspension 20 unit SUBCUT BID Qty: 10 RF: 0 (DME) insulin syringe-needle U-100 [BD Insulin Syringe Ultra-Fine] 1 mL 31 gauge x 5/16 syringe See Rx Instructions .ROUTE .MEDSUPPLY Qty: 100 RF: 0 Follow up/Referrals: [facility] [Provider Group] - 1 Week Eva Cadena PA-C [Primary Care Provider] - 3-5 Days Diet/Activity/Treatments Diet: Diet as Tolerated, Carb-consistent/Diabetic, Low-fat, Low-sodium and Low- cholesterol Activity: Activity as tolerated with physical therapy Visit Report/Discharge Packet Instructions: DI for Vertigo, Prochlorperazine (By mouth) Visit Report Forms: Patient Portal/API, Stroke Signs & Symptoms Discharge Data Primary Care Provider: Eva Cadena Attending Provider: Briana Alvarenga Admit Date/Time: 12/21/19 00:16 Discharges patient from system. Discharge Date/Time: 12/21/19 15:19
[2019-12-21] MEDS: SUMAtriptan 25 MG TABLET 100 MG PO (14:48)
--- NOTE | 2019-12-21 15:16 | PC.NURSE ---
Pt is dressed and ready for discharge home with Spouse. Went over d/c instructions with Pt and Spouse - discussed d/c meds, time of last dose, reviewed stroke education, follow up, encouraged po fluids to prevent constipation or dehydration, discussed miralax if needed. Pt IV has been removed, discussed follow up with physical therapy and ENT. Pt agrees to call for appointments as directed. Pt out via w/c by [facility] to pov with Spouse and all belongings.
--- NOTE | 2020-01-03 20:09 | PC.NURSE ---
Late Entry: Potassium infusion initiated on 12/20 at 9:14, complete at 13:15.
== END 2019-12-21 15:19 | disposition home or self-care (01) ==
LOC: ED 21:12 → AC 12-21 00:16
PROVIDERS: Admitting Provider Nurse Practitioner Family; Emergency Provider Emergency Medicine; PCP Physician Assistant Medical; Visit Provider Nurse Practitioner Family
DX: H81.20 Vestibular neuronitis, unspecified ear (principal); R11.2 Nausea with vomiting, unspecified; N17.9 Acute kidney failure, unspecified; E86.0 Dehydration; E11.9 Type 2 diabetes mellitus without complications; E78.5 Hyperlipidemia, unspecified; J45.909 Unspecified asthma, uncomplicated; M79.7 Fibromyalgia; F31.9 Bipolar disorder, unspecified; I10 Essential (primary) hypertension; Z79.4 Long term (current) use of insulin; F17.210 Nicotine dependence, cigarettes, uncomplicated; Z11.59 Encounter for screening for other viral diseases
CPT/HCPCS: 36415; 80048; 80053; 81001; 82962; 83735; 85025; 87502; 87635; 96361; 96372; 96374; 96375; 96376; 97162; 97530; 99284; G0378; J0780; J2405; J3360; J3480; J7050

== ENCOUNTER 2020-06-21 06:53 | Emergency (ER) | payer BC, SELFPAY ==
[2020-06-21] VITALS (8 sets, daily range): BP systolic 173–220; BP diastolic 84–102; PULSE 85–92; RESP 22; TEMP 36.7; O2SAT 96–98; BMI 37.5
--- NOTE | 2020-06-21 07:05 | ED.ABDPAIN ---
HPI - Abdominal Pain General Chief Complaint: Abdominal Pain Stated Complaint: stomach pain x 5 days Time Seen by Provider: 06/21/20 06:59 Source: patient Mode of arrival: Ambulatory Limitations: no limitations History of Present Illness HPI narrative: Patient is a 45-year-old female with history of diabetes hypertension, presenting with 5 days of abdominal pain. Her pain in the right side, periumbilical region not moving. She has been taking Tylenol and ibuprofen without any relief. She denies fever nausea vomiting or diarrhea MD complaint: abdominal pain Onset (ago): day(s) (5) Pain Consistency: constant Location: RLQ Radiation: none Relieving factors: nothing Exacerbating factors: nothing Related Data Home Medications Medication Instructions Recorded Confirmed Flovent HFA 1 puff INHALATION BID PRN 12/09/19 12/21/19 albuterol sulfate 2 puff INHALATION Q4-6H PRN 12/09/19 12/21/19 cyclobenzaprine 10 mg PO TID PRN 12/09/19 12/21/19 glimepiride 4 mg PO DAILY 12/09/19 12/21/19 lisinopril 20 mg PO BID 12/09/19 12/21/19 Previous Rx's Medication Instructions Recorded insulin NPH isoph U-100 human 20 unit SUBCUT BID #10 ml 12/09/19 insulin syringe-needle U-100 [BD #100 each 12/09/19 Insulin Syringe Ultra-Fine] meclizine 25 mg PO TID PRN #30 tab 12/09/19 ondansetron 8 mg PO Q8H PRN #20 tab 12/09/19 prochlorperazine maleate 10 mg PO Q6H PRN #20 tab 12/21/19 [Compazine] oxycodone-acetaminophen [Percocet] 1 tab PO Q6H PRN #10 tab 06/21/20 Allergies Allergy/AdvReac Type Severity Reaction Status Date / Time Iodine and Iodide Containing Allergy Hives Verified 12/20/19 17:15 Produc latex Allergy Rash Verified 12/20/19 17:15 Penicillins Allergy Anaphylaxis Verified 12/20/19 17:15 hydromorphone [From Dilaudid] AdvReac Nausea Verified 12/20/19 17:15 Review of Systems Review of Systems Narrative: GENERAL: Denies chills, fatigue, malaise, fever, sweats, travel HEENT: Denies sinus pain, ear pain, sore throat, difficulty swallowing, neck pain RESPIRATORY: Denies dyspnea, cough, wheezing, hemoptysis, sputum. CARDIOVASCULAR: Denies chest pain, palpitations, orthopnea, edema GASTROINTESTINAL: See HPI : Denies dysuria, frequency, incontinence, hematuria, urinary retention, flank pain. MUSCULOSKELETAL: Denies weakness, joint pain, or bony pain SKIN: No rash, no erythema, no pruritus NEUROLOGIC: Denies weakness, dizziness, headache, numbness, change in speech, confusion PSYCHIATRIC: No concerning psychosocial issues. 12 point review of systems is negative except for those stated above and HPI Patient History Medical History (Updated 06/21/20 @ 09:50 by Dede Harvey DO) Acute vestibular neuritis Asthma Bipolar 1 disorder Colon polyps Fibromyalgia Hypertension Type 2 diabetes mellitus Surgical History History of colonoscopy Family History Father Hypertension Bipolar disorder Mother Cancer Diabetes mellitus Daughter No significant medical problems Social History household members: significant other, family and children Smoking Status: Current every day smoker alcohol intake: current Smoking Status: Current every day smoker alcohol intake frequency: holidays/special occasions only Substance Use Type: marijuana Exam Initial Vital Signs Initial Vital Signs: Vital Signs Temperature 98.0 F 06/21/20 07:02 Pulse Rate 88 06/21/20 07:02 Respiratory Rate 22 06/21/20 07:02 Blood Pressure 220/100 H 06/21/20 07:02 Pulse Oximetry 98 06/21/20 07:02 GENERAL: Overweight female appears in pain HEENT: Head atraumatic,EOMI, pupils reactive, face symmetric, moist mucous membranes CARDIOVASCULAR: Regular rate and rhythm without murmurs, rubs or gallops. RESPIRATORY: Breath sounds equal bilaterally, no wheezes rales or rhonchi. ABDOMEN: Soft. Tender right side around periumbilical area tender to touch, negative Still sign mild right lower quadrant pain : No CVA tenderness EXTREMITIES: Normal range of motion, no clubbing or edema. Neurovascularly intact NEUROLOGICAL: Alert and oriented x4.Normal gait and speech. SKIN: Warm, dry, no laceration, no petechiae, no rashes or lesions. Course Orders Ordered: ED Orders 06/21/20 07:20 Urine Microscopic Stat 06/21/20 07:30 Complete Blood Count AUTO DIFF Stat Comprehensive Metabolic Panel Stat Lipase Stat 06/21/20 08:15 CT abdomen pelvis w con Stat Discontinued Medications Diphenhydramine HCl (Diphenhydramine 50 Mg/Ml Vial) 25 mg IV NOW ONE Stop: 06/21/20 07:10 Last Admin: 06/21/20 07:21 Dose: 25 mg Documented by: ADRIANNE Sodium Chloride (Normal Saline 0.9%) 1,000 mls @ 150 mls/hr IV CONT UMU Last Infusion: 06/21/20 08:22 Dose: 0 mls/hr Documented by: Admin: 06/21/20 07:21 Dose: 150 mls/hr Documented by: ADRIANNE Ketorolac Tromethamine (Ketorolac 60 Mg/2 Ml Vial) 30 mg IV NOW ONE Stop: 06/21/20 09:54 Last Admin: 06/21/20 09:57 Dose: 30 mg Documented by: NARAYAN Methylprednisolone (Methylprednisolone 125 Mg/2 Ml Vial) 125 mg IV NOW ONE Stop: 06/21/20 07:10 Last Admin: 06/21/20 07:20 Dose: 125 mg Documented by: ADRIANNE Morphine Sulfate (Morphine 4 Mg/Ml Inj) 4 mg IV NOW ONE Stop: 06/21/20 07:10 Last Admin: 06/21/20 07:21 Dose: 4 mg Documented by: ADRIANNE Ondansetron HCl (Ondansetron 4 Mg/2 Ml Inj) 4 mg IV NOW ONE Stop: 06/21/20 07:10 Last Admin: 06/21/20 07:21 Dose: 4 mg Documented by: ADRIANNE Vital Signs Vital signs: Vital Signs - 8 hr 06/21/20 07:02 06/21/20 07:06 06/21/20 07:34 Temperature 98.0 F Pulse Rate 88 89 91 H Respiratory Rate 22 Blood Pressure 220/100 H Pulse Oximetry 98 98 98 06/21/20 07:37 06/21/20 08:00 06/21/20 08:01 Temperature Pulse Rate 89 85 85 Respiratory Rate Blood Pressure 214/102 H 207/98 H Pulse Oximetry 98 97 97 06/21/20 10:02 06/21/20 10:35 Temperature Pulse Rate 87 92 H Respiratory Rate 22 Blood Pressure 173/84 H Pulse Oximetry 96 98 MDM - Abdominal Pain Lab Data Attestation: I reviewed the patient's lab results. Result diagrams: 06/21/20 07:30 06/21/20 07:30 Labs: Lab Results 06/21/20 06/21/20 06/21/20 Range/Units 07:20 07:30 07:30 WBC 12.3 H (4.5-11.0) X10^3/uL RBC 4.37 (4.0-5.2) X10^6/uL Hgb 13.0 (12.0-16.0) g/dL Hct 39.0 (36-46) % MCV 89.4 (80-100) fL MCH 29.7 (26-34) PG MCHC 33.2 (30-36) % RDW 12.4 (11.6-14.8) % Plt Count 336 (150-400) X10^3/uL Neut % (Auto) 56.8 (50-75) % Lymph % (Auto) 32.3 (25-40) % [place] % (Auto) 6.4 (3-14) % Eos % (Auto) 3.4 (2-4) % Baso % (Auto) 1.1 (0-2) % Neut # (Auto) 7000 (2126-2641) /uL Lymph # (Auto) 4000 (0328-7977) /uL [place] # (Auto) 800 (0-900) /uL Eos # (Auto) 400 (0-450) /uL Baso # (Auto) 100 (0-100) /uL Sodium 131 L (137-145) mmol/L Potassium 4.3 (3.4-5.1) mmol/L Chloride 100 (98-107) mmol/L Carbon Dioxide 25 (22-32) mmol/L BUN 18 H (7-17) mg/dL Creatinine 0.61 (0.52-1.04) mg/dL Estimated GFR > 60.0 (>60) mL/min BUN/Creatinine Ratio 29.5 H (6-22) Glucose 367 H (70-100) mg/dL Calcium 9.3 (8.4-10.2) mg/dL Total Bilirubin 0.2 (0.2-1.3) mg/dL AST 24 (14-36) IU/L ALT 28 (<35) IU/L Alkaline Phosphatase 182 H (38-126) U/L Total Protein 7.3 (6.3-8.2) g/dL Albumin 4.0 (3.5-5.0) g/dL Globulin 3.3 (1.7-4.1) g/dL Albumin/Globulin Ratio 1.2 (1.0-2.8) Lipase 76 (23-300) U/L Urine RBC 10-30/hpf H (0-5/HPF) Urine WBC 1-5/hpf (0-5/HPF) Ur Squamous Epith Cells 5-10 /hpf H (0-5/HPF) Urine Bacteria None seen (None) Ur Culture Indicated? Cult not indicated Point of care testing: Point of Care Testing Test Results Negative Urine Dip Bedside Urine Glucose 1000 mg/dl Bedside Urine Bilirubin - Negative Bedside Urine Ketone - Negative Urine Specific [place] 1.015 Bedside Urine Occult Blood + Bedside Urine pH 6.0 Bedside Urine Protein + 30 Bedside Urine Urobilinogen - Negative Bedside Urine Nitrite - Negative Bedside Urine Leukocytes - Negative Esterase Imaging Data CT scan - abdomen/pelvis: Radiologist's Impression: PROCEDURE: CT ABDOMEN PELVIS W CON INDICATIONS: right lower pain TECHNIQUE: After the administration of intravenous contrast, 5 mm thick sections acquired from the diaphragm to the symphysis. 5 mm coronal and sagittal reformats were acquired. For radiation dose reduction, the following was used: automated exposure control, adjustment of mA and/or kV according to patient size. COMPARISON: [facility], CT, CT ABDOMEN PELVIS WO CON, 11/28/2018, 22:10. FINDINGS: Image quality: Excellent. ABDOMEN: Lung bases: Lung bases are clear. Heart size is normal. Solid organs: There are 3 small hypervascular foci within the liver with indistinct margins. The findings are nonspecific but likely represent flash filling hemangiomas. The gallbladder appears within normal limits without calcified gallstones. Biliary system is non-dilated. Pancreas enhances normally. No peripancreatic fat stranding or fluid collections. No pancreatic duct dilatation. The spleen is normal in size. There is a stable small right adrenal nodule measuring up to 1.0 cm with attenuation values on the prior CT compatible with an adenoma. Kidneys demonstrate no hydronephrosis. Peritoneum and bowel: Bowel loops demonstrate normal wall thickness and caliber. The appendix is normal in appearance. There is mild colonic diverticulosis without acute diverticulitis. No free fluid or air. Nodes and vessels: No retroperitoneal or mesenteric adenopathy by size criteria. Aorta and inferior vena cava are normal in size. Miscellaneous: There is a small fat-containing umbilical hernia. PELVIS: Genitourinary: Bladder wall thickness is normal. The uterus and ovaries are mildly prominent in size likely representing physiologic changes. Miscellaneous: No inguinal hernias or adenopathy. Bones: No suspicious bony lesions. No vertebral body compression fractures. IMPRESSION: 1. No definite acute intra-abdominal abnormality. Specifically, no evidence of acute appendicitis. 2. Colonic diverticulosis without acute diverticulitis. 3. Small fat-containing umbilical hernia. Dictated by: Gabriel Sheets M.D. on 06/21/2020 at 8:33 MDM Narrative Medical decision making narrative: 9:45 a.m. discussed case with Dr. Laureano who has reviewed CT at this time non emergent surgery. Recommends pain control only. Very small umbilical fat containing hernia. Is happy to see her outpatient in clinic. Patient's pain is better after morphine and Toradol. Blood work is overall reassuring. Surgery has been consulted with CT findings and at this time nonsurgical. Discharge Plan Departure Patient Disposition: Home Clinical Impression: Hernia, umbilical Qualifiers: Obstruction and gangrene presence: without obstruction or gangrene Qualified Code(s): K42.9 - Umbilical hernia without obstruction or gangrene Instructions: DI Umbilical Hernia-Child Activity Restrictions/Additional Instructions: *You have been diagnosed with umbilical hernia *What to do: At this time you have a very small fat containing belly button hernia. It is not surgical. But is likely causing your pain. *Continue to take medications as directed Tylenol 650 mg every 4-6 hours if needed for pain Ibuprofen 600 mg every 6-8 hours if needed for pain Percocet 1 tablet every 6 hours if needed for severe pain--> SENT TO [facility] [place] *Follow up with your primary care provider in 2-3 days *Return to ER if you should have worsening pain, fever, persistent vomiting or any new, worsening or concerning symptoms CONTROLLED SUBSTANCE DISCHARGE (Narcotoic/benzodiazepine/Flexeril/Phenergan) 1. You have been prescribed narcotic medications, it does have acetaminophen/Tylenol/paracetamol in it, DO NOT TAKE MORE THAN 4,00mg in 24 hours of Tylenol. TRAMADOL DOES NOT CONTAIN TYLENOL 2. Please understand that we cannot provide further refills of narcotics, benzodiazepines or controlled substances through the ED and her pain management will need to be through your provider. 3. While on these medications you cannot drive or operate heavy machinery. 4. You cannot sign legal documents or perform any duties such as this. 5. As long as you're taking opiate pain medications he should also be taking a stool softener such as Colace, Dulcolax, MiraLAX or prune juice, to help avoid constipation. Prescriptions: New oxycodone-acetaminophen [Percocet] 5-325 mg tablet 1 tab PO Q6H PRN (Reason: pain) Qty: 10 RF: 0 No Action prochlorperazine maleate [Compazine] 10 mg tablet 10 mg PO Q6H PRN (Reason: nausea and vomiting) Qty: 20 RF: 0 lisinopril 20 mg tablet 20 mg PO BID RF: 0 glimepiride 4 mg tablet 4 mg PO DAILY RF: 0 albuterol sulfate 90 mcg/actuation Hfa Aerosol Inhaler 2 puff INHALATION Q4-6H PRN (Reason: Shortness Of Breath Or Wheezing) RF: 0 Flovent HFA 110 mcg/actuation Hfa Aerosol Inhaler 1 puff INHALATION BID PRN (Reason: Shortness Of Breath Or Wheezing) RF: 0 cyclobenzaprine 10 mg tablet 10 mg PO TID PRN (Reason: Muscle Spasm) RF: 0 meclizine 25 mg tablet 25 mg PO TID PRN (Reason: dizziness) Qty: 30 RF: 0 ondansetron 8 mg tablet,disintegrating 8 mg PO Q8H PRN (Reason: nausea and vomiting) Qty: 20 RF: 0 insulin NPH isoph U-100 human 100 unit/mL suspension 20 unit SUBCUT BID Qty: 10 RF: 0 (DME) insulin syringe-needle U-100 [BD Insulin Syringe Ultra-Fine] 1 mL 31 gauge x 5/16 syringe See Rx Instructions .ROUTE .MEDSUPPLY Qty: 100 RF: 0 Referrals: Eva Cadena PA-C [Primary Care Provider] - Stand Alone Forms: Work Release Note
[2020-06-21] MEDS: methylPREDNISolone 125 MG/2 ML VIAL IV (07:20)
[2020-06-21] MEDS: MORPHINE 4 MG/ML INJ IV (07:21)
[2020-06-21] MEDS: ONDANSETRON 4 MG/2 ML INJ IV (07:21)
[2020-06-21] MEDS: diphenhydrAMINE 50 MG/ML VIAL 25 MG IV (07:21)
[2020-06-21] MEDS: SODIUM CHLORIDE 0.9% 1,000 ML 150 ML IV (07:21)
[2020-06-21 07:46] LABS: Add Manual Diff / Slide Review NO; Basophils Absolute Auto 100 /uL (0-100); Basophils Percent Auto 1.1 % (0-2); Eosinophils Absolute Auto 400 /uL (0-450); Eosinophils Percent Auto 3.4 % (2-4); Lymphocytes Absolute Auto 4000 /uL (1100-4500); Lymphocytes Percent Auto 32.3 % (25-40); Mean Corpuscular HGB Conc 33.2 % (30-36); Mean Corpuscular Hemoglobin 29.7 PG (26-34); Mean Corpuscular Volume 89.4 fL (80-100); Monocytes Absolute Auto 800 /uL (0-900); Monocytes Percent Auto 6.4 % (3-14); Neutrophils Absolute Auto 7000 /uL (1500-7000); Neutrophils Percent Auto 56.8 % (50-75); Platelet Count 336 X10^3/uL (150-400); Red Blood Cell Count 4.37 X10^6/uL (4.0-5.2); Red Cell Distribution Width 12.4 % (11.6-14.8); White Blood Cell Count 12.3 X10^3/uL (4.5-11.0)
[2020-06-21 07:49] LABS: Bacteria Urine None Seen
[2020-06-21 07:57] LABS: Culture Indicated Urine Cult Not Indicated; RBC Urine 10-30/HPF (0-5/HPF); Squamous Epithelial Cell Urine 5-10 /HPF (0-5/HPF); WBC Urine 1-5/HPF (0-5/HPF)
[2020-06-21 07:59] LABS: Alanine Aminotransferase 28 IU/L (<35); Albumin Globulin Ratio 1.2 (1.0-2.8); Alkaline Phosphatase 182 U/L (38-126); Aspartate Aminotransferase 24 IU/L (14-36); BUN Creatinine Ratio 29.5 (6-22); Bilirubin Total 0.2 mg/dL (0.2-1.3); Blood Urea Nitrogen 18 mg/dL (7-17); Calcium 9.3 mg/dL (8.4-10.2); Carbon Dioxide 25 mmol/L (22-32); Chloride 100 mmol/L (98-107); Estimated Glomerular Filt Rate > 60.0 mL/min (>60); Globulin 3.3 g/dL (1.7-4.1); Glucose 367 mg/dL (70-100); HEMOLYSIS < 15 (0-50); Lipase 76 U/L (23-300); Potassium 4.3 mmol/L (3.4-5.1); Sodium 131 mmol/L (137-145); Total Protein 7.3 g/dL (6.3-8.2)
--- NOTE | 2020-06-21 08:15 | DI.CT.S_ITS ---
PROCEDURE: CT ABDOMEN PELVIS W CON INDICATIONS: right lower pain TECHNIQUE: After the administration of intravenous contrast, 5 mm thick sections acquired from the diaphragm to the symphysis. 5 mm coronal and sagittal reformats were acquired. For radiation dose reduction, the following was used: automated exposure control, adjustment of mA and/or kV according to patient size. COMPARISON: [facility], CT, CT ABDOMEN PELVIS WO CON, 11/28/2018, 22:10. FINDINGS: Image quality: Excellent. ABDOMEN: Lung bases: Lung bases are clear. Heart size is normal. Solid organs: There are 3 small hypervascular foci within the liver with indistinct margins. The findings are nonspecific but likely represent flash filling hemangiomas. The gallbladder appears within normal limits without calcified gallstones. Biliary system is non-dilated. Pancreas enhances normally. No peripancreatic fat stranding or fluid collections. No pancreatic duct dilatation. The spleen is normal in size. There is a stable small right adrenal nodule measuring up to 1.0 cm with attenuation values on the prior CT compatible with an adenoma. Kidneys demonstrate no hydronephrosis. Peritoneum and bowel: Bowel loops demonstrate normal wall thickness and caliber. The appendix is normal in appearance. There is mild colonic diverticulosis without acute diverticulitis. No free fluid or air. Nodes and vessels: No retroperitoneal or mesenteric adenopathy by size criteria. Aorta and inferior vena cava are normal in size. Miscellaneous: There is a small fat-containing umbilical hernia. PELVIS: Genitourinary: Bladder wall thickness is normal. The uterus and ovaries are mildly prominent in size likely representing physiologic changes. Miscellaneous: No inguinal hernias or adenopathy. Bones: No suspicious bony lesions. No vertebral body compression fractures. IMPRESSION: 1. No definite acute intra-abdominal abnormality. Specifically, no evidence of acute appendicitis. 2. Colonic diverticulosis without acute diverticulitis. 3. Small fat-containing umbilical hernia. Dictated by: Gabriel Sheets M.D. on 06/21/2020 at 8:33 Approved by: Gabriel Sheets M.D. on 06/21/2020 at 8:46
[2020-06-21] MEDS: KETOROLAC 60 MG/2 ML VIAL 30 MG IV (09:57)
== END 2020-06-21 10:38 | disposition home or self-care (01) ==
PROVIDERS: Emergency Provider Emergency Medicine; PCP Physician Assistant Medical
DX: K42.9 Umbilical hernia without obstruction or gangrene (principal); E11.9 Type 2 diabetes mellitus without complications; I10 Essential (primary) hypertension; F31.9 Bipolar disorder, unspecified; J45.909 Unspecified asthma, uncomplicated; E66.3 Overweight; Z68.37 Body mass index [BMI] 37.0-37.9, adult
CPT/HCPCS: 36415; 74177; 80053; 81003; 81015; 81025; 83690; 85025; 96361; 96374; 96375; 99283; 99284; J1200; J1885; J2270; J2405; J2930; Q9967

== ENCOUNTER 2022-02-12 23:37 | Emergency (ER) | payer BC, SELFPAY ==
[2022-02-12 23:45] VITALS: BP 179/87; PULSE 109; RESP 20; TEMP 36.8; O2SAT 97; BMI 36.0
--- NOTE | 2022-02-13 00:20 | ED_ITS ---
HPI - URI/Sore Throat General Chief Complaint: Upper Respiratory Symptoms Stated Complaint: SORE THROAT, COUGHING Time Seen by Provider: 02/13/22 00:18 Source: patient and family Mode of arrival: Ambulatory History of Present Illness HPI Narrative: Patient is a 46-year-old female history of diabetes hypertension presenting with upper respiratory like symptoms. She says it has been ongoing for about 3 weeks. She has had significant postnasal drip she has lost her voice. She says the postnasal drip makes her gag and vomit sometimes. She also feels like she coughs so hard that she vomits. She has a hard time sleeping at night because when she lays down the postnasal drip starts. She has lost her voice. She sometimes is short of breath when she walks. She has absolutely no chest pain. She has not had any fever or chills. She really has absolutely no abdominal pain. She overall just thought it was a virus and would get better but it just seems to continue. She denies any recent travel. Related Data Home Medications Medication Instructions Recorded Confirmed albuterol sulfate 90 mcg/actuation 2 puff inhalation Q4-6H PRN 12/09/19 12/21/19 aerosol inhaler Shortness Of Breath Or Wheezing cyclobenzaprine 10 mg tablet 10 mg PO TID PRN Muscle Spasm 12/09/19 12/21/19 fluticasone propionate 110 1 puff inhalation BID PRN 12/09/19 12/21/19 mcg/actuation HFA aerosol inhaler Shortness Of Breath Or Wheezing (Flovent HFA) glimepiride 4 mg tablet 4 mg PO DAILY 12/09/19 12/21/19 lisinopril 20 mg tablet 20 mg PO BID 12/09/19 12/21/19 Previous Rx's Medication Instructions Recorded insulin NPH isoph U-100 human 100 20 unit (0.2 mL) SUBCUT BID #10 mL 12/09/19 unit/mL subcutaneous suspension insulin syringe-needle U-100 1 mL #100 ea 12/09/19 31 gauge x 5/16 (BD Insulin Syringe Ultra-Fine) meclizine 25 mg tablet 25 mg PO TID PRN dizziness #30 tabs 12/09/19 ondansetron 8 mg disintegrating 8 mg PO Q8H PRN nausea and 12/09/19 tablet vomiting #20 tabs prochlorperazine maleate 10 mg 10 mg PO Q6H PRN nausea and 12/21/19 tablet (Compazine) vomiting #20 tabs oxycodone-acetaminophen 5 mg-325 1 tab PO Q6H PRN pain #10 tabs 06/21/20 mg tablet (Percocet) Allergies Allergy/AdvReac Type Severity Reaction Status Date / Time Iodine and Iodide Containing Allergy Hives Verified 12/20/19 17:15 Produc latex Allergy Rash Verified 12/20/19 17:15 Penicillins Allergy Anaphylaxis Verified 12/20/19 17:15 adhesive AdvReac Rash Verified 02/12/22 23:55 hydromorphone [From Dilaudid] AdvReac Nausea Verified 12/20/19 17:15 Review of Systems Review of Systems Narrative: GENERAL: Denies chills, fatigue, malaise, fever, sweats, travel HEENT: See HPI RESPIRATORY: See HPI CARDIOVASCULAR: Denies chest pain, palpitations, orthopnea, edema GASTROINTESTINAL: Denies nausea, vomiting, abdominal pain, diarrhea, constipation, melena. : Denies dysuria, frequency, incontinence, hematuria, urinary retention, flank pain. MUSCULOSKELETAL: Denies weakness, joint pain, or bony pain SKIN: No rash, no erythema, no pruritus NEUROLOGIC: Denies weakness, dizziness, headache, numbness, change in speech, confusion PSYCHIATRIC: No concerning psychosocial issues. 12 point review of systems is negative except for those stated above and HPI Patient History Medical History (Updated 02/13/22 @ 01:49 by Dede Harvey DO) Acute vestibular neuritis Asthma Bipolar 1 disorder Colon polyps Fibromyalgia Hypertension Type 2 diabetes mellitus Surgical History History of colonoscopy Family History Father Hypertension Bipolar disorder Mother Cancer Diabetes mellitus Daughter No significant medical problems Social History household members: significant other, family and children Smoking Status: Former smoker alcohol intake: current Smoking Status: Former smoker alcohol intake frequency: holidays/special occasions only Substance Use Type: does not use Exam Initial Vital Signs Initial Vital Signs: Vital Signs Temperature 98.3 F 02/12/22 23:45 Pulse Rate 109 H 02/12/22 23:45 Respiratory Rate 20 02/12/22 23:45 Blood Pressure 179/87 H 02/12/22 23:45 Pulse Oximetry 97 02/12/22 23:45 Oxygen Delivery Method 02/12/22 23:45 GENERAL: Pleasant 46 old female and in no acute distress. HEENT: Head atraumatic,EOMI, pupils reactive, face symmetric, moist mucous membranes PHARYNX: No significant erythema or enlarged tonsils CARDIOVASCULAR: Regular rate and rhythm without murmurs, rubs or gallops. RESPIRATORY: Breath sounds equal bilaterally, no wheezes rales or rhonchi. ABDOMEN: Soft, nontender. Normoactive bowel sounds all 4 quadrants. No guarding or rebound. EXTREMITIES: Normal range of motion, no clubbing or edema. Neurovascularly intact NEUROLOGICAL: Alert and oriented x4. SKIN: Warm, dry, no laceration, no petechiae, no rashes or lesions. Course Orders Ordered: ED Orders 02/13/22 00:30 Chest [XR chest 2V] Stat 02/13/22 00:33 Respiratory Panel (Film Array) Stat Discontinued Medications Albuterol (Albuterol 2.5 Mg/3 Ml Neb (Adult)) 2.5 mg INH Q20M UMU Stop: 02/13/22 01:11 Last Admin: 02/13/22 00:48 Dose: Not Given Documented By: Admin: 02/13/22 00:48 Dose: Not Given Documented By: Admin: 02/13/22 00:46 Dose: 2.5 mg Documented By: Albuterol (Albuterol Hfa Prepack) 1 box [facility] [place] SEEINSTR ONE Stop: 02/13/22 01:51 Last Admin: 02/13/22 01:59 Dose: 1 box Documented By: AMU Vital Signs Vital signs: Vital Signs - 8 hr 02/12/22 23:45 02/13/22 00:48 02/13/22 00:40 Temperature 98.3 F Pulse Rate 109 H 109 H 107 H Respiratory Rate 20 24 24 Blood Pressure 179/87 H 157/74 H Pulse Oximetry 97 99 Oxygen Delivery Method Room Air Room Air Room Air 02/13/22 01:30 Temperature Pulse Rate 109 H Respiratory Rate 20 Blood Pressure 160/74 H Pulse Oximetry 95 Oxygen Delivery Method Room Air MDM - URI/Sore Throat Differential Diagnosis Differential diagnosis: Likely upper respiratory infection, viral infection, bronchitis and other (PE, CHF, CAD) Lab Data Labs: Lab Results 02/13/22 Range/Units 00:33 Chlamy pneumoniae PCR Not detected (Not Detect) Adenovirus (PCR) Not detected (Not Detect) B. pertussis DNA (PCR) Not detected (Not Detecte) B.parapertussis DNA PCR Not detected (Not Detecte) Coronavirus OC43 (PCR) Not detected (Not Detect) Coronavirus HKU1 (PCR) Not detected (Not Detect) Coronavirus 229E (PCR) Not detected (Not Detect) SARS-CoV-2 (PCR) Not detected (Not Detecte) Coronavirus NL63 (PCR) Not detected (Not Detect) Human Metapneumovir PCR Not detected (Not Detect) Influenza Type A (PCR) Not detected (Not Detect) Influenza Type B (PCR) Not detected (Not Detect) M. pneumoniae (PCR) Not detected (Not Detect) Parainfluenza 1 (PCR) Not detected (Not Detect) Parainfluenza 2 (PCR) Not detected (Not Detect) Parainfluenza 3 (PCR) Not detected (Not Detect) Parainfluenza 4 (PCR) Not detected (Not Detect) RSV (PCR) Not detected (Not Detect) Entero/Rhino (PCR) Not detected (Not Detect) Point of Care Testing Rapid Strep A Negative Imaging Data Chest x-ray: Radiologist's Impression: Signed Patient: Ewa Gross MR#: [id number] : 1975 Acct:[id number] Age/Sex: 46 / F Date of Service: 02/13/22 Loc: Accession Number: [id number] ?? Procedure: XR chest 2V Ordering Provider: Dede Harvey D.O. PROCEDURE:? XR CHEST 2V ? INDICATIONS:? cough ? TECHNIQUE:? 2 views of the chest were acquired.? ? COMPARISON:? [facility], , XR CHEST 1V, 12/08/2019, 15:12. ? FINDINGS:? ? Surgical changes and devices:? None.? ? Lungs and pleura:? Lungs are clear.? No pleural effusions or pneumothorax.? ? Mediastinum:? Mediastinal contours are normal.? Heart size is normal.? ? Bones and chest wall:? No suspicious bony abnormalities.? Soft tissues appear unremarkable.? ? IMPRESSION:? ? 1.? No acute cardiopulmonary disease. ? ? ? Dictated by: Gabriel Sheets M.D. on 02/13/2022 at 1:25 ? ? Approved by: Gabriel Sheets M.D. on 02/13/2022 at 1:26? MDM Narrative Medical decision making narrative: Of patient is found to be mildly tachycardic. Lung sounds are clear but she does cough every time she takes a deep breath. She is given a DuoNeb treatment which testing to help. Respiratory panel is negative. She really has no chest pain she has no peripheral edema. She has obvious upper respiratory symptoms of significant postnasal drip and laryngitis. Respiratory panel is negative up probably and other virus. At this time she does not have symptoms of congestive heart failure pulmonary embolism. They do seem to be infectious. Discharge Plan Departure Patient Disposition: Home Clinical Impression: Acute upper respiratory infection Instructions: DI for Viral Upper Respiratory Infection -- Adult Activity Restrictions/Additional Instructions: *You have been diagnosed with upper respiratory infection *What to do: At this time her x-ray is negative your respiratory panel is negative it is possible you have another virus. *Continue to take medications as directed Albuterol inhaler 1-2 puffs every 4 hours if needed for cough or difficulty breathing *Follow up with your primary care provider in 2-3 days or call [phone] *Return to ER if you should have increased chest pain shortness of breath or any new, worsening or concerning symptoms Prescriptions: No Action prochlorperazine maleate [Compazine] 10 mg tablet 10 mg PO Q6H PRN (Reason: nausea and vomiting) Qty: 20 0RF oxycodone-acetaminophen [Percocet] 5-325 mg tablet 1 tab PO Q6H PRN (Reason: pain) Qty: 10 0RF lisinopril 20 mg tablet 20 mg PO BID Label Comments: take 1 tablet by mouth twice a day for HIGH BLOOD PRESSURE glimepiride 4 mg tablet 4 mg PO DAILY Label Comments: take 1 tablet by mouth once daily for diabetes albuterol sulfate 90 mcg/actuation Hfa Aerosol Inhaler 2 puff INHALATION Q4-6H PRN (Reason: Shortness Of Breath Or Wheezing) Flovent HFA 110 mcg/actuation Hfa Aerosol Inhaler 1 puff INHALATION BID PRN (Reason: Shortness Of Breath Or Wheezing) cyclobenzaprine 10 mg tablet 10 mg PO TID PRN (Reason: Muscle Spasm) Rx Instructions: TID PRN for muscle spasm meclizine 25 mg tablet 25 mg PO TID PRN (Reason: dizziness) Qty: 30 0RF ondansetron 8 mg tablet,disintegrating 8 mg PO Q8H PRN (Reason: nausea and vomiting) Qty: 20 0RF insulin NPH isoph U-100 human 100 unit/mL suspension 20 unit SUBCUT BID Qty: 10 0RF (DME) insulin syringe-needle U-100 [BD Insulin Syringe Ultra-Fine] 1 mL 31 gauge x 5/16 syringe See Rx Instructions .ROUTE .MEDSUPPLY Qty: 100 0RF Rx Instructions: As directed Referrals: Eva Cadena PA-C [Primary Care Provider] - Visit Report Forms: Patient Portal/API
--- NOTE | 2022-02-13 00:30 | DI.RAD.S_ITS ---
PROCEDURE: XR CHEST 2V INDICATIONS: cough TECHNIQUE: 2 views of the chest were acquired. COMPARISON: [facility], CR, XR CHEST 1V, 12/08/2019, 15:12. FINDINGS: Surgical changes and devices: None. Lungs and pleura: Lungs are clear. No pleural effusions or pneumothorax. Mediastinum: Mediastinal contours are normal. Heart size is normal. Bones and chest wall: No suspicious bony abnormalities. Soft tissues appear unremarkable. IMPRESSION: 1. No acute cardiopulmonary disease. Dictated by: Gabriel Sheets M.D. on 02/13/2022 at 1:25 Approved by: Gabriel Sheets M.D. on 02/13/2022 at 1:26
[2022-02-13 00:40] VITALS: BP 157/74; PULSE 107; RESP 24; O2SAT 99
[2022-02-13] MEDS: ALBUTEROL 2.5 MG/3 ML NEB (ADULT) INH (00:46)
[2022-02-13 00:48] VITALS: PULSE 109; RESP 24
[2022-02-13 01:30] VITALS: BP 160/74; PULSE 109; RESP 20; O2SAT 95
[2022-02-13 01:35] LABS: Adenovirus Not Detected (Not Detect); SARS- CoV-2 Not Detected (Not Detecte)
[2022-02-13 01:36] LABS: B. parapertussis Not Detected (Not Detecte); Bordetella pertussis Not Detected (Not Detecte); Chlamydophila pneumoniae Not Detected (Not Detect); Coronavirus 229E Not Detected (Not Detect); Coronavirus HKU1 Not Detected (Not Detect); Coronavirus NL 63 Not Detected (Not Detect); Coronavirus OC43 Not Detected (Not Detect); Human Metapneumovirus Not Detected (Not Detect); Human Rhinovirus/Enterovirus Not Detected (Not Detect); Influenza A Not Detected (Not Detect); Influenza B Not Detected (Not Detect); Mycoplasma pneumoniae Not Detected (Not Detect); Parainfluenza Virus 1 Not Detected (Not Detect); Parainfluenza Virus 2 Not Detected (Not Detect); Parainfluenza Virus 3 Not Detected (Not Detect); Parainfluenza Virus 4 Not Detected (Not Detect); Respiratory Syncytial Virus Not Detected (Not Detect)
[2022-02-13] MEDS: ALBUTEROL HFA PREPACK 1 BOX MISC (01:59)
== END 2022-02-13 02:03 | disposition home or self-care (01) ==
PROVIDERS: Emergency Provider Emergency Medicine; PCP Physician Assistant Medical
DX: J06.9 Acute upper respiratory infection, unspecified (principal); Z20.822 Contact with and (suspected) exposure to COVID-19
CPT/HCPCS: 71046; 87633; 87880; 94640; 99283; 99284; J7613

== ENCOUNTER 2022-06-05 17:26 | Emergency (ER) | payer BC, SELFPAY ==
[2022-06-05] VITALS (9 sets, daily range): BP systolic 154–205; BP diastolic 74–119; PULSE 85–96; RESP 14–44; TEMP 36.6; O2SAT 95–99; BMI 36.0
--- NOTE | 2022-06-05 17:48 | DI.RAD.S_ITS ---
PROCEDURE: XR CHEST 1V INDICATIONS: chest pain TECHNIQUE: One view of the chest was acquired. COMPARISON: [facility], CR, XR CHEST 1V, 12/08/2019, 15:12. [facility], CR, XR CHEST 2V, 02/13/2022, 0:33. FINDINGS: Surgical changes and devices: None. Lungs and pleura: Lungs are clear. No pleural effusions or pneumothorax. Mediastinum: Mediastinal contours appear normal. Heart size is normal. Bones and chest wall: No suspicious bony lesions. [id number] dextroconvex scoliosis is seen. Overlying soft tissues appear unremarkable. IMPRESSION: No acute cardiopulmonary process is seen. Dextroconvex scoliosis noted. Dictated by: Frank Acevedo M.D. on 06/05/2022 at 17:21 Approved by: Frank Acevedo M.D. on 06/05/2022 at 17:22
--- NOTE | 2022-06-05 17:50 | DI.CT.S_ITS ---
PROCEDURE: CT HEAD/BRAIN WO CON INDICATIONS: headache, HTN TECHNIQUE: Noncontrast 4.5 mm thick angled axial sections acquired from the foramen magnum to the vertex, with coronal and sagittal reformats. For radiation dose reduction, the following was used: automated exposure control, adjustment of mA and/or kV according to patient size. COMPARISON: [facility], CT, CT HEAD/BRAIN WO CON, 12/08/2019, 16:43. FINDINGS: Image quality: Excellent. CSF spaces: Basal cisterns are patent. No extra-axial fluid collections. Ventricles are normal in size and shape. Brain: No midline shift. No intracranial masses or hemorrhage. Gordillo-white matter interface is normal. Skull and face: Calvarium and visualized facial bones are intact, without suspicious lesions. Sinuses: Visualized sinuses and mastoids are clear. Partially visualized right-sided kody bullosa incidentally noted. IMPRESSION: No acute intracranial hemorrhage is seen. No acute intracranial process is seen. Stable from prior. Dictated by: Frank Acevedo M.D. on 06/05/2022 at 17:19 Approved by: Frank Acevedo M.D. on 06/05/2022 at 17:20
[2022-06-05 18:27] LABS: COVID-19 CEPHEID 4-PLEX PCR Negative (Negative); Influenza A - CEPHEID Flu A NEGATIVE (NEGATIVE); Influenza B - CEPHEID Flu B NEGATIVE (NEGATIVE); Respiratory Syncytial Virus Negative (Negative)
[2022-06-05 18:48] LABS: Prothrombin Time 11.2 SECONDS (10.1-12.7)
[2022-06-05 18:49] LABS: Add Manual Diff / Slide Review NO; Basophils Absolute Auto 100 /uL (0-100); Basophils Percent Auto 0.9 % (0-2); Eosinophils Absolute Auto 300 /uL (0-450); Eosinophils Percent Auto 2.5 % (2-4); Hematocrit 35.4 % (36-46); Hemoglobin 11.9 g/dL (12.0-16.0); Lymphocytes Absolute Auto 3300 /uL (1100-4500); Lymphocytes Percent Auto 24.3 % (25-40); Mean Corpuscular HGB Conc 33.6 % (30-36); Mean Corpuscular Hemoglobin 28.9 PG (26-34); Monocytes Absolute Auto 800 /uL (0-900); Monocytes Percent Auto 5.7 % (3-14); Neutrophils Absolute Auto 9100 /uL (1500-7000); Neutrophils Percent Auto 66.6 % (50-75); Platelet Count 406 X10^3/uL (150-400); Red Blood Cell Count 4.11 X10^6/uL (4.0-5.2); Red Cell Distribution Width 13.1 % (11.6-14.8); White Blood Cell Count 13.7 X10^3/uL (4.5-11.0)
[2022-06-05 18:51] LABS: PTT Partial Thromboplastin Tim 34 SECONDS (26-36)
[2022-06-05 18:56] LABS: Alanine Aminotransferase 22 IU/L (<35); Albumin 3.3 g/dL (3.5-5.0); Alkaline Phosphatase 112 U/L (38-126); Aspartate Aminotransferase 22 IU/L (14-36); BUN Creatinine Ratio 31.3 (6-22); Bilirubin Total 0.4 mg/dL (0.2-1.3); Blood Urea Nitrogen 31 mg/dL (7-17); Calcium 8.8 mg/dL (8.4-10.2); Carbon Dioxide 18 mmol/L (22-32); Chloride 109 mmol/L (98-107); Creatine Kinase 93 U/L (30-135); Estimated Glomerular Filt Rate > 60 mL/min (>60); Globulin 3.2 g/dL (1.7-4.1); Glucose 117 mg/dL (70-100); HEMOLYSIS < 15 (0-50); Lipase 52 U/L (23-300); Magnesium 1.4 mg/dL (1.6-2.3); Potassium 4.5 mmol/L (3.4-5.1); Sodium 136 mmol/L (137-145); Total Protein 6.5 g/dL (6.3-8.2)
[2022-06-05 19:07] LABS: Troponin I < 0.012 ng/mL (0.01-0.034)
--- NOTE | 2022-06-05 20:56 | ED_ITS ---
HPI - Headache General Chief Complaint: Headache Stated Complaint: Headache, Runny nose, L side of face pain Time Seen by Provider: 06/05/22 20:56 Source: patient Mode of arrival: Family Vehicle Limitations: no limitations History of Present Illness HPI Narrative: This is a 47-year-old female insulin-dependent diabetic medication for blood pressure and asthma with history of migraines with complaint of headache for the past 5 days which has been persistent. Patient states she is had some postnasal drip, left-sided facial pain and left-sided headache and left ear pain. She describes some dizziness, no vertigo or room spinning. Some nausea but no vomiting actively. She is tried her normal migraine medications without any improvement. Denies any fevers or chills. No acute vision changes. Patient denies any speech changes. No numbness, tingling or weakness of her upper or lower extremities. No diarrhea constipation, no urinary symptoms. Patient does note she is had issues with ear infections in the past. Patient states she is allergic to latex, penicillin, Dilaudid and adhesive. Former tobacco user, occasional alcohol, no illicit. Related Data Home Medications Medication Instructions Recorded Confirmed albuterol sulfate 90 mcg/actuation 2 puff inhalation Q4-6H PRN 12/09/19 12/21/19 aerosol inhaler Shortness Of Breath Or Wheezing cyclobenzaprine 10 mg tablet 10 mg PO TID PRN Muscle Spasm 12/09/19 12/21/19 fluticasone propionate 110 1 puff inhalation BID PRN 12/09/19 12/21/19 mcg/actuation HFA aerosol inhaler Shortness Of Breath Or Wheezing (Flovent HFA) glimepiride 4 mg tablet 4 mg PO DAILY 12/09/19 12/21/19 lisinopril 20 mg tablet 20 mg PO BID 12/09/19 12/21/19 Previous Rx's Medication Instructions Recorded insulin NPH isoph U-100 human 100 20 unit (0.2 mL) SUBCUT BID #10 mL 12/09/19 unit/mL subcutaneous suspension insulin syringe-needle U-100 1 mL #100 ea 12/09/19 31 gauge x 5/16 (BD Insulin Syringe Ultra-Fine) meclizine 25 mg tablet 25 mg PO TID PRN dizziness #30 tabs 12/09/19 ondansetron 8 mg disintegrating 8 mg PO Q8H PRN nausea and 12/09/19 tablet vomiting #20 tabs prochlorperazine maleate 10 mg 10 mg PO Q6H PRN nausea and 12/21/19 tablet (Compazine) vomiting #20 tabs oxycodone-acetaminophen 5 mg-325 1 tab PO Q6H PRN pain #10 tabs 06/21/20 mg tablet (Percocet) ciprofloxacin HCl 0.2 % ear drops 5 drp EAR-LEFT BID 10 days #14 ea 06/05/22 in a dropperette Allergies Allergy/AdvReac Type Severity Reaction Status Date / Time Iodine and Iodide Containing Allergy Hives Verified 06/05/22 17:42 Produc latex Allergy Rash Verified 06/05/22 17:42 Penicillins Allergy Anaphylaxis Verified 06/05/22 17:42 adhesive AdvReac Rash Verified 06/05/22 17:42 hydromorphone [From Dilaudid] AdvReac Nausea Verified 06/05/22 17:42 Review of Systems Review of Systems ROS Unobtainable: All systems reviewed & are unremarkable except as noted in HPI and below Patient History Medical History (Updated 06/05/22 @ 21:58 by Renetta Perry DO) Acute vestibular neuritis Asthma Bipolar 1 disorder Colon polyps Fibromyalgia Hypertension Type 2 diabetes mellitus Surgical History History of colonoscopy Family History Father Hypertension Bipolar disorder Mother Cancer Diabetes mellitus Daughter No significant medical problems Social History household members: significant other, family and children Smoking Status: Former smoker alcohol intake: current Smoking Status: Former smoker alcohol intake frequency: holidays/special occasions only Substance Use Type: does not use Exam Narrative Exam Narrative: GEN: well nourished, well appearing female, alert and oriented x 3, patient appears to be in mild distress. HEENT: Atraumatic, pupils are equal round reactive to light, extraocular movements are intact, nares are clear, TM on the left appears to be perforated and canal appear swollen, right TM is intact. There is no conjunctival pallor. Throat is clear without any exudates, erythema, tonsillar enlargement or uvular deviation, no facial droop. No swelling, no warmth or erythema to the ear or face. Normal speech. HEART: Regular rate and rhythm without murmur, clicks, rubs. No carotid bruits, pulses are equal in upper and lower extremities LUNGS:Lungs clear to auscultation, no wheezes, rales, crackles, chest moves symmetrically ABD:bowel sounds normal, soft, non-tender, no guarding, rebound, rigidity, no masses noted, no hepatosplenomegaly :No CVA tenderness MSCL: Non-tender, no muscle atrophy, muscles strength 5/5 upper and lower extremities, full range of motion, normal gait NEURO:CN 2-12 intact, sensation normal, finger nose finger test normal, heel rose test normal, romberg normal Initial Vital Signs Initial Vital Signs: Vital Signs Temperature 97.8 F 06/05/22 17:34 Pulse Rate 96 H 06/05/22 17:34 Respiratory Rate 14 06/05/22 17:34 Blood Pressure 197/119 H 06/05/22 17:34 Pulse Oximetry 99 06/05/22 17:34 Oxygen Delivery Method 06/05/22 17:34 Scores NIH Stroke Scale Level of Conciousness: Alert, keenly responsive Ask month/age: Answers both questions correctly. Open/close eyes, close hand: Performs both tasks correctly Best gaze horizontal: Normal Visual caldera: No visual loss Facial palsy: Normal symetrical movement Left arm drift: No drift for full 10 sec Right arm drift: No drift for full 10 sec Left leg drift: No drift for full 5 sec Right leg drift: No drift for full 5 sec Limb ataxia: Absent Sensory on face/arms/legs: Normal, no sensory loss Best language: No aphasia, normal Dysarthria: Normal Extinction or inattention: No abnormality Total NIH Stroke scale score: 0 Course Orders Ordered: Discontinued Medications Sodium Chloride (Normal Saline 0.9%) 1,000 mls @ 1,000 mls/hr IV BOLUS ONE Stop: 06/05/22 22:26 Ketorolac Tromethamine (Ketorolac 30 Mg/Ml Vial) 15 mg IV NOW ONE Stop: 06/05/22 21:28 Ketorolac Tromethamine (Ketorolac 30 Mg/Ml Vial) 30 mg IM NOW ONE Stop: 06/05/22 21:56 Last Admin: 06/05/22 22:18 Dose: 30 mg Documented By: GC Metoclopramide HCl (Metoclopramide 10 Mg/2 Ml Inj) 10 mg IV NOW ONE Stop: 06/05/22 21:28 Metoclopramide HCl (Metoclopramide Hcl 10 Mg Tablet) 10 mg PO NOW ONE Stop: 06/05/22 21:56 Ondansetron HCl (Ondansetron 4 Mg Odt) 4 mg SL NOW ONE Stop: 06/05/22 22:08 Last Admin: 06/05/22 22:17 Dose: 4 mg Documented By: RUBI Vital Signs Vital signs: Vital Signs - 8 hr 06/05/22 17:34 06/05/22 17:42 06/05/22 20:03 Temperature 97.8 F Pulse Rate 96 H 90 Respiratory Rate 14 Blood Pressure 197/119 H 205/113 H Pulse Oximetry 99 97 Oxygen Delivery Method Room Air 06/05/22 20:04 06/05/22 20:04 06/05/22 20:30 Temperature Pulse Rate 90 Respiratory Rate Blood Pressure 163/81 H 163/77 H Pulse Oximetry 96 Oxygen Delivery Method 06/05/22 20:30 Temperature Pulse Rate 87 Respiratory Rate 26 H Blood Pressure Pulse Oximetry 95 Oxygen Delivery Method Room Air MDM - Headache Lab Data Result diagrams: 06/05/22 18:18 06/05/22 18:18 Labs: Lab Results 06/05/22 06/05/22 06/05/22 Range/Units 17:35 18:18 18:18 WBC 13.7 H (4.5-11.0) X10^3/uL RBC 4.11 (4.0-5.2) X10^6/uL Hgb 11.9 L (12.0-16.0) g/dL Hct 35.4 L (36-46) % MCV 86.0 (80-100) fL MCH 28.9 (26-34) PG MCHC 33.6 (30-36) % RDW 13.1 (11.6-14.8) % Plt Count 406 H (150-400) X10^3/uL Neut % (Auto) 66.6 (50-75) % Lymph % (Auto) 24.3 L (25-40) % [place] % (Auto) 5.7 (3-14) % Eos % (Auto) 2.5 (2-4) % Baso % (Auto) 0.9 (0-2) % Neut # (Auto) 9100 H (9216-8271) /uL Lymph # (Auto) 3300 (7221-0161) /uL [place] # (Auto) 800 (0-900) /uL Eos # (Auto) 300 (0-450) /uL Baso # (Auto) 100 (0-100) /uL PT 11.2 (10.1-12.7) SECONDS INR 1.0 (0.9-1.3) APTT 34 (26-36) SECONDS Sodium (137-145) mmol/L Potassium (3.4-5.1) mmol/L Chloride (98-107) mmol/L Carbon Dioxide (22-32) mmol/L BUN (7-17) mg/dL Creatinine (0.52-1.04) mg/dL Estimated GFR (>60) mL/min BUN/Creatinine Ratio (6-22) Glucose (70-100) mg/dL Calcium (8.4-10.2) mg/dL Magnesium (1.6-2.3) mg/dL Total Bilirubin (0.2-1.3) mg/dL AST (14-36) IU/L ALT (<35) IU/L Alkaline Phosphatase (38-126) U/L Total Creatine Kinase (30-135) U/L CK-MB (CK-2) CK-MB (CK-2) Rel Index Troponin I (0.01-0.034) ng/mL Total Protein (6.3-8.2) g/dL Albumin (3.5-5.0) g/dL Globulin (1.7-4.1) g/dL Albumin/Globulin Ratio (1.0-2.8) Lipase (23-300) U/L Urine RBC (0-5/HPF) Urine WBC (0-5/HPF) Ur Squamous Epith Cells (0-5/HPF) Urine Bacteria (None) Ur Culture Indicated? SARS-CoV-2 (PCR) Negative (Negative) Influenza A (RT-PCR) Flu a negative (NEGATIVE) Influenza B (RT-PCR) Flu b negative (NEGATIVE) RSV (PCR) Negative (Negative) 06/05/22 06/05/22 Range/Units 18:18 21:41 WBC (4.5-11.0) X10^3/uL RBC (4.0-5.2) X10^6/uL Hgb (12.0-16.0) g/dL Hct (36-46) % MCV (80-100) fL MCH (26-34) PG MCHC (30-36) % RDW (11.6-14.8) % Plt Count (150-400) X10^3/uL Neut % (Auto) (50-75) % Lymph % (Auto) (25-40) % [place] % (Auto) (3-14) % Eos % (Auto) (2-4) % Baso % (Auto) (0-2) % Neut # (Auto) (5138-1093) /uL Lymph # (Auto) (1157-0004) /uL [place] # (Auto) (0-900) /uL Eos # (Auto) (0-450) /uL Baso # (Auto) (0-100) /uL PT (10.1-12.7) SECONDS INR (0.9-1.3) APTT (26-36) SECONDS Sodium 136 L (137-145) mmol/L Potassium 4.5 (3.4-5.1) mmol/L Chloride 109 H (98-107) mmol/L Carbon Dioxide 18 L (22-32) mmol/L BUN 31 H (7-17) mg/dL Creatinine 0.99 (0.52-1.04) mg/dL Estimated GFR > 60 (>60) mL/min BUN/Creatinine Ratio 31.3 H (6-22) Glucose 117 H (70-100) mg/dL Calcium 8.8 (8.4-10.2) mg/dL Magnesium 1.4 L (1.6-2.3) mg/dL Total Bilirubin 0.4 (0.2-1.3) mg/dL AST 22 (14-36) IU/L ALT 22 (<35) IU/L Alkaline Phosphatase 112 (38-126) U/L Total Creatine Kinase 93 (30-135) U/L CK-MB (CK-2) TNP CK-MB (CK-2) Rel Index TNP Troponin I < 0.012 (0.01-0.034) ng/mL Total Protein 6.5 (6.3-8.2) g/dL Albumin 3.3 L (3.5-5.0) g/dL Globulin 3.2 (1.7-4.1) g/dL Albumin/Globulin Ratio 1.0 (1.0-2.8) Lipase 52 (23-300) U/L Urine RBC 1-5/hpf D (0-5/HPF) Urine WBC 1-5/hpf (0-5/HPF) Ur Squamous Epith Cells 5-10 /hpf H (0-5/HPF) Urine Bacteria Moderate (10-30) H (None) Ur Culture Indicated? Specimen cultured SARS-CoV-2 (PCR) (Negative) Influenza A (RT-PCR) (NEGATIVE) Influenza B (RT-PCR) (NEGATIVE) RSV (PCR) (Negative) Point of Care Testing Test Results Negative Urine Dip Bedside Urine Glucose Negative Bedside Urine Bilirubin - Negative Bedside Urine Ketone - Negative Urine Specific Webb 1.030 Bedside Urine Occult Blood ++ Bedside Urine pH 6.0 Bedside Urine Protein +++ 300 Bedside Urine Urobilinogen - Negative Bedside Urine Nitrite - Negative Bedside Urine Leukocytes +/- [address] scan - head: Radiologist's Impression: Ewa Gross??47??F??1975 ? Allergy/Adv: Iodine and Iodide Containing Produc, latex, Penicillins, adhesive, hydromorphone (More??) Close Head CT (Signed) Frank Acevedo - 06/05/22 Chest X-Ray (Signed) Frank Acevedo - 06/05/22 Chest X-Ray (Signed) Gabriel Sheets - 02/13/22 Abdomen/Pelvis CT (Signed) Gabriel Sheets - 06/21/20 Brain MRI (Signed) Ancelmo Wallace - 12/08/[address] (Signed) Ramin Dueñas - 12/08/19 Chest X-Ray (Signed) Gabriel Cuenca - 12/08/19 Breast Ultrasound (Signed) Aliya Smith - 04/09/19 Chest X-Ray (Signed) Aliya Smith - 04/09/19 Abdomen/Pelvis CT (Signed) Marcos Mathur - 11/28/18 Launch?[address] [address] [address] Scan Report Signed Patient: Ewa Gross MR#: [id number] : 1975 Acct:[id number] Age/Sex: 47 / F Date of Service: 06/05/22 Loc: ED Accession Number: [id number] ?? Procedure: CT head/brain wo con Ordering Provider: Dede Harvey D.O. PROCEDURE:? CT HEAD/BRAIN WO CON ? INDICATIONS:? headache, HTN ? TECHNIQUE:? Noncontrast 4.5 mm thick angled axial sections acquired from the foramen magnum to the vertex, with coronal and sagittal reformats.? For radiation dose reduction, the following was used:? automated exposure control, adjustment of mA and/or kV according to patient size.? ? COMPARISON:? [facility], CT, CT HEAD/BRAIN WO CON, 12/08/2019, 16:43. ? FINDINGS:? Image quality:? Excellent.? ? CSF spaces:? Basal cisterns are patent.? No extra-axial fluid collections.? Ventricles are normal in size and shape.? ? Brain:? No midline shift.? No intracranial masses or hemorrhage.? Gordillo-white matter interface is normal.? ? Skull and face:? Calvarium and visualized facial bones are intact, without s uspicious lesions.? ? Sinuses:? Visualized sinuses and mastoids are clear.? Partially visualized rig ht-sided kody bullosa incidentally noted. ? ? ? IMPRESSION:? No acute intracranial hemorrhage is seen.? ? No acute intracranial process is seen.? ? Stable from prior. ? ? Dictated by: Frank Acevedo M.D. on 06/05/2022 at 17:19 ? ? Approved by: Frank Acevedo M.D. on 06/05/2022 at 17:20?? Chest x-ray: Radiologist's Impression: [address] [address] XRay Report Signed Patient: Ewa Gross MR#: [id number] : 1975 Acct:[id number] Age/Sex: 47 / F Date of Service: 06/05/22 Loc: ED Accession Number: [id number] ?? Procedure: XR chest 1V Ordering Provider: Dede Harvey D.O. PROCEDURE:? XR CHEST 1V ? INDICATIONS:? chest pain ? TECHNIQUE:? One view of the chest was acquired.? ? COMPARISON:? [facility], CR, XR CHEST 1V, 12/08/2019, 15:12.? [facility], CR, XR CHEST 2V, 02/13/2022, 0:33. ? FINDINGS:? ? Surgical changes and devices:? None.? ? Lungs and pleura:? Lungs are clear.? No pleural effusions or pneumothorax.? ? Mediastinum:? Mediastinal contours appear normal.? Heart size is normal.? ? Bones and chest wall:? No suspicious bony lesions.? [id number] dextro convex scoliosis is seen.? Overlying soft tissues appear unremarkable.? ? ? IMPRESSION:? ? No acute cardiopulmonary process is seen.? ? Dextroconvex scoliosis noted. ? ? ? Dictated by: Frank Acevedo M.D. on 06/05/2022 at 17:21 ? ? Approved by: Frank Acevedo M.D. on 06/05/2022 at 17:22?? [facility] Narrative Medical decision making narrative: This is a 47-year-old female with multiple medical issues who presents with complaint of persistent migraine symptoms but also some dizziness and left-sided headache and ear base pain. Patient's neuro exam is overall reassuring, she was found to have appears to be a perforated tympanic membrane an otitis externa. Patient does not have any signs of sepsis does not appear to have any external infection cellulitis or abscess appreciated. Patient's labs overall are reassuring with no electrolyte abnormalities or other causes for her symptoms. Head CT was obtained which is negative, patient received medication for headache which was helpful. She also received referral for her ear, antibiotics and strict return precautions. Discharge Plan Departure Patient Disposition: Home Clinical Impression: Migraine, Otitis externa, Perforated tympanic membrane Activity Restrictions/Additional Instructions: Follow-up with ENT, you do appear to have some infection on that left ear with your perforated TM. This is likely worsening your migraines. Please use antibiotic ear drops to the left ear. Drops to the affected ear twice daily. Prescription sent to [facility]. Please return for fevers, rapidly worsening pain, persistent vomiting, new vision changes, new drainage from her ear that is bloody, hearing changes, new weakness, numbness loss of sensation or other new or concerning changes. Prescriptions: New ciprofloxacin HCl 0.2 % dropperette 5 drp EAR-LEFT BID 10 Days Qty: 14 0RF No Action prochlorperazine maleate [Compazine] 10 mg tablet 10 mg PO Q6H PRN (Reason: nausea and vomiting) Qty: 20 0RF oxycodone-acetaminophen [Percocet] 5-325 mg tablet 1 tab PO Q6H PRN (Reason: pain) Qty: 10 0RF lisinopril 20 mg tablet 20 mg PO BID Label Comments: take 1 tablet by mouth twice a day for HIGH BLOOD PRESSURE glimepiride 4 mg tablet 4 mg PO DAILY Label Comments: take 1 tablet by mouth once daily for diabetes albuterol sulfate 90 mcg/actuation Hfa Aerosol Inhaler 2 puff INHALATION Q4-6H PRN (Reason: Shortness Of Breath Or Wheezing) Flovent HFA 110 mcg/actuation Hfa Aerosol Inhaler 1 puff INHALATION BID PRN (Reason: Shortness Of Breath Or Wheezing) cyclobenzaprine 10 mg tablet 10 mg PO TID PRN (Reason: Muscle Spasm) Rx Instructions: TID PRN for muscle spasm meclizine 25 mg tablet 25 mg PO TID PRN (Reason: dizziness) Qty: 30 0RF ondansetron 8 mg tablet,disintegrating 8 mg PO Q8H PRN (Reason: nausea and vomiting) Qty: 20 0RF insulin NPH isoph U-100 human 100 unit/mL suspension 20 unit SUBCUT BID Qty: 10 0RF (DME) insulin syringe-needle U-100 [BD Insulin Syringe Ultra-Fine] 1 mL 31 gauge x 5/16 syringe See Rx Instructions .ROUTE .MEDSUPPLY Qty: 100 0RF Rx Instructions: As directed Referrals: Ryan Gonzales MD [Physician] - Eva Cadena PA-C [Primary Care Provider] - Stand Alone Forms: Patient Portal/API, Work Release Note
[2022-06-05 22:10] LABS: Squamous Epithelial Cell Urine 5-10 /HPF (0-5/HPF)
[2022-06-05 22:11] LABS: Bacteria Urine Moderate (10-30); Culture Indicated Urine Specimen Cultured; RBC Urine 1-5/HPF (0-5/HPF); WBC Urine 1-5/HPF (0-5/HPF)
[2022-06-05] MEDS: ONDANSETRON 4 MG ODT SL (22:17)
[2022-06-05] MEDS: KETOROLAC 30 MG/ML VIAL IM (22:18)
== END 2022-06-05 22:34 | disposition home or self-care (01) ==
PROVIDERS: Emergency Medicine; Emergency Provider Emergency Medicine; PCP Physician Assistant Medical
DX: G43.909 Migraine, unspecified, not intractable, without status migrainosus (principal); H66.92 Otitis media, unspecified, left ear; H72.92 Unspecified perforation of tympanic membrane, left ear; Z20.822 Contact with and (suspected) exposure to COVID-19
CPT/HCPCS: 0241U; 36415; 70450; 71045; 80053; 81003; 81015; 81025; 82550; 83690; 83735; 84484; 85025; 85610; 85730; 87086; 93005; 93010; 96372; 99284; J1885

== ENCOUNTER → 2023-01-07 14:04 | Outpatient (CLI) | payer BC, SELFPAY ==
--- NOTE | 2023-01-07 | DI.NM.S_ITS ---
PROCEDURE: NM SAMEER PERF SPECT R&S PHARM Rest and pharmacological stress myocardial perfusion SPECT with gated imaging and ejection fraction RADIOPHARMACEUTICAL: 25.5 mCi Tc-99m tetrafosmin IV at rest and 27.5 mCi Tc-99m tetrafosmin IV at peak effect of pharmacological stress. [id number] was performed. INDICATIONS: Chest Pain TECHNIQUE: Radiopharmaceutical was injected at peak stress test, and also at rest. SPECT images were obtained. SPECT myocardial perfusion images were displayed in short axis, horizontal long axis, and vertical long axis views. Gated images were reviewed using Bablic software. COMPARISON: None. CARDIAC STRESS: A pharmacologic stress test was performed under the supervision of an attending staff, using an infusion of lexiscan 0.4mg IV x1. Hemodynamic data: There is normal blood pressure and heart rate response to pharmacologic stress. Symptoms: The patient denied anginal chest pain. Aminophylline: none EKG: No diagnostic changes of ischemia; no ectopy. FINDINGS: Raw data: There is good myocardial uptake of radiotracer. No significant motion artifacts. Left ventricle function: Gated images demonstrate normal left ventricular wall thickening. No segmental wall motion abnormalities. No transient ischemic dilation; TID is 0.96 (normal less than 1.3). Left ventricle resting end diastolic volume is 88 mL. Left ventricle stress ejection fraction is 69%; normal range is above 45%. Myocardial perfusion: There is moderately intense reversible defect in the inferior wall consistent with ischemia. No infarction. No prone imaging available due to limited mobility. SSS 11, SRS 0. IMPRESSION: Abnormal pharm nuclear stress consistent with ischemia. 1) There is moderately intense reversible defect in the inferior wall consistent with ischemia. No infarction. SSS 11, SRS 0. 2) Normal left ventricular size, wall motion, and systolic function (EF post stress 69%). 3) No ST changes with lexiscan. 4) No angina during the study. 5) No prior nuclear stress test available for comparison. Dictated by: Benja Sam MD on 01/11/2023 at 13:15 Approved by: Benja Sam MD on 01/11/2023 at 13:22
== END ==
LOC: NUCM 14:04
PROVIDERS: PCP Physician Assistant Medical; Referring Provider Physician Assistant Medical; Visit Provider Physician Assistant Medical
DX: R07.9 Chest pain, unspecified (principal); R94.39 Abnormal result of other cardiovascular function study
CPT/HCPCS: 78452; 93017; A9502; J2785

== ENCOUNTER 2023-03-14 17:06 | Emergency (ER) | payer BC, SELFPAY ==
[2023-03-14 17:17] VITALS: BP 164/84; PULSE 101; RESP 16; TEMP 36.6; O2SAT 99; BMI 42.3
--- NOTE | 2023-03-14 17:26 | DI.US.S_ITS ---
PROCEDURE: US PERIPH VENOUS LOW EXTREM BI INDICATIONS: pain and swelling TECHNIQUE: Real-time imaging, as well as color and pulse Doppler interrogation, were performed of the deep veins of both legs from the inguinal ligament to the popliteal fossa, with documentation of the visualized calf veins. COMPARISON: None. FINDINGS: Right: The common femoral, femoral, popliteal, and the visualized calf veins are normally compressible, and free of intraluminal thrombus. Color and pulse Doppler demonstrate normal phasic intravascular flow. There is normal augmentation response to distal compression maneuver. Left: The common femoral, femoral, popliteal, and the visualized calf veins are normally compressible, and free of intraluminal thrombus. Color and pulse Doppler demonstrate normal phasic intravascular flow. There is normal augmentation response to distal compression maneuver. IMPRESSION: No evidence of DVT in visualized bilateral lower extremity veins. Dictated by: Marcos Mathur M.D. on 03/14/2023 at 18:31 Approved by: Marcos Mathur M.D. on 03/14/2023 at 18:32
--- NOTE | 2023-03-14 18:26 | ED_ITS ---
HPI - Extremity Problem General Chief complaint: Extremity Problem,Nontraumatic Stated complaint: Leg cold, Loosing color/blueing, Numb-pain Time Seen by Provider: 03/14/23 18:26 Source: patient, family, RN notes reviewed and old records reviewed Mode of arrival: Wheelchair Limitations: no limitations History of Present Illness HPI Narrative: 48-year-old female insulin dependent diabetic, hypertension, dyslipidemia, asthma, history of migraines with recent cardiac catheterization a month ago which was found to be negative. Patient states that her left leg has felt little cooler, it has been crampy, she states pain does not seem to make it any worse she is noticed some color change/bruising on the heel which is new. Patient states she normally gets cramps in her legs usually one-sided. She normally takes [id number] medications she has a history of neuropathy and takes Lyrica for this as well. Patient states this has been a little bit more intense than her typical in her regular medications have been as effective. She denies any back pain. She states it seems to be localized in the calf down to her heel but is starting to move upper thigh. Patient states no swelling of the extremity, no pallor, erythema or cyanosis does have some small bruise spots on her heel. She denies any trauma or injury. Patient states no fevers, no chest pain or shortness of breath, no nausea or vomiting no other GI or urinary symptoms. She does note they had COVID at the beginning of the month but have since recovered. She states no surgeries besides cardiac catheterization about 2 months ago, patient states that she did not have a cardiac stent. This was done for chest pain. She is allergic to Dilaudid, contrast dye but handles it with pretreatment. Denies tobacco, no alcohol, occasional edibles but no IV or injection drugs. Related Data Home Medications Medication Instructions Recorded Confirmed albuterol sulfate 90 mcg/actuation 2 puff inhalation Q4-6H PRN 12/09/19 12/21/19 aerosol inhaler Shortness Of Breath Or Wheezing cyclobenzaprine 10 mg tablet 10 mg PO TID PRN Muscle Spasm 12/09/19 12/21/19 fluticasone propionate 110 1 puff inhalation BID PRN 12/09/19 12/21/19 mcg/actuation HFA aerosol inhaler Shortness Of Breath Or Wheezing (Flovent HFA) glimepiride 4 mg tablet 4 mg PO DAILY 12/09/19 12/21/19 lisinopril 20 mg tablet 20 mg PO BID 12/09/19 12/21/19 Previous Rx's Medication Instructions Recorded insulin NPH isoph U-100 human 100 20 unit (0.2 mL) SUBCUT BID #10 mL 12/09/19 unit/mL subcutaneous suspension insulin syringe-needle U-100 1 mL #100 ea 12/09/19 31 gauge x 5/16 (BD Insulin Syringe Ultra-Fine) meclizine 25 mg tablet 25 mg PO TID PRN dizziness #30 tabs 12/09/19 ondansetron 8 mg disintegrating 8 mg PO Q8H PRN nausea and 12/09/19 tablet vomiting #20 tabs prochlorperazine maleate 10 mg 10 mg PO Q6H PRN nausea and 12/21/19 tablet (Compazine) vomiting #20 tabs oxycodone-acetaminophen 5 mg-325 1 tab PO Q6H PRN pain #10 tabs 06/21/20 mg tablet (Percocet) oxycodone-acetaminophen 5 mg-325 1 tab PO Q6H PRN pain #10 tabs 03/14/23 mg tablet (Percocet) Allergies Allergy/AdvReac Type Severity Reaction Status Date / Time Iodine and Iodide Containing Allergy Hives Verified 03/14/23 17:24 Produc latex Allergy Rash Verified 03/14/23 17:24 Penicillins Allergy Anaphylaxis Verified 03/14/23 17:24 adhesive AdvReac Rash Verified 03/14/23 17:24 hydromorphone [From Dilaudid] AdvReac Nausea Verified 03/14/23 17:24 Review of Systems Review of Systems ROS Unobtainable: All systems reviewed & are unremarkable except as noted in HPI and below Patient History Medical History (Updated 03/14/23 @ 18:49 by Renetta Perry DO) Colon polyps Bipolar 1 disorder Asthma Fibromyalgia Hypertension Type 2 diabetes mellitus Acute vestibular neuritis Surgical History History of colonoscopy Family History Father Hypertension Bipolar disorder Mother Cancer Diabetes mellitus Daughter No significant medical problems Social History household members: significant other, family and children Smoking Status: Former smoker alcohol intake: current Smoking Status: Former smoker alcohol intake frequency: holidays/special occasions only Substance Use Type: does not use Exam Narrative Exam Narrative: GENERAL: Alert and oriented x three, obese female in mild distress. HEENT: Head normocephalic, atraumatic, EOMI, pupils reactive, face symmetric, moist mucous membranes NECK: Supple, full range of motion CARDIOVASCULAR: Regular rate and rhythm without murmurs, rubs or gallops. RESPIRATORY: Breath sounds equal bilaterally, no wheezes rales or rhonchi. ABDOMEN: Soft, nontender. Normoactive bowel sounds all 4 quadrants. No guard ing or rebound, rigidity, no mass : No CVA tenderness BACK: No cervical, thoracic or lumbar vertebral point tenderness. Patient has normal range of motion. Muscle strength is 5/5 in lower extremities, dorsalis pedis 2+ bilaterally, patient midfoot feel slightly cooler but her foot is elevated, the rest of her heel and lower extremity is the same temperature as the alternative side. No pallor, cyanosis or erythema. No swelling left compared to right. Patient does have several small areas that look like ecchymosis that are a quarter to 0.5 cm incise over the heel and underside of the foot on the medial side. Sensation is intact in the lower extremities light touch. Cap refills less than 2 seconds in all 10 toes. EXTREMITIES: Normal range of motion, no clubbing or edema. Neurovascularly intact. NEUROLOGICAL: Cranial nerves II through XII grossly intact. Moving all extremities SKIN: Warm, dry, no petechiae, no rashes or lesions other than noted above. Initial Vital Signs Initial Vital Signs: Vital Signs Temperature 97.9 F 03/14/23 17:17 Pulse Rate 101 H 03/14/23 17:17 Respiratory Rate 16 03/14/23 17:17 Blood Pressure 164/84 H 03/14/23 17:17 Pulse Oximetry 99 03/14/23 17:17 Oxygen Delivery Method Room Air 03/14/23 17:17 Course Orders Ordered: ED Orders 03/14/23 17:26 US periph venous low extrem bi Stat Discontinued Medications Oxycodone/Acetaminophen (Oxycodone/Apap 5/325 Prepack) 1 bottle MISC SEEINSTR ONE Stop: 03/14/23 18:55 Last Admin: 03/14/23 19:07 Dose: 1 bottle Documented By: MABEL Vital Signs Vital signs: Vital Signs - 8 hr 03/14/23 17:17 03/14/23 19:11 Temperature 97.9 F Pulse Rate 101 H 100 H Respiratory Rate 16 16 Blood Pressure 164/84 H 137/78 Pulse Oximetry 99 98 Oxygen Delivery Method Room Air Room Air MDM - Extremity (Nontraumatic) Imaging Data US - DVT: Radiologist's Impression: [address] [address] Ultrasound Report Signed Patient: Ewa Gross MR#: [id number] : 1975 Acct:[id number] Age/Sex: 48 / F Date of Service: 03/14/23 Loc: ED Accession Number: [id number] Procedure: US periph venous low extrem bi Ordering Provider: Dede Harvey D.O. PROCEDURE: US PERIPH VENOUS LOW EXTREM BI INDICATIONS: pain and swelling TECHNIQUE: Real-time imaging, as well as color and pulse Doppler interrogation, were performed of the deep veins of both legs from the inguinal ligament to the popliteal fossa, with documentation of the visualized calf veins. COMPARISON: None. FINDINGS: Right: The common femoral, femoral, popliteal, and the visualized calf veins are normally compressible, and free of intraluminal thrombus. Color and pulse Doppler demonstrate normal phasic intravascular flow. There is normal augmentation response to distal compression maneuver. Left: The common femoral, femoral, popliteal, and the visualized calf veins are normally compressible, and free of intraluminal thrombus. Color and pulse Doppler demonstrate normal phasic intravascular flow. There is normal augmentation response to distal compression maneuver. IMPRESSION: No evidence of DVT in visualized bilateral lower extremity veins. Dictated by: Marcos Mathur M.D. on 03/14/2023 at 18:31 Approved by: Marcos Mathur M.D. on 03/14/2023 at 18:32 [facility] Narrative Medical decision making narrative: 48-year-old female with increased cramping of her left lower extremity which she does sometimes get, she has a history of neuropathy could be flare of this she appreciates feeling of coldness to the left leg but do not appreciate accept over the foot. Rates the patient is neurovascularly intact, no swelling, no signs of arterial occlusion, DVT ultrasound is negative, there is some small areas of ecchymosis patient has had recent COVID discussed could be related although exam findings do not align with typical rash to this versus ecchymosis from local trauma. Patient's exam is otherwise overall appropriate and felt appropriate for discharge home. She defers anything additional for pain. Patient does note that her glucose has been elevated lately this might be contributing to worsening neuropathy. Plan for short course of pain medication. Discussed optimize glucose control. Plan for follow-up in the next day or 2 for recheck and return precautions here in the emergency department. Discharge Plan Departure Patient Disposition: Home Clinical Impression: Cramp in lower leg Activity Restrictions/Additional Instructions: Please follow up with your physician for recheck in the next 1-2 days if symptoms are persisting. You may continue your home medications as prescribed. You may take narcotic pain medication 1-2 tablets every 6 hours as needed for pain. This medication can make you sleepy do not drive, perform hazardous activities or make any major decisions while taking it. This medication will make you constipated please take a stool softener once to twice daily until stools are soft and regular. Prescription sent to [facility] in [place]. Please return for new or worsening changes, fevers, rapidly worsening symptoms, if you are leg as white or pale, blue, red, new swelling, loss of sensation, new weakness or inability to move it or other new or concerning changes. Prescriptions: New oxycodone-acetaminophen [Percocet] 5-325 mg tablet 1 tab PO Q6H PRN (Reason: pain) Qty: 10 0RF No Action prochlorperazine maleate [Compazine] 10 mg tablet 10 mg PO Q6H PRN (Reason: nausea and vomiting) Qty: 20 0RF oxycodone-acetaminophen [Percocet] 5-325 mg tablet 1 tab PO Q6H PRN (Reason: pain) Qty: 10 0RF lisinopril 20 mg tablet 20 mg PO BID Patient Comments: take 1 tablet by mouth twice a day for HIGH BLOOD PRESSURE glimepiride 4 mg tablet 4 mg PO DAILY Patient Comments: take 1 tablet by mouth once daily for diabetes albuterol sulfate 90 mcg/actuation Hfa Aerosol Inhaler 2 puff INHALATION Q4-6H PRN (Reason: Shortness Of Breath Or Wheezing) Flovent HFA 110 mcg/actuation Hfa Aerosol Inhaler 1 puff INHALATION BID PRN (Reason: Shortness Of Breath Or Wheezing) cyclobenzaprine 10 mg tablet 10 mg PO TID PRN (Reason: Muscle Spasm) Rx Instructions: TID PRN for muscle spasm meclizine 25 mg tablet 25 mg PO TID PRN (Reason: dizziness) Qty: 30 0RF ondansetron 8 mg tablet,disintegrating 8 mg PO Q8H PRN (Reason: nausea and vomiting) Qty: 20 0RF insulin NPH isoph U-100 human 100 unit/mL suspension 20 unit SUBCUT BID Qty: 10 0RF (DME) insulin syringe-needle U-100 [BD Insulin Syringe Ultra-Fine] 1 mL 31 gauge x 5/16 syringe See Rx Instructions .ROUTE .MEDSUPPLY Qty: 100 0RF Rx Instructions: As directed Referrals: Eva Cadena PA-C [Primary Care Provider] - Stand Alone Forms: Patient Portal/API
[2023-03-14] MEDS: OXYCODONE/APAP 5/325 PREPACK 1 BOTTLE MISC (19:07)
[2023-03-14 19:11] VITALS: BP 137/78; PULSE 100; RESP 16; O2SAT 98
== END 2023-03-14 19:11 | disposition home or self-care (01) ==
PROVIDERS: Emergency Provider Emergency Medicine; PCP Physician Assistant Medical
DX: R25.2 Cramp and spasm (principal); Z79.899 Other long term (current) drug therapy; Z86.16 Personal history of COVID-19
CPT/HCPCS: 93970; 99283

== ENCOUNTER 2023-03-26 18:30 | Emergency (ER) | payer OTHER, SELFPAY ==
[2023-03-26 18:42] VITALS: BP 184/66; PULSE 104; RESP 17; TEMP 36.6; O2SAT 98; BMI 42.3
--- NOTE | 2023-03-26 20:41 | ED.EXTPRO ---
HPI - Extremity Problem General Chief complaint: Extremity Problem,Nontraumatic Stated complaint: LT FOOT SPLOTCHY/PAIN/BLUE AND PURPLE/NUMB Time Seen by Provider: 03/26/23 20:29 Source: patient and family Mode of arrival: Wheelchair History of Present Illness HPI Narrative: 48-year-old female here for evaluation of pain and discomfort and skin discoloration to her left foot/lower leg. Patient was seen here in the emergency department a couple weeks ago for very similar symptoms. Had a ultrasound which showed no signs of a DVT. She is a diabetic. Most likely has a degree of neuropathy. Is not on medications specific for this. She denies any specific trauma. She states she feels like she has a foot drop on the left side. Has a very difficult time lifting her foot up. Has pain along her calf muscle radiating up into her thigh. She now has some discoloration on her heel and a blister on her heel. She feels like her left leg is cooler compared to the right. Related Data Home Medications Medication Instructions Recorded Confirmed albuterol sulfate 90 mcg/actuation 2 puff inhalation Q4-6H PRN 12/09/19 12/21/19 aerosol inhaler Shortness Of Breath Or Wheezing cyclobenzaprine 10 mg tablet 10 mg PO TID PRN Muscle Spasm 12/09/19 12/21/19 fluticasone propionate 110 1 puff inhalation BID PRN 12/09/19 12/21/19 mcg/actuation HFA aerosol inhaler Shortness Of Breath Or Wheezing (Flovent HFA) glimepiride 4 mg tablet 4 mg PO DAILY 12/09/19 12/21/19 lisinopril 20 mg tablet 20 mg PO BID 12/09/19 12/21/19 Previous Rx's Medication Instructions Recorded insulin NPH isoph U-100 human 100 20 unit (0.2 mL) SUBCUT BID #10 mL 12/09/19 unit/mL subcutaneous suspension insulin syringe-needle U-100 1 mL #100 ea 12/09/19 31 gauge x 5/16 (BD Insulin Syringe Ultra-Fine) meclizine 25 mg tablet 25 mg PO TID PRN dizziness #30 tabs 12/09/19 ondansetron 8 mg disintegrating 8 mg PO Q8H PRN nausea and 12/09/19 tablet vomiting #20 tabs prochlorperazine maleate 10 mg 10 mg PO Q6H PRN nausea and 12/21/19 tablet (Compazine) vomiting #20 tabs oxycodone-acetaminophen 5 mg-325 1 tab PO Q6H PRN pain #10 tabs 06/21/ mg tablet (Percocet) oxycodone-acetaminophen 5 mg-325 1 tab PO Q6H PRN pain #10 tabs 03/14/ mg tablet (Percocet) hydrocodone 5 mg-acetaminophen 325 1 tab PO Q8H PRN pain #10 tabs 03/26/23 mg tablet Allergies Allergy/AdvReac Type Severity Reaction Status Date / Time Iodine and Iodide Containing Allergy Hives Verified 03/26/23 18:42 Produc latex Allergy Rash Verified 03/26/23 18:42 Penicillins Allergy Anaphylaxis Verified 03/26/23 18:42 adhesive AdvReac Rash Verified 03/26/23 18:42 hydromorphone [From Dilaudid] AdvReac Nausea Verified 03/26/23 18:42 Review of Systems Constitutional Constitutional: Reports system reviewed and no additional complaints, except as documented Musculoskeletal Musculoskeletal: Reports system reviewed and no additional complaints, except as documented Integumentary/Breasts Skin/Breast: Reports system reviewed and no additional complaints, except as documented Neurologic Neurologic: Reports system reviewed and no additional complaints, except as documented Patient History Medical History Colon polyps Bipolar 1 disorder Asthma Fibromyalgia Hypertension Type 2 diabetes mellitus Acute vestibular neuritis Surgical History History of colonoscopy Family History Father Hypertension Bipolar disorder Mother Cancer Diabetes mellitus Daughter No significant medical problems Social History household members: significant other, family and children Smoking Status: Former smoker alcohol intake: current Smoking Status: Former smoker alcohol intake frequency: holidays/special occasions only Substance Use Type: does not use Exam Initial Vital Signs Initial Vital Signs: Vital Signs Temperature 97.9 F 03/26/23 18:42 Pulse Rate 104 H 03/26/23 18:42 Respiratory Rate 17 03/26/23 18:42 Blood Pressure 184/66 H 03/26/23 18:42 Pulse Oximetry 98 03/26/23 18:42 Oxygen Delivery Method Room Air 03/26/23 18:42 [facility] Head: normal to inspection and normocephalic Cardio Pulses: dorsalis pedis present on the left Skin Other: Patient does have a blister on the medial aspect of the left heel. There was no surrounding erythema. She does have other independent areas of what appears to be ecchymosis. Is no petechiae. No pustules. Neuro Sensory Exam: no sensory deficits noted Extrem General: capillary refill normal Other: She is tenderness along the left calf muscle. The Achilles tendon is intact. She is tenderness in her calf muscle with dorsiflexion of the left foot. Course Orders Ordered: Discontinued Medications Hydrocodone Bitart/Acetaminophen (Hydrocodone/Acet 5/325 Prepack) 1 bottle MISC SEEINSTR ONE Stop: 03/26/23 20:42 Last Admin: 03/26/23 20:55 Dose: 1 bottle Documented By: ALEXANDRE Vital Signs Vital signs: Vital Signs - 8 hr 03/26/23 21:10 Pulse Rate 99 H Respiratory Rate 16 Blood Pressure 180/80 H Pulse Oximetry 99 Oxygen Delivery Method Room Air MDM - Extremity (Nontraumatic) MDM Narrative Medical decision making narrative: Patient is neurovascularly intact. She is a blister on the medial aspect of the left foot but no other indication of an infection. Blisters most likely because she is changed the mechanics fell she walks because of the discomfort that she is having in her left leg and the blister is the result of rubbing against her shoe. She is been evaluated for a DVT in the past for these symptoms and it was negative. Her symptoms are not consistent with an ischemic limb. She is brisk cap refill and good dorsalis pedis pulse that is palpable. I have some question is whether not this is radiculopathy potentially from a lower back issue but she is not having any lower back pain. I have low suspicion for fracture. No indication for x-rays today. Also considered other pathology such as complex regional pain syndrome but she does not have any injury to her lower extremity either recently or in the past. No further workup required in the emergency department today. I have recommended that she contact her primary doctor for a follow-up as she may need to get in to see physical therapy or potentially advanced imaging like an MRI. She was given return precautions Discharge Plan Departure Patient Disposition: Home Clinical Impression: Left leg pain Instructions: How To Perform RICE (Rest, Ice, Compress, Elevate), How to Apply an Elastic Wrap on Ankle Activity Restrictions/Additional Instructions: I do recommend that you keep your scheduled appointment with your primary care doctor to discuss further evaluation of your leg pain. This may include a referral to see Orthopedics, Physical therapy were maybe even advanced imaging such as an MRI of your leg or your lower back. Prescriptions: New hydrocodone-acetaminophen 5-325 mg tablet 1 tab PO Q8H PRN (Reason: pain) Qty: 10 0RF No Action prochlorperazine maleate [Compazine] 10 mg tablet 10 mg PO Q6H PRN (Reason: nausea and vomiting) Qty: 20 0RF oxycodone-acetaminophen [Percocet] 5-325 mg tablet 1 tab PO Q6H PRN (Reason: pain) Qty: 10 0RF oxycodone-acetaminophen [Percocet] 5-325 mg tablet 1 tab PO Q6H PRN (Reason: pain) Qty: 10 0RF lisinopril 20 mg tablet 20 mg PO BID Patient Comments: take 1 tablet by mouth twice a day for HIGH BLOOD PRESSURE glimepiride 4 mg tablet 4 mg PO DAILY Patient Comments: take 1 tablet by mouth once daily for diabetes albuterol sulfate 90 mcg/actuation Hfa Aerosol Inhaler 2 puff INHALATION Q4-6H PRN (Reason: Shortness Of Breath Or Wheezing) Flovent HFA 110 mcg/actuation Hfa Aerosol Inhaler 1 puff INHALATION BID PRN (Reason: Shortness Of Breath Or Wheezing) cyclobenzaprine 10 mg tablet 10 mg PO TID PRN (Reason: Muscle Spasm) Rx Instructions: TID PRN for muscle spasm meclizine 25 mg tablet 25 mg PO TID PRN (Reason: dizziness) Qty: 30 0RF ondansetron 8 mg tablet,disintegrating 8 mg PO Q8H PRN (Reason: nausea and vomiting) Qty: 20 0RF insulin NPH isoph U-100 human 100 unit/mL suspension 20 unit SUBCUT BID Qty: 10 0RF (DME) insulin syringe-needle U-100 [BD Insulin Syringe Ultra-Fine] 1 mL 31 gauge x 5/16 syringe See Rx Instructions .ROUTE .MEDSUPPLY Qty: 100 0RF Rx Instructions: As directed Referrals: Eva Cadena PA-C [Primary Care Provider] - Stand Alone Forms: Patient Portal/API
[2023-03-26] MEDS: HYDROCODONE/ACET 5/325 PREPACK 1 BOTTLE MISC (20:55)
[2023-03-26 21:10] VITALS: BP 180/80; PULSE 99; RESP 16; O2SAT 99
== END 2023-03-26 21:10 | disposition home or self-care (01) ==
PROVIDERS: Emergency Provider Emergency Medicine; PCP Physician Assistant Medical
DX: M79.605 Pain in left leg (principal); Z79.899 Other long term (current) drug therapy
CPT/HCPCS: 99282; 99283